=== PATIENT | male | born 1955 | race Caucasian/White ===

== ENCOUNTER 2018-11-17 18:14 | Inpatient (IN) | payer BC ==
--- NOTE | 2018-11-17 18:48 | ED ---
Lower Extremity - HPI Summary HPI Summary: This patient is a 62 year old male brought in by EMS presenting to [facility] with a chief complaint of gangrene in his bilateral toes. He had multiple dressings changed today. He reports pain in the toes and that he has been happening for a while. He reports cough. Pt denies any fever, chills, erythema of eyes, sore throat, CP, SOB, abdominal pain, N/V, dysuria, hematuria, myalgia, edema, rash, or dizziness. - History of Current Complaint Chief Complaint: EDExtremityLower Stated Complaint: PAIN IN BOTH FEET PER EMS Time Seen by Provider: 11/17/18 18:36 Hx Obtained From: Patient Severity Initially: Moderate Severity Currently: Moderate Pain Intensity: 6 Pain Scale Used: 0-10 Numeric - Allergies/Home Medications Allergies/Adverse Reactions: Allergies Allergy/AdvReac Type Severity Reaction Status Date / Time hydrochlorothiazide Allergy Unknown Verified 11/17/18 18:51 Reaction Details Latex, Natural Rubber Allergy Unknown Verified 11/17/18 18:51 Reaction Details shellfish derived Allergy Unknown Verified 11/17/18 18:51 Reaction Details zolpidem [From Ambien] Allergy Unknown Verified 11/17/18 18:51 Reaction Details Home Medications: Home Medications ALPRAZolam TAB* [Xanax TAB*] 0.25 mg PO BID PRN 11/17/18 [History Confirmed ] Acetaminophen [Acetaminophen Extra Strength] 1,000 mg PO TID PRN 11/17/18 [ History Confirmed 11/17/18] Aspirin EC TAB* [Ecotrin EC Low Dose 81 MG*] 81 mg PO DAILY 11/17/18 [History Confirmed 11/17/18] Atorvastatin* [Lipitor*] 80 mg PO DAILY 11/17/18 [History Confirmed 11/17/18] Cholecalciferol CAP/TAB(NF) [Vitamin D3 CAP/TAB (NF)] 50,000 unit PO WEEKLY [History Confirmed 11/17/18] Clopidogrel TAB* [Plavix TAB*] 75 mg PO DAILY 11/17/18 [History Confirmed ] Divalproex Sprinkle CAP* [Depakote Sprinkle CAP*] 125 mg PO BID 11/17/18 [ History Confirmed 11/17/18] Fluticasone NASAL SPRAY 50MCG* [Flonase NASAL SPRAY 50MCG*] 1 spray BOTH NARES DAILY 11/17/18 [History Confirmed 11/17/18] Folic Acid TAB* [Folvite TAB*] 1 mg PO DAILY 11/17/18 [History Confirmed ] Furosemide TAB* [Lasix TAB*] 20 mg PO DAILY 11/17/18 [History Confirmed 11/17/18 ] Glycerin ADULT SUPP* 1 supp CA DAILY PRN 11/17/18 [History Confirmed 11/17/18] Lidocaine PATCH 5%* [Lidoderm 5% Patch*] 2 patch TRANSDERM DAILY 11/17/18 [ History Confirmed 11/17/18] Magnesium Hydroxide LIQ* [Milk of Magnsami LIQ*] 30 ml PO DAILY PRN 11/17/18 [ History Confirmed 11/17/18] Melatonin 5 mg PO BEDTIME 11/17/18 [History Confirmed 11/17/18] Metoprolol Succinate XL TAB* [Toprol XL TAB*] 150 mg PO DAILY 11/17/18 [History Confirmed 11/17/18] Omeprazole CAP (NF) [Prilosec CAP* 20 MG] 40 mg PO DAILY 11/17/18 [History Confirmed 11/17/18] Potassium Chlor TAB* [Klor Con ER TAB*] 20 meq PO DAILY 11/17/18 [History Confirmed 11/17/18] Ranitidine HCl (Nf) [Zantac] 75 mg PO BID 11/17/18 [History Confirmed 11/17/18] Senna TAB 8.6 mg* [Senokot 8.6 mg TAB*] 1 tab PO QPM PRN 11/17/18 [History Confirmed 11/17/18] Sertraline* [Zoloft*] 25 mg PO BID 11/17/18 [History Confirmed 11/17/18] Tamsulosin CAP* [Flomax CAP*] 0.4 mg PO BEDTIME 11/17/18 [History Confirmed ] Thiamine TAB* [Vitamin B-1 TAB*] 100 mg PO DAILY 11/17/18 [History Confirmed ] amLODIPine TAB* [Norvasc 5 mg TAB*] 10 mg PO DAILY 11/17/18 [History Confirmed 11/17/18] traMADol TAB* [Ultram*] 50 mg PO Q6HR PRN 11/17/18 [History Confirmed 11/17/18] traZODone TAB* [Desyrel TAB*] 100 mg PO BEDTIME PRN 11/17/18 [History Confirmed 11/17/18] PMH/Surg Hx/FS Hx/Imm Hx Infectious Disease History: Unable to Obtain/Confirm Infectious Disease History: Denies: Traveled Outside the [place] in Last 30 Days Review of Systems Negative: Fever, Chills Negative: Erythema Negative: Sore Throat Negative: Chest Pain Positive: Cough. Negative: Shortness Of Breath Negative: Abdominal Pain, Vomiting, Nausea Negative: dysuria, hematuria Positive: Other - Toe pain, gangrene. Negative: Myalgia, Edema Negative: Rash Neurological: Other - neg: Dizziness All Other Systems Reviewed And Are Negative: No Physical Exam - Summary Physical Exam Summary: Constitutional: Well-developed, Well-nourished, Alert. (-) Distressed Skin: Warm, Dry. Tip of the left 4th toe down to the interphalangeal joint is necrotic. The nail beds of the third and 4th toe on the left foot are necrotic. Ulcerations at the base of the left 5th toe, base of the right 4th toe. HENT: Normocephalic; Atraumatic Eyes: Conjunctiva normal Neck: Musculoskeletal ROM normal neck. (-) JVD, (-) Stridor, (-) Tracheal deviation Cardio: Rhythm regular, rate normal, Heart sounds normal; Intact distal pulses; The pedal pulses are 2+ and symmetric. Radial pulses are 2+ and symmetric. (-) Murmur Pulmonary/Chest wall: Effort normal. (-) Respiratory distress, (-) Wheezes, (-) Rales Abd: Soft, (-) tenderness, (-) Distension, (-) Guarding, (-) Rebound Musculoskeletal: (-) Edema Lymph: (-) Cervical adenopathy Neuro: Alert, confused. Psych: Mood and affect Normal Triage Information Reviewed: Yes Vital Signs On Initial Exam: Initial Vitals Temp Pulse Resp BP Pulse Ox 99.6 F 88 18 126/75 95 11/17/18 18:33 11/17/18 18:33 11/17/18 18:33 11/17/18 18:33 11/17/18 18:33 Vital Signs Reviewed: Yes Diagnostics - Vital Signs Vital Signs Temp Pulse Resp BP Pulse Ox 11/17/18 18:33 99.6 F 88 18 126/75 95 - Laboratory Result Diagrams: 11/17/18 19:14 11/17/18 19:14 Lab Statement: Any lab studies that have been ordered have been reviewed, and results considered in the medical decision making process. - Radiology CXR Radiology Interpretation Completed By: ED Physician Summary of Radiographic Findings: No acute process. Pending offical radiologist report. Foot XR Radiology Interpretation Completed By: ED Physician Summary of Radiographic Findings: No fracture. Pending official radiologist report. Re-Evaluation - Re-Evaluation First Eval Re-Evaluation Time: 22:02 Comment: Spoke with hudson, states he does have altered mental status and that his toes do look worse than earlier today. [facility] wound clinic was considering sending him to the hospital. States he has follow up with vascular specialist. Lower Extremity Course/Dx - Course Course Of Treatment: This patient is a 62 year old male brought in by EMS presenting to [facility] with a chief complaint of gangrene in his bilateral toes. Physical exam reveals necrotic areas and ulcers in his toes and feet. Imaging was unremarkable. Patient has in tact dorsalis pedis pulses. No evidence of acute arterial occlusion. Dr. Redmond, Hospitalist, accepted the patient for admission. A plan for admission was discussed with the patient and he was agreeable with this plan. - Diagnoses Provider Diagnoses: Gangrene of foot, Osteomyelitis of toe, Delirium Discharge ED - Sign-Out/Discharge Documenting (check all that apply): Patient Departure - Admission Patient Received Moderate/Deep Sedation with Procedure: No - Discharge Plan Condition: Stable Disposition: ADMITTED TO [facility] - Attestation Statements Document Initiated by Scribe: Yes Documenting Scribe: Chai Blake Provider For Whom Scribe is Documenting (Include Credential): Andrew Catherine MD Scribe Attestation: IChai, scribed for Andrew Catherine MD on 11/17/18 at 2202. Status of Scribe Document: Ready
--- OUTSIDE RECORDS SUMMARY | 2018-11-17 18:54 | XMS REPORT | Continuity of Care Document ---
:1955 Author Organization [facility] Allergies and Intolerances No Allergy Data in the System Medications No Known Medications Problems No Data in the system Procedures No data in the system Results Laboratory Results Order: BASIC METABOLIC PANEL Specimen Source: Body Site: Legend: (G,H) = High, (GG,HH,CH,#H) = Above High Threshold, ( #,L) = Low, (##,CL,#L,LL) = Below Low Threshold, (C,CC,CA,#A,A) = Abnormal LOINC Test Result Flag Range Units Date 2951-2 1Sodium SerPl-sCnc 133 L 136-145 mmol/L 09/13/2018 08:35 2823-3 1Potassium SerPl-sCnc 4.2 3.5-5.2 mmol/L 09/13/2018 08:35 2075-0 1Chloride SerPl-sCnc 100 100-108 mmol/L 09/13/2018 08:35 2028-9 1CO2 SerPl-sCnc 23 21-32 mmol/L 09/13/2018 08:35 2345-7 1Glucose SerPl-mCnc 105 H 70-100 mg/dL 09/13/2018 08:35 3094-0 1BUN SerPl-mCnc 28 H 7-21 mg/dL 09/13/2018 08:35 2160-0 1Creat SerPl-mCnc 0.8 0.6-1.3 mg/dL 09/13/2018 08:35 Interpretive Hillary: 1Normal Kidney Function or Mild Disease - GFR >OR= 60 Chronic Kidney Disease - GFR 15-59 Renal Failure - GFR < 15 GFR not calculated on patients under 18 years of age. Calculated (estimated) GFR is based on the MDRD Study equation, which assumes a steady state for creatinine. Estimated GFR may not be appropriate for medication dosing. 22752-2 1Ca-I SerPl-mCnc 8.7 8.5-10.8 mg/dL 09/13/2018 08:35 27753-0 1GFR/BSA.pred SerPl-ArVRat >60 09/13/2018 08:35 Performing Lab Footnotes:[facility] - [id number] - [address] [place] [address] CHRISTINE SARAVIAOMD1 Order: CBC Specimen Source: Body Site: Legend: (G,H) = High, (GG,HH,CH, #H) = Above High Threshold, (#,L) = Low, (##,CL,#L,LL) = Below Low Threshold, (C ,CC,CA,#A,A) = Abnormal LOINC Test Result Flag Range Units Date 6690-2 1WBC # Bld Auto 6.4 4.8-10.8 K/uL 09/13/2018 08:35 25872-0 1RBC # Bld 2.79 L 4.60-6.20 M/uL 09/13/2018 08:35 718-7 1Hgb Bld-mCnc 9.1 L 13.5-18.0 gm/dL 09/13/2018 08:35 4544-3 1Hct VFr Bld Auto 28.0 L 41.0-53.0 % 09/13/2018 08:35 787-2 1MCV RBC Auto 100.0 80.0-100.0 fL 09/13/2018 08:35 51764-8 1MCHC RBC-mCnc 32.7 30.0-36.5 % 09/13/2018 08:35 09842-8 1MCH RBC Qn 32.8 27.0-34.0 pg 09/13/2018 08:35 20074-0 1RDW RBC 14.4 11.0-15.0 % 09/13/2018 08:35 777-3 1Platelet # Bld Auto 306 130-450 K/uL 09/13/2018 08:35 22455-0 1PMV Bld Auto 6.5 6.0-12.0 fL 09/13/2018 08:35 Performing Lab Footnotes:[facility] - [id number] - [address] [place] [address] CHRISTINE GONZALESCIOMD1 Social History Code Code System Social History Description Dates Observed Observation 958433622 SNOMED CT Current Smoking Unknown if ever Status smoked UNK AdministrativeGender Sex Assigned At Unknown Vital Signs No data in the system Goals Section No data in the system Health Concerns No data in the systemEncounter Diagnosis Date Code Code System Diagnosis Status I10 ICD10 ESSENTIAL PRIMARY HYPERTENSION Active Advance Directives No Data in the System Family History No data in the system Functional Status No data in the system Immunizations No data in the system Medical Equipment No data in the system Mental Status No data in the system Assessment and Plan Assessments No data in the systemPlan Of Treatment No data in the systemPending Tests No data in the system Hospital Discharge Instructions No data in the system Reason for Visit No data in the system
--- OUTSIDE RECORDS SUMMARY | 2018-11-17 18:54 | XMS REPORT | Continuity of Care Document ---
:1955 Author Organization [facility] Allergies and Intolerances No Allergy Data in [...] 2951-2 1Sodium SerPl-sCnc 133 L 136-145 mmol/L 09/20/2018 07:49 2823-3 1Potassium SerPl-sCnc 4.1 3.5-5.2 mmol/L 09/20/2018 07:49 2075-0 1Chloride SerPl-sCnc 100 100-108 mmol/L 09/20/2018 07:49 2028-9 1CO2 SerPl-sCnc 24 21-32 mmol/L 09/20/2018 07:49 2345-7 1Glucose SerPl-mCnc 80 70-100 mg/dL 09/20/2018 07:49 3094-0 1BUN SerPl-mCnc 20 7-21 mg/dL 09/20/2018 07:49 2160-0 1Creat SerPl-mCnc 0.7 0.6-1.3 mg/dL 09/20/2018 07:49 Interpretive Hillary: 1Normal Kidney Function or Mild Disease - GFR >OR= 60 Chronic Kidney Disease - GFR 15-59 Renal Failure - GFR < 15 GFR not calculated on patients under 18 years of age. Calculated (estimated) GFR is based on the MDRD Study equation, which assumes a steady state for creatinine. Estimated GFR may not be appropriate for medication dosing. 53226-2 1Ca-I SerPl-mCnc 8.6 8.5-10.8 mg/dL 09/20/2018 07:49 37286-6 1GFR/BSA.pred SerPl-ArVRat >60 09/20/2018 07:49 Performing Lab Footnotes:[facility] - [id number] - [address] [place] [address] CHRISTINE Alcaraz RICCIOMD1 Social History Code Code System Social History Description Dates Observed Observation [id number] SNOMED CT Current Smoking Unknown if ever [...]
--- OUTSIDE RECORDS SUMMARY | 2018-11-17 18:54 | XMS REPORT | Continuity of Care Document ---
:1955 Author Organization [facility] Allergies and Intolerances No Allergy Data in the System Medications No Known Medications Medications At Time Of Discharge No data in the system Problems No Data in the system Procedures No data in the system Results Laboratory Results Order: BASIC METABOLIC PANEL Specimen Source: Body Site: Legend: (G,H) = High, (GG,HH,CH,#H) = Above High Threshold, ( #,L) = Low, (##,CL,#L,LL) = Below Low Threshold, (C,CC,CA,#A,A) = Abnormal LOINC Test Result Flag Range Units Date 2952 1Sodium SerPl-sCnc 136 136-145 mmol/L 11/01/2018 08:25 2823-3 1Potassium SerPl-sCnc 4.1 3.5-5.2 mmol/L 11/01/2018 08:25 2075-0 1Chloride SerPl-sCnc 94 L 100-108 mmol/L 11/01/2018 08:25 2028-9 1CO2 SerPl-sCnc 30 21-32 mmol/L 11/01/2018 08:25 2345-7 1Glucose SerPl-mCnc 114 H 70-100 mg/dL 11/01/2018 08:25 3094-0 1BUN SerPl-mCnc 23 H 7-21 mg/dL 11/01/2018 08:25 2160-0 1Creat SerPl-mCnc 0.9 0.6-1.3 mg/dL 11/01/2018 08:25 Interpretive Hillary: 1Normal Kidney Function or Mild Disease - GFR >OR= 60 Chronic Kidney Disease - GFR 15-59 Renal Failure - GFR < 15 GFR not calculated on patients under 18 years of age. Calculated (estimated) GFR is based on the MDRD Study equation, which assumes a steady state for creatinine. Estimated GFR may not be appropriate for medication dosing. 84329-1 1Ca-I SerPl-mCnc 9.0 8.5-10.8 mg/dL 11/01/2018 08:25 76520-2 1GFR/BSA.pred SerPl-ArVRat >60 11/01/2018 08:25 Performing Lab Footnotes:[facility] - [id number] - [address] [place] [address] CHRISTINE Alcaraz RICCIOMD1 Social History Code Code System Social History Description Dates Observed Observation [id number] SNOMED CT Current Smoking Unknown if ever Status smoked UNK AdministrativeGender Sex Assigned At Unknown Vital Signs No data in the system Goals Section No data in the system Health Concerns No data in the systemEncounter Diagnosis Date Code Code System Diagnosis Status R60.9 ICD10 EDEMA UNSPECIFIED Active Advance Directives No Data in the System Encounters Encounter Diagnosis Location Date EDEMA UNSPECIFIED [facility] 11/01/2018 Family History Family history not obtained Functional Status No data in the system [...]
[2018-11-17 19:23] LABS: ABS Eosinophils 0.4 10^3/ul (0-0.6); ABS Lymphocytes 1.2 10^3/ul (1.0-4.8); ABS Monocytes 0.7 10^3/ul (0-0.8); ABS Neutrophils 7.4 10^3/ul (1.5-7.7); Eosinophil % 3.6 %; Hematocrit 26 % (42-52); Hemoglobin 8.6 g/dL (14.0-18.0); Lymphocyte % 12.8 %; Mean Corpuscular HGB Conc 33 g/dL (31-36); Mean Corpuscular Hemoglobin 31 pg (27-31); Mean Corpuscular Volume 93 fL (80-94); Mean Platelet Volume 6.6 fL (7.4-10.4); Platelet Count 283 10^3/uL (150-450); Red Blood Count 2.78 10^6 /uL (4.18-5.48); Red Cell Distribution Width 16 % (10-15); White Blood Count 9.7 10^3/uL (3.5-10.8)
[2018-11-17 19:40] LABS: ALT 38 U/L (7-52); AST 16 U/L (13-39); Alkaline Phosphatase 76 U/L (34-104); Anion Gap 7 mmol/L (2-11); BUN/Creatinine Ratio 21.3 (8-20); Blood Urea Nitrogen 20 mg/dL (6-24); CO2 Carbon Dioxide 25 mmol/L (22-32); Calcium 8.1 mg/dL (8.6-10.3); Chloride 102 mmol/L (101-111); EGFR African American 98.1 (>60); EGFR Non-African American 81.1 (>60); Globulin 2.9 g/dL (2-4); Glucose 105 mg/dL (70-100); Potassium 3.9 mmol/L (3.5-5.0); Sodium 134 mmol/L (135-145); Total Protein 5.9 g/dL (6.4-8.9)
[2018-11-17 19:42] LABS: Troponin I 0.01 ng/mL (<0.04)
[2018-11-17] MEDS ORDERED: Vancomycin(*) 1,000 MG in NS 0.9% 250 ML* 250 ML IVPB ONE (19:45)
[2018-11-17] MEDS ORDERED: HYDROcodone/ACETAMIN 5-325 MG* 1 TAB PO ONE (20:20)
[2018-11-17] MEDS ORDERED: Morphine 4 MG/ML VIAL (1 ml) 4 MG/ML VIAL IV ONE (21:10)
[2018-11-17 22:12] LABS: Alcohol < 10 mg/dL (<10)
[2018-11-17] MEDS ORDERED: NS 0.9% 1000 ML** 1,000 ML IV SCH (23:45)
[2018-11-18] MEDS: traMADol TAB* 50 MG PO PRN ×3 (01:23→17:55)
[2018-11-18] MEDS: Enoxaparin(*) 40 MG/0.4 ML SYR SUBCUT SCH ×2 (01:25→20:42)
[2018-11-18] MEDS: traZODone TAB* 100 MG PO PRN (01:25)
[2018-11-18] MEDS: ALPRAZolam TAB* 0.25 MG PO PRN ×2 (01:52→12:05)
--- NOTE | 2018-11-18 02:41 | HP ---
CC: Dr. Eve West ADMISSION HISTORY AND PHYSICAL: DATE OF ADMISSION: 11/17/18 CHIEF COMPLAINT: Worsening left fourth toe and fifth toe possible osteomyelitis and necrosis and lea grene. HISTORY OF PRESENT ILLNESS: This is a 62-year-old gentleman with past medical history of ASD, anxiet y, hypertension, hyperlipidemia, gastroesophageal reflux disease, unfortunately had a stroke in June 29 with right hemiplegia, [facility] since then, initially at [facility], but after havi ng multiple falls, the niece who is the healthcare proxy requested the patient to be [facility], so now he is resident at [facility], was recently admitted to [facility] where he has most of his care done for the last few months for altered mental status, but the re peat testing did not reveal any obvious source. The patient at baseline does converse, but is disori ented to time and place, was still saying that he is in [place], so the rest of the history was obta ined by the niece who was present at bedside. Per niece, the patient has been having lower extremity swelling since he was transferred to [facility] 2 months ago. The swelling a lso caused wounds and severe pain and he has been following [facility] at [facility] and had a [facility] appointment with them today, who suggested that he should probably be seen by surgical team f or debridement versus removal as his toes are looking more gangrenous. Niece did not suggest any fev er that the patient may have had. The patient also had some cough, but otherwise denied any pain suc h as chest pain, breathing difficulty, abdominal pain, nausea, vomiting, and diarrhea. PAST MEDICAL HISTORY: As mentioned, ASD, anxiety, hypertension, hyperlipidemia, gastroesophageal ref lux disease, stroke in June 2018 with the right-sided hemiplegia which caused weakness in both right u pper extremity and right lower extremity, but he regained some of his strength on his right lower ext remity and is able to ambulate with assistance. 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 He also has chroni c lower extremity edema for the last 2 months, unclear etiology and has been getting Lasix. He also has chronic lower extremity wounds that he is getting debrided. PAST SURGICAL HISTORY: There is some suggestion that the patient may have had a knee surgery, but I do not see a scar in either knee and we do not know the laterality for his knee surgery. HOME MEDICATIONS: The patient is currently on, 1. Vitamin D3 50,000 units p.o. weekly. 2. Trazodone 100 mg p.o. daily at bedtime. 3. Ultram 50 mg q.6 hours p.r.n. 4. Thiamine 100 mg p.o. daily. 5. Sertraline 25 mg p.o. b.i.d. 6. Senokot 1 tablet p.o. q.p.m. p.r.n. 7. Zantac 75 mg p.o. b.i.d. 8. Klor-Con 20 mEq oral daily. 9. Omeprazole 40 mg oral daily. 10. Milk of magnesia 30 mL p.r.n. 11. Metoprolol 150 mg oral daily. 12. Melatonin 5 mg daily at bedtime. 13. Lidocaine 2 patches transdermally daily. 14. Glycerin suppository daily p.r.n. constipation. 15. Lasix 20 mg oral daily. 16. Folic acid 1 mg p.o. daily. 17. Tamsulosin 0.4 mg p.o. at bedtime. 18. Flonase 1 spray both nares daily. 19. Depakote 225 mg p.o. b.i.d. 20. Plavix 75 mg oral daily. 21. Lipitor 80 mg oral daily. 22. Aspirin 81 mg oral daily. 23. Amlodipine 10 mg oral daily. 24. Xanax 0.25 mg p.o. b.i.d. p.r.n. 25. Extra Strength Tylenol t.i.d. p.r.n. ALLERGIES: The patient is allergic to fish and there is documentation of allergies. The patient is documented to have allergies to HYDROCHLOROTHIAZIDE, LATEX and AMBIEN, reaction is unknown. FAMILY HISTORY: The patient's mother had a history of stroke, but at old age according to the n iece, but otherwise no other family history was obtained. SOCIAL HISTORY: The patient did have a history of smoking per niece. No other alcohol or drug use. According to the niece, he is pretty estranged with the family, has been single all his life and the only close relative is his sister and his niece who was present at the bedside and then they are bot h the healthcare proxy and they have suggested that the patient is confused and they suspect that it would be best interest for him to be DNR/DNI and have filled up MOLST form accordingly indicating DNR /DNI and no feeding tube, but would like everything else short of that and are okay with antibiotics and any surgical debridement if necessary. REVIEW OF SYSTEMS: A 14-point review of systems did not reveal any information, although the patient is very unreliable with respect to review of systems and the niece did not see any other history oth er than what is stated in the HPI. PHYSICAL EXAMINATION GENERAL: The patient is awake and alert, seems to be answering questions, but not oriented to place or time, but oriented to person. VITAL SIGNS: In the ER, temperature was recorded at 99.6, BP was noted to be 116/61, heart rate 74, respiration rate was noted to be 18, saturating 99% on room air. HEAD AND NECK: Atraumatic, normocephalic. Bilateral pupils are reactive. Oral mucosa was dry. Nec k is supple. No jugular venous distention. LUNGS: Clear to auscultation bilaterally. No wheezing, rhonchi, or rales. HEART: S1, S2. Regular rate and rhythm. ABDOMEN: Obese, soft, nontender. EXTREMITIES: The patient did have multiple lower extremity wounds, had trace bipedal edema and there are changes on his left toes, which was suggestive of dry gangrene. No obvious cellulitic changes a round. DIAGNOSTIC STUDIES/LAB DATA: CBC shows normal white count, hemoglobin shows mild anemia with hemogl obin of 8.6, hematocrit of 26, platelet count was noted to be 283. Coagulation profile unremarkable. Comprehensive metabolic panel was unremarkable. Troponin was negative 2 sets. Serum alcohol level was less than 10. Urinalysis is still pending. IMPRESSION: This is a 62-year-old gentleman with stroke mostly right upper extremity weakness, hypert ension, dyslipidemia, gastroesophageal reflux disease, anxiety, ASD, here due to chronic lower extrem ity wounds with some changes of dry gangrene. ER physician already gave a dose of vancomycin, althou gh I do not see any signs of sepsis at this point such as fever, tachycardia, tachypnea, or leukocyto sis. For now, we will perform an MRI to rule out any osteomyelitis. 1. Lower extremity chronic wound with worsening changes especially on the left side. Followup MRI r esult. We will hold antibiotics for now and we will consider surgical consult based on the MRI read. 2. Anemia, likely anemia of chronic disease. We will perform anemia panel with iron, TIBC, ferritin , and B12 as well as folate and replace any as necessary. 3. History of hypertension. Restart home medications with the holding parameters. 4. History of dyslipidemia. Restart home medications. 5. History of gastroesophageal reflux disease. Restart home medications. 6. History of anxiety. Restart home medications. 7. History of stroke with right-sided hemiplegia. Continue to monitor and continue aspirin, Plavix, and statin. 8. History of chronic lower extremity wounds and swelling. We will obtain records from previous hos pitalization at the [facility] and [facility] to see if previous echocardiogram and veno us duplex were performed to evaluate the cause of the lower extremity edema. If they were not perfor med, we could consider testing those to rule out any etiology of the swelling. 9. DVT prophylaxis with Lovenox. 10. Code status: As mentioned, DNR/DNI and no feeding tube with the sister and the niece being the surrogate decision makers. [id number] #: [id number]
[2018-11-18 05:50] LABS: ABS Basophils 0.1 10^3/ul (0-0.2); ABS Eosinophils 0.4 10^3/ul (0-0.6); ABS Lymphocytes 1.9 10^3/ul (1.0-4.8); ABS Monocytes 0.9 10^3/ul (0-0.8); ABS Neutrophils 7.8 10^3/ul (1.5-7.7); Eosinophil % 3.7 %; Hematocrit 27 % (42-52); Hemoglobin 8.9 g/dL (14.0-18.0); Lymphocyte % 17.4 %; Mean Corpuscular HGB Conc 33 g/dL (31-36); Mean Corpuscular Hemoglobin 31 pg (27-31); Mean Corpuscular Volume 94 fL (80-94); Platelet Count 261 10^3/uL (150-450); Red Blood Count 2.89 10^6 /uL (4.18-5.48); Red Cell Distribution Width 16 % (10-15); White Blood Count 11.1 10^3/uL (3.5-10.8)
[2018-11-18 06:05] LABS: Anion Gap 4 mmol/L (2-11); BUN/Creatinine Ratio 22.6 (8-20); Blood Urea Nitrogen 19 mg/dL (6-24); CO2 Carbon Dioxide 26 mmol/L (22-32); Calcium 8.2 mg/dL (8.6-10.3); Chloride 103 mmol/L (101-111); EGFR African American 111.7 (>60); EGFR Non-African American 92.3 (>60); Glucose 73 mg/dL (70-100); Potassium 4.3 mmol/L (3.5-5.0); Sodium 133 mmol/L (135-145)
[2018-11-18 06:30] LABS: % Iron Saturation 15 % (15-55); Iron 39 ug/dL (50-212); Total Iron Binding Capacity 252 mcg/dL (250-450); Transferrin 180 mg/dL (203-362)
[2018-11-18 06:44] LABS: Ferritin 257.2 ng/mL (24-336)
[2018-11-18 06:47] LABS: Folate 19.14 ng/mL (>3.99)
[2018-11-18 09:35] LABS: Urine Appearance Clear; Urine Bilirubin Negative (Negative); Urine Blood Negative (Negative); Urine Color Straw; Urine Glucose Negative (Negative); Urine Ketones Negative (Negative); Urine Nitrite Negative (Negative); Urine Protein Negative (Negative); Urine Specific Gravity 1.009 (1.010-1.030); Urine Urobilinogen Negative (Negative)
[2018-11-18] MEDS: Atorvastatin* 80 MG TAB PO SCH (10:36)
[2018-11-18] MEDS: amLODIPine TAB* 5 MG PO SCH (10:36)
[2018-11-18] MEDS: Aspirin EC TAB* 81 MG TAB.EC PO SCH (10:36)
[2018-11-18] MEDS: Clopidogrel TAB* 75 MG PO SCH (10:36)
[2018-11-18] MEDS: Divalproex Sprinkle CAP* 125 MG PO SCH ×2 (10:36→20:41)
[2018-11-18] MEDS: Pantoprazole TAB * 40 MG TAB PO SCH (10:37)
[2018-11-18] MEDS: Metoprolol Succinate XL TAB* 100 MG PO SCH (10:37)
[2018-11-18] MEDS: Thiamine TAB* 100 MG TAB PO SCH (10:37)
[2018-11-18] MEDS: Potassium Chlor TAB* 20 MEQ TAB.ER PO SCH (10:37)
[2018-11-18] MEDS: Fluticasone NASAL SPRAY 50MCG* 16 gm SPRAY BTL BOTH NARES SCH (10:37)
[2018-11-18] MEDS: Sertraline* 25 MG TAB PO SCH ×2 (10:37→20:41)
[2018-11-18] MEDS: Famotidine TAB* 20 MG PO SCH (10:37)
[2018-11-18] MEDS: Furosemide TAB* 20 MG PO SCH (10:37)
[2018-11-18] MEDS: Lidocaine PATCH 5%* 1 PATCH TRANSDERM SCH (10:37)
[2018-11-18] MEDS: Folic Acid TAB* 1 MG PO SCH (10:37)
[2018-11-18] MEDS: Magnesium Hydroxide LIQ* 30 ML UDC PO PRN (12:04)
[2018-11-18] MEDS: Senna TAB 8.6 mg* TAB PO PRN (12:06)
[2018-11-18 14:49] LABS: Rapid Strep Molecular POSITIVE (Negative)
--- NOTE | 2018-11-18 16:46 | PN ---
Subjective Date of Service: 11/18/18 Interval History: Mr. Fuentes is feeling fine today. He will not offer any further information, but denies CP, SOB, N/V. He is eating on my exam. Niece at bedside feels he is much more comfortable than he has been recently. She thinks his LE edema has improved. Nursing reports recent Strep A outbreak at [facility]. Family History: Unchanged from Admission Social History: Unchanged from Admission Past Medical History: Unchanged from Admission Objective Active Medications: Alprazolam (Xanax Tab*) 0.25 mg PO BID PRN AGITATION/ANXIETY Amlodipine Besylate (Norvasc Tab*) 10 mg PO DAILY ROJAS Amoxicillin/Clavulanate Potassium (Augmentin Tab*) 500 mg PO BID ROAJS Aspirin (Aspirin Ec Tab*) 81 mg PO DAILY ROJAS Atorvastatin Calcium (Lipitor*) 80 mg PO DAILY ROJAS Cholecalciferol (Vitamin D3 Cap/Tab (Nf)) 1 cap PO WEEKLY ROJAS Clopidogrel Bisulfate (Plavix Tab*) 75 mg PO DAILY ROJAS Divalproex Sodium (Depakote Sprinkle Cap*) 125 mg PO BID ROJAS Enoxaparin Sodium (Lovenox(*)) 40 mg SUBCUT BEDTIME ROJAS Famotidine (Pepcid Tab*) 20 mg PO DAILY ROJAS Fluticasone Propionate (Flonase Nasal [place] 50mcg*) 1 spray BOTH NARES DAILY ROJAS Folic Acid (Folvite Tab*) 1 mg PO DAILY ROJAS Furosemide (Lasix Tab*) 20 mg PO DAILY ROJAS Glycerin (Glycerin Adult Supp*) 1 supp [place] DAILY PRN CONSTIPATION Sodium Chloride (Ns 0.9% 1000 Ml) 1,000 mls @ 75 mls/hr IV PER RATE ROJAS Lidocaine (Lidoderm 5% Patch*) 2 patch TRANSDERM DAILY ROJAS Magnesium Hydroxide (Milk Of Magnesia Liq*) 30 ml PO DAILY PRN CONSTIPATION Melatonin (Melatonin) 3 mg PO BEDTIME ROJAS Metoprolol Succinate (Toprol Xl Tab*) 150 mg PO DAILY ROJAS Pantoprazole Sodium (Protonix Tab*) 40 mg PO DAILY ROJAS Potassium Chloride (Klor Con Er Tab*) 20 meq PO DAILY ROJAS Senna (Senokot 8.6 Mg Tab*) 1 tab PO QPM PRN CONSTIPATION Sertraline HCl (Zoloft*) 25 mg PO BID ROJAS Tamsulosin HCl (Flomax Cap*) 0.4 mg PO BEDTIME ROJAS Thiamine HCl (Vitamin B-1 Tab*) 100 mg PO DAILY ROJAS Tramadol HCl (Ultram*) 50 mg PO Q6HR PRN PAIN - MODERATE Trazodone HCl (Desyrel Tab*) 100 mg PO BEDTIME PRN INSOMNIA Vital Signs - 8 hr 11/18/18 11/18/18 11/18/18 12:00 12:05 15:15 Temperature 97.4 F Pulse Rate 64 Respiratory 16 20 16 Rate Blood Pressure 117/60 (mmHg) O2 Sat by Pulse 98 Oximetry Oxygen Devices in Use Now: None Appearance: Elderly male sitting in bed in NAD Ears/Nose/Mouth/Throat: Mucous Membranes Moist Neck: NL Appearance and Movements; NL JVP, Trachea Midline Respiratory: Symmetrical Chest Expansion and Respiratory Effort, Clear to Auscultation Cardiovascular: NL Sounds; No Murmurs; No JVD, RRR Abdominal: NL Sounds; No Tenderness; No Distention Extremities: - - +1 pitting BLE Skin: - - Multiple ulcers BLE Neurological: - - Oriented to self Lines/Tubes/Other Access: Clean, Dry and Intact Peripheral IV Nutrition: Taking PO's Result Diagrams: 11/18/18 05:33 11/18/18 05:33 Assess/Plan/Problems-Billing Assessment: Mr. 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 - Patient Problems (1) Gangrene of left foot Code(s): I96 - GANGRENE, NOT ELSEWHERE CLASSIFIED Comment: - Left 4th toe - No evidence of active infection - MRI Tuesday to r/o osteomyelitis (2) Lower extremity edema Code(s): R60.0 - LOCALIZED EDEMA Comment: - With associated wounds, new in the last 2 months - Check US and echo as niece confirms these were not done during any recent hospitalizations - Continue furosemide (3) Strep pharyngitis Code(s): J02.0 - STREPTOCOCCAL PHARYNGITIS Comment: - Recent outbreak at [facility] - Asymptomatic, but will treat accordingly - Start amoxicillin (4) Anemia Code(s): D64.9 - ANEMIA, UNSPECIFIED Comment: - Stable - Suspect anemia of chronic disease (5) History of CVA with residual deficit Code(s): I69.30 - UNSPECIFIED SEQUELAE OF CEREBRAL INFARCTION Comment: - Baseline residual right sided hemiparesis - Reportedly with 100% bilat carotid stenosis - Continue aspirin, Plavix (6) Hypertension Code(s): I10 - ESSENTIAL (PRIMARY) HYPERTENSION Comment: - Normotensive - Continue metoprolol (7) Hyperlipidemia Code(s): E78.5 - HYPERLIPIDEMIA, UNSPECIFIED Comment: - Continue atorvastatin (8) GERD (gastroesophageal reflux disease) Code(s): K21.9 - GASTRO-ESOPHAGEAL REFLUX DISEASE WITHOUT ESOPHAGITIS Comment : - Continue pantoprazole (9) DVT prophylaxis Code(s): Z29.9 - ENCOUNTER FOR PROPHYLACTIC MEASURES, UNSPECIFIED Comment: - Lovenox (10) DNR (do not resuscitate) Comment: Status and Disposition: Inpatient, awaiting MRI. Anticipate d/c back to [facility] when medically stable. Attending: Korin Park
[2018-11-18] MEDS: Amoxicillin/Clavulanate TAB* 500 MG PO SCH ×2 (17:55→20:41)
[2018-11-18] MEDS: Melatonin 3 MG TAB PO SCH (20:41)
[2018-11-18] MEDS: Tamsulosin CAP* 0.4 MG PO SCH (20:42)
[2018-11-18] MEDS: Lidocaine Patch REMOVE* 1 NOTE MISC PATCH OFF SCH (21:03)
[2018-11-19] MEDS: traMADol TAB* 50 MG PO PRN ×3 (01:23→16:10)
[2018-11-19] MEDS: ALPRAZolam TAB* 0.25 MG PO PRN (01:23)
[2018-11-19] MEDS: traZODone TAB* 100 MG PO PRN ×2 (04:12→23:54)
[2018-11-19] MEDS ORDERED: Influenza VAC *QUAD* 2019-20* 0.5 ML SYRINGE IM ONE (09:00)
[2018-11-19] MEDS: Metoprolol Succinate XL TAB* 100 MG PO SCH (09:54)
[2018-11-19] MEDS: Aspirin EC TAB* 81 MG TAB.EC PO SCH (09:58)
[2018-11-19] MEDS: Atorvastatin* 80 MG TAB PO SCH (09:58)
[2018-11-19] MEDS: Clopidogrel TAB* 75 MG PO SCH (09:59)
[2018-11-19] MEDS: Thiamine TAB* 100 MG TAB PO SCH (09:59)
[2018-11-19] MEDS: Famotidine TAB* 20 MG PO SCH (09:59)
[2018-11-19] MEDS: Sertraline* 25 MG TAB PO SCH ×2 (09:59→22:35)
[2018-11-19] MEDS: Potassium Chlor TAB* 20 MEQ TAB.ER PO SCH (09:59)
[2018-11-19] MEDS: amLODIPine TAB* 5 MG PO SCH (09:59)
[2018-11-19] MEDS: Furosemide TAB* 20 MG PO SCH (09:59)
[2018-11-19] MEDS: Pantoprazole TAB * 40 MG TAB PO SCH (09:59)
[2018-11-19] MEDS: Folic Acid TAB* 1 MG PO SCH (10:00)
[2018-11-19] MEDS: Lidocaine PATCH 5%* 1 PATCH TRANSDERM SCH (10:00)
[2018-11-19] MEDS: Fluticasone NASAL SPRAY 50MCG* 16 gm SPRAY BTL BOTH NARES SCH (10:00)
[2018-11-19] MEDS: Divalproex Sprinkle CAP* 125 MG PO SCH ×2 (10:00→22:37)
[2018-11-19] MEDS: Amoxicillin/Clavulanate TAB* 500 MG PO SCH ×2 (10:00→22:36)
[2018-11-19] MEDS: Glycerin ADULT SUPP PR PRN (10:00)
[2018-11-19] MEDS: Magnesium Hydroxide LIQ* 30 ML UDC PO PRN (10:03)
[2018-11-19] MEDS ORDERED: Sodium Phosphate ADULT ENEMA* 118 ml bottle PR PRN (10:26)
[2018-11-19 11:15] LABS: ABS Basophils 0.1 10^3/ul (0-0.2); ABS Eosinophils 0.3 10^3/ul (0-0.6); ABS Lymphocytes 0.8 10^3/ul (1.0-4.8); ABS Monocytes 0.7 10^3/ul (0-0.8); ABS Neutrophils 5.6 10^3/ul (1.5-7.7); Eosinophil % 3.8 %; Hematocrit 29 % (42-52); Hemoglobin 9.7 g/dL (14.0-18.0); Mean Corpuscular HGB Conc 33 g/dL (31-36); Mean Corpuscular Hemoglobin 31 pg (27-31); Mean Corpuscular Volume 93 fL (80-94); Mean Platelet Volume 6.7 fL (7.4-10.4); Platelet Count 280 10^3/uL (150-450); Red Blood Count 3.12 10^6 /uL (4.18-5.48); Red Cell Distribution Width 16 % (10-15); White Blood Count 7.5 10^3/uL (3.5-10.8)
--- NOTE | 2018-11-19 14:22 | PN ---
Subjective Date of Service: 11/19/18 Interval History: Mr. Fuentes is not waking up to speak with me, but will nod when asked if he is feeling okay. He had been up most of the morning and did eat a full breakfast. Has been making some attempts to get OOB. No concerns from nursing. Family History: Unchanged from Admission Social History: Unchanged from Admission Past Medical History: Unchanged from Admission Objective Active Medications: Alprazolam (Xanax Tab*) 0.25 mg PO BID PRN AGITATION/ANXIETY Amlodipine Besylate (Norvasc Tab*) 10 mg PO DAILY ROJAS Amoxicillin/Clavulanate Potassium (Augmentin Tab*) 500 mg PO BID ROJAS Aspirin (Aspirin Ec Tab*) 81 mg PO DAILY ROJAS Atorvastatin Calcium (Lipitor*) 80 mg PO DAILY ROJAS Cholecalciferol (Vitamin D3 Cap/Tab (Nf)) 1 cap PO WEEKLY ROJAS Clopidogrel Bisulfate (Plavix Tab*) 75 mg PO DAILY ROJAS Divalproex Sodium (Depakote Sprinkle Cap*) 125 mg PO BID ROJAS Enoxaparin Sodium (Lovenox(*)) 40 mg SUBCUT BEDTIME ROJAS Famotidine (Pepcid Tab*) 20 mg PO DAILY ROJSA Fluticasone Propionate (Flonase Nasal [place] 50mcg*) 1 spray BOTH NARES DAILY ROJAS Folic Acid (Folvite Tab*) 1 mg PO DAILY ROJAS Furosemide (Lasix Tab*) 20 mg PO DAILY ROJAS Glycerin (Glycerin Adult Supp*) 1 supp [place] DAILY PRN CONSTIPATION Lidocaine (Lidoderm 5% Patch*) 2 patch TRANSDERM DAILY ROJAS Magnesium Hydroxide (Milk Of Magnesia Liq*) 30 ml PO DAILY PRN CONSTIPATION Melatonin (Melatonin) 3 mg PO BEDTIME ROJAS Metoprolol Succinate (Toprol Xl Tab*) 150 mg PO DAILY ROJAS Pantoprazole Sodium (Protonix Tab*) 40 mg PO DAILY ROJAS Potassium Chloride (Klor Con Er Tab*) 20 meq PO DAILY ROJAS Senna (Senokot 8.6 Mg Tab*) 1 tab PO QPM PRN CONSTIPATION Sertraline HCl (Zoloft*) 25 mg PO BID ROJAS Sodium Biphosphate/Sodium Phosphate (Fleet Enema*) 1 bottle [place] DAILY PRN CONSTIPATION Tamsulosin HCl (Flomax Cap*) 0.4 mg PO BEDTIME ROJAS Thiamine HCl (Vitamin B-1 Tab*) 100 mg PO DAILY ROJAS Tramadol HCl (Ultram*) 50 mg PO Q6HR PRN PAIN - MODERATE Trazodone HCl (Desyrel Tab*) 100 mg PO BEDTIME PRN INSOMNIA Vital Signs - 8 hr 11/19/18 11/19/18 11/19/18 08:00 09:57 11:52 Temperature 97.3 F 97.6 F Pulse Rate 63 75 Respiratory 15 15 18 Rate Blood Pressure 145/72 145/80 (mmHg) O2 Sat by Pulse 100 100 Oximetry Oxygen Devices in Use Now: None Appearance: Elderly male laying in bed in NAD Neck: NL Appearance and Movements; NL JVP, Trachea Midline Respiratory: Symmetrical Chest Expansion and Respiratory Effort, Clear to Auscultation Cardiovascular: NL Sounds; No Murmurs; No JVD, RRR Abdominal: NL Sounds; No Tenderness; No Distention Extremities: - - Mild nonpitting BLE Neurological: - - Wakes to voice Lines/Tubes/Other Access: Clean, Dry and Intact Peripheral IV Nutrition: Taking PO's Result Diagrams: 11/19/18 10:55 11/18/18 05:33 Assess/Plan/Problems-Billing Assessment: Mr. 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 - Patient Problems (1) Gangrene of left foot Code(s): I96 - GANGRENE, NOT ELSEWHERE CLASSIFIED Comment: - Left 4th toe - No evidence of cellulitis - MRI Tuesday to r/o osteomyelitis (2) Lower extremity edema Code(s): R60.0 - LOCALIZED EDEMA Comment: - With associated wounds, new in the last 2 months - Check US and echo as niece confirms these were not done during any recent hospitalizations - Continue furosemide (3) Strep pharyngitis Code(s): J02.0 - STREPTOCOCCAL PHARYNGITIS Comment: - Recent outbreak at [facility] with positive swab in hospital - Continue amoxicillin (4) Anemia Code(s): D64.9 - ANEMIA, UNSPECIFIED Comment: - Stable - Suspect anemia of chronic disease (5) History of CVA with residual deficit Code(s): I69.30 - UNSPECIFIED SEQUELAE OF CEREBRAL INFARCTION Comment: - Baseline residual right sided hemiparesis - Reportedly with 100% bilat carotid stenosis - Continue aspirin, Plavix (6) Hypertension Code(s): I10 - ESSENTIAL (PRIMARY) HYPERTENSION Comment: - Normotensive, SBP 140s - Continue metoprolol (7) Hyperlipidemia Code(s): E78.5 - HYPERLIPIDEMIA, UNSPECIFIED Comment: - Continue atorvastatin (8) GERD (gastroesophageal reflux disease) Code(s): K21.9 - GASTRO-ESOPHAGEAL REFLUX DISEASE WITHOUT ESOPHAGITIS Comment : - Continue pantoprazole (9) DVT prophylaxis Code(s): Z29.9 - ENCOUNTER FOR PROPHYLACTIC MEASURES, UNSPECIFIED Comment: - Lovenox (10) DNR (do not resuscitate) Comment: Status and Disposition: Inpatient, awaiting MRI. Anticipate d/c back to [facility] when medically stable. Attending: Shira Hammond
[2018-11-19] MEDS: Melatonin 3 MG TAB PO SCH (22:36)
[2018-11-19] MEDS: Enoxaparin(*) 40 MG/0.4 ML SYR SUBCUT SCH (22:37)
[2018-11-19] MEDS: Tamsulosin CAP* 0.4 MG PO SCH (22:45)
[2018-11-19] MEDS: Lidocaine Patch REMOVE* 1 NOTE MISC PATCH OFF SCH (22:50)
[2018-11-20] MEDS: Atorvastatin* 80 MG TAB PO SCH (10:49)
[2018-11-20] MEDS: Thiamine TAB* 100 MG TAB PO SCH (10:49)
[2018-11-20] MEDS: Divalproex Sprinkle CAP* 125 MG PO SCH ×2 (10:49→22:54)
[2018-11-20] MEDS: Famotidine TAB* 20 MG PO SCH (10:50)
[2018-11-20] MEDS: Amoxicillin/Clavulanate TAB* 500 MG PO SCH ×2 (10:50→22:54)
[2018-11-20] MEDS: amLODIPine TAB* 5 MG PO SCH (10:50)
[2018-11-20] MEDS: Furosemide TAB* 20 MG PO SCH (10:50)
[2018-11-20] MEDS: Aspirin EC TAB* 81 MG TAB.EC PO SCH (10:50)
[2018-11-20] MEDS: Pantoprazole TAB * 40 MG TAB PO SCH (10:51)
[2018-11-20] MEDS: Fluticasone NASAL SPRAY 50MCG* 16 gm SPRAY BTL BOTH NARES SCH (10:51)
[2018-11-20] MEDS: Potassium Chlor TAB* 20 MEQ TAB.ER PO SCH (10:51)
[2018-11-20] MEDS: Folic Acid TAB* 1 MG PO SCH (10:51)
[2018-11-20] MEDS: Clopidogrel TAB* 75 MG PO SCH (10:51)
[2018-11-20] MEDS: Sertraline* 25 MG TAB PO SCH ×2 (10:51→22:54)
[2018-11-20] MEDS: Metoprolol Succinate XL TAB* 100 MG PO SCH (10:51)
[2018-11-20] MEDS: Lidocaine PATCH 5%* 1 PATCH TRANSDERM SCH (10:52)
[2018-11-20] MEDS: ALPRAZolam TAB* 0.25 MG PO PRN ×2 (12:08→22:54)
[2018-11-20] MEDS ORDERED: HYDROcodone/ACETAMIN 5-325 MG* 1 TAB PO PRN (12:37)
[2018-11-20 13:53] LABS: BUN/Creatinine Ratio 23.3 (8-20); Calcium 8.9 mg/dL (8.6-10.3); EGFR African American 131.3 (>60); EGFR Non-African American 108.5 (>60); Potassium 4.6 mmol/L (3.5-5.0)
--- NOTE | 2018-11-20 13:54 | PN ---
Subjective Date of Service: 11/20/18 Interval History: Mr. Fuentes is not feeling well today. He is initially unable to provide any reasons why, but when asked about pain he does admit to being in pain and he is not able to get comfortable in bed. There is a staff member sitting in the room with him d/t restlessness. No further concerns from nursing. Family History: Unchanged from Admission Social History: Unchanged from Admission Past Medical History: Unchanged from Admission Objective Active Medications: Hydrocodone Bitart/Acetaminophen ([place] 5-325 Tab*) 1 tab PO Q4H PRN PAIN - SEVERE Alprazolam (Xanax Tab*) 0.25 mg PO BID PRN AGITATION/ANXIETY Amlodipine Besylate (Norvasc Tab*) 10 mg PO DAILY ROJAS Amoxicillin/Clavulanate Potassium (Augmentin Tab*) 500 mg PO BID ROJAS Aspirin (Aspirin Ec Tab*) 81 mg PO DAILY ROJAS Atorvastatin Calcium (Lipitor*) 80 mg PO DAILY ROJAS Cholecalciferol (Vitamin D3 Cap/Tab (Nf)) 1 cap PO WEEKLY ROJAS Clopidogrel Bisulfate (Plavix Tab*) 75 mg PO DAILY ROJAS Divalproex Sodium (Depakote Sprinkle Cap*) 125 mg PO BID ROJAS Enoxaparin Sodium (Lovenox(*)) 40 mg SUBCUT BEDTIME ROJAS Famotidine (Pepcid Tab*) 20 mg PO DAILY ROJAS Fluticasone Propionate (Flonase Nasal [place] 50mcg*) 1 spray BOTH NARES DAILY ROJAS Folic Acid (Folvite Tab*) 1 mg PO DAILY ROJAS Furosemide (Lasix Tab*) 20 mg PO DAILY ROJAS Glycerin (Glycerin Adult Supp*) 1 supp [place] DAILY PRN CONSTIPATION Lidocaine (Lidoderm 5% Patch*) 2 patch TRANSDERM DAILY ROJAS Magnesium Hydroxide (Milk Of Magnesia Liq*) 30 ml PO DAILY PRN CONSTIPATION Melatonin (Melatonin) 3 mg PO BEDTIME ROJAS Metoprolol Succinate (Toprol Xl Tab*) 150 mg PO DAILY ROJAS Pantoprazole Sodium (Protonix Tab*) 40 mg PO DAILY ROJAS Potassium Chloride (Klor Con Er Tab*) 20 meq PO DAILY ROJAS Senna (Senokot 8.6 Mg Tab*) 1 tab PO QPM PRN CONSTIPATION Sertraline HCl (Zoloft*) 25 mg PO BID ROJAS Sodium Biphosphate/Sodium Phosphate (Fleet Enema*) 1 bottle [place] DAILY PRN CONSTIPATION Tamsulosin HCl (Flomax Cap*) 0.4 mg PO BEDTIME ROJAS Thiamine HCl (Vitamin B-1 Tab*) 100 mg PO DAILY ROJAS Tramadol HCl (Ultram*) 50 mg PO Q6HR PRN PAIN - MODERATE Trazodone HCl (Desyrel Tab*) 100 mg PO BEDTIME PRN INSOMNIA Vital Signs - 8 hr 11/20/18 11/20/18 11/20/18 07:39 08:00 11:51 Temperature 97.7 F 98 F Pulse Rate 57 68 Respiratory 16 16 18 Rate Blood Pressure 131/77 137/72 (mmHg) O2 Sat by Pulse 100 98 Oximetry Oxygen Devices in Use Now: None Appearance: Elderly male laying in bed, restless and appears in pain, but in NAD Ears/Nose/Mouth/Throat: Mucous Membranes Moist Neck: NL Appearance and Movements; NL JVP, Trachea Midline Respiratory: Symmetrical Chest Expansion and Respiratory Effort, Clear to Auscultation Cardiovascular: NL Sounds; No Murmurs; No JVD, RRR Abdominal: NL Sounds; No Tenderness; No Distention Neurological: - - Oriented to self Lines/Tubes/Other Access: Clean, Dry and Intact Peripheral IV Result Diagrams: 11/19/18 10:55 11/18/18 05:33 Assess/Plan/Problems-Billing Assessment: Mr. 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 - Patient Problems (1) Gangrene of left foot Code(s): I96 - GANGRENE, NOT ELSEWHERE CLASSIFIED Comment: - Left 4th toe - No evidence of cellulitis - MRI today to r/o osteomyelitis (2) Lower extremity edema Code(s): R60.0 - LOCALIZED EDEMA Comment: - With associated wounds, new in the last 2 months - LE US unremarkable except for atherosclerosis - Echo pending - Continue furosemide (3) Strep pharyngitis Code(s): J02.0 - STREPTOCOCCAL PHARYNGITIS Comment: - Recent outbreak at [facility] with positive swab in hospital - Continue amoxicillin (4) Anemia Code(s): D64.9 - ANEMIA, UNSPECIFIED Comment: - Stable - Suspect anemia of chronic disease (5) History of CVA with residual deficit Code(s): I69.30 - UNSPECIFIED SEQUELAE OF CEREBRAL INFARCTION Comment: - Baseline residual right sided hemiparesis - Reportedly with 100% bilat carotid stenosis - Continue aspirin, Plavix (6) Hypertension Code(s): I10 - ESSENTIAL (PRIMARY) HYPERTENSION Comment: - Normotensive, SBP 110-130s - Continue metoprolol (7) Hyperlipidemia Code(s): E78.5 - HYPERLIPIDEMIA, UNSPECIFIED Comment: - Continue atorvastatin (8) GERD (gastroesophageal reflux disease) Code(s): K21.9 - GASTRO-ESOPHAGEAL REFLUX DISEASE WITHOUT ESOPHAGITIS Comment : - Continue pantoprazole (9) DVT prophylaxis Code(s): Z29.9 - ENCOUNTER FOR PROPHYLACTIC MEASURES, UNSPECIFIED Comment: - Lovenox (10) DNR (do not resuscitate) Comment: Status and Disposition: Inpatient, awaiting MRI. Anticipate d/c back to [facility] when medically stable. Attending: Franklin Noriega
[2018-11-20] MEDS: traMADol TAB* 50 MG PO PRN (15:07)
--- NOTE | 2018-11-20 15:13 | ECHO ---
*[facility]* [place] [address] Fax #: [phone] Transthoracic Echocardiogram Patient: Alex Fuentes : 1955 Study Date: 11/20/2018 Age: 62 Gender: M HR: 64 bpm Height: 68 in /172.7 cm BSA: 2.11 m^2 Weight: 215.6 lb /98 kg BMI: 32.8 kg/m^2 *Oven Laborer: * Diann Carlson [facility] *Referring Physician: * Jennifer Caraballo *Reading Physician: * Red Varma MD Indications: Edema. History: Prior cerebrovascular accident,former smoker. Risk factors: Hypertension. Dyslipidemia. Conclusions Summary: - Left ventricle: Systolic function is normal. The estimated ejection fraction is 55-60%. Wall motion is normal; there are no regional wall motion abnormalities. - Right ventricle: Systolic function is normal. - Mitral valve: There is mild regurgitation. - Tricuspid valve: There is no evidence of stenosis. There is trace to mild regurgitation. - Pericardium, extracardiac: There is no pericardial effusion. - Pulmonary arteries: Systolic pressure can not be accurately estimated. - Study data: No prior study is available for comparison. Study data: Transthoracic echocardiogram. Procedure: Transthoracic echocardiography was performed. Image quality was fair. The study was technically limited due to restricted patient mobility. Complete 2D, spectral Doppler, and color flow Doppler. Patient status: Inpatient. Patient room number: 405. No prior study is available for comparison. Rhythm: Normal sinus rhythm. Findings Left ventricle: The cavity size is normal. Wall thickness is normal. Systolic function is normal. The estimated ejection fraction is 55-60%. Wall motion is normal; there are no regional wall motion abnormalities. Doppler parameters are consistent with abnormal left ventricular relaxation (grade 1 diastolic dysfunction). Right ventricle: Well visualized. The cavity size is normal. Wall thickness is normal. Systolic function is normal. Ventricular septum: Well visualized. Left atrium: Well visualized. The atrium is normal in size. Right atrium: Well visualized. The atrium is normal in size. Atrial septum: Well visualized. Mitral valve: Well visualized. The leaflets are mildly thickened. No echocardiographic evidence for prolapse. There is no evidence of stenosis. There is mild regurgitation. Aortic valve: Well visualized. The valve is trileaflet. The leaflets are normal thickness. There is no evidence of stenosis. There is no significant regurgitation. Tricuspid valve: Well visualized. The leaflets are normal thickness. There is no evidence of stenosis. There is trace to mild regurgitation. Pulmonic valve: Not well visualized. Aorta: The aorta is well visualized and normal size. The aortic root appears normal. The aortic arch appears normal. Pericardium: There is no pericardial effusion. No evidence of pleural fluid accumulation. Pulmonary arteries: Not well visualized. Systolic pressure can not be accurately estimated. Systemic veins: Well visualized. Inferior vena cava: There is (>= 50%) respiratory change in the IVC dimension. Pulmonary veins: Visualization of the pulmonary venous anatomy is incomplete, but a significant abnormality is unlikely. Measurements Left ventricle Value Ref Right atrium Value Ref ELOISE, LAX (L) 3.7 cm 4.2 - SI dim, ES 5.2 cm 3.4 - 5.3 5.8 ML dim, ES, A4C (L) 2.1 cm 2.6 - 4.4 ESD, LAX 2.8 cm 2.5 - SI dim, ES, A4C 5.3 cm 3.4 - 5.3 4.0 SI dim/bsa, ES, A4C 2.5 cm/m^2 1.8 - 3.0 FS, LAX 25 % 25 - 43 Estimated RAP 3 mm Hg --------- PW, ED, LAX (H) 1.1 cm 0.6 - 1.0 Aortic valve Value Ref FS 25 % 25 - 43 Peak v, S 1.25 m/sec --------- Mid-wall FS 11 % -------- VTI, S 24.3 cm --------- PW, ED (H) 1.1 cm 0.6 - Mean grad, S 2.0 mm Hg --------- 1.0 Peak grad, S 6.0 mm Hg --------- PW/ID, ED 0.31 -------- LVOT/AV, VTI ratio 0.84 --------- E', lat chidi, TDI (L) 6.7 cm/sec >=10.0 ELIAS, VTI 3.19 cm^2 - -------- E/e', lat chidi, TDI 10 -------- ELIAS, Vmax 2.84 cm^2 ---- ----- E', med chdii, TDI (L) 5.5 cm/sec >=7.0 E/e', med chidi, TDI 12 -------- Mitral valve Value Ref E', avg, TDI 6.1 cm/sec -------- Peak E 0.66 m/sec ---- ----- E/e', avg, TDI 11 <=14 Peak A 0.81 m/sec - -------- Decel time 348 ms --------- LVOT Value Ref Peak E/A ratio 0.8 --------- Diam, S 2.20 cm -------- Area 3.8 cm^2 -------- Aortic root Value Ref Peak autumn, S 0.93 m/sec -------- Root diam 3.7 cm <4.2 VTI, S 20.4 cm -------- Mean grad, S 2 mm Hg -------- Aortic arch Value Ref SV 78 ml -------- Arch diam 2.7 cm --------- SV/bsa 37 ml/m^2 -------- Decending aorta Value Ref Ventricular septum Value Ref Theresa peak autumn 0.42 m/sec --------- IVS, ED 0.9 cm 0.6 - 1.0 Inferior vena cava Value Ref Diam 2.5 cm --------- Right ventricle Value Ref ELOISE, LAX 3.1 cm -------- ELOISE minor ax, A4C 3.0 cm 1.9 - mid 3.5 Left atrium Value Ref ML dim, A4C 4.4 cm -------- SI dim, A4C 5.5 cm -------- Vol/bsa, ES, 1-p 35 ml/m^2 12 - 37 A4C Vol/bsa, ES, A/L 33 ml/m^2 16 - 34 Legend: (L) and (H) shannan values outside specified reference range. Prepared and electronically signed by Red Varma MD 11/20/2018 13:47
[2018-11-20] MEDS ORDERED: LORazepam INJ* 2 MG/ML 1 ML VIAL IV PUSH ONE ×2 (16:09→20:05)
[2018-11-20] MEDS ORDERED: Lorazepam PYXIS KEY PRN ×2 (16:09→20:05)
[2018-11-20] MEDS: HYDROcodone/ACETAMIN 5-325 MG* 1 TAB PO PRN ×2 (16:36→22:55)
[2018-11-20] MEDS: Tamsulosin CAP* 0.4 MG PO SCH (22:54)
[2018-11-20] MEDS: Melatonin 3 MG TAB PO SCH (22:54)
[2018-11-20] MEDS: Lidocaine Patch REMOVE* 1 NOTE MISC PATCH OFF SCH (22:56)
[2018-11-20] MEDS: Enoxaparin(*) 40 MG/0.4 ML SYR SUBCUT SCH (22:57)
[2018-11-21] MEDS: HYDROcodone/ACETAMIN 5-325 MG* 1 TAB PO PRN ×3 (06:10→20:50)
[2018-11-21] MEDS ORDERED: LORazepam INJ* 2 MG/ML 1 ML VIAL IV PUSH ONE (07:01)
[2018-11-21] MEDS ORDERED: Lorazepam PYXIS KEY ONE (08:00)
[2018-11-21] MEDS: Lidocaine PATCH 5%* 1 PATCH TRANSDERM SCH (08:09)
[2018-11-21] MEDS: Fluticasone NASAL SPRAY 50MCG* 16 gm SPRAY BTL BOTH NARES SCH (09:24)
[2018-11-21] MEDS: Potassium Chlor TAB* 20 MEQ TAB.ER PO SCH (09:25)
[2018-11-21] MEDS: Atorvastatin* 80 MG TAB PO SCH (09:26)
[2018-11-21] MEDS: Amoxicillin/Clavulanate TAB* 500 MG PO SCH ×2 (09:26→20:52)
[2018-11-21] MEDS: Furosemide TAB* 20 MG PO SCH (09:27)
[2018-11-21] MEDS: Sertraline* 25 MG TAB PO SCH ×2 (09:27→20:51)
[2018-11-21] MEDS: Aspirin EC TAB* 81 MG TAB.EC PO SCH (09:30)
[2018-11-21] MEDS: Famotidine TAB* 20 MG PO SCH (09:31)
[2018-11-21] MEDS: Folic Acid TAB* 1 MG PO SCH (09:31)
[2018-11-21] MEDS: Pantoprazole TAB * 40 MG TAB PO SCH (09:32)
[2018-11-21] MEDS: Thiamine TAB* 100 MG TAB PO SCH (09:32)
[2018-11-21] MEDS: Clopidogrel TAB* 75 MG PO SCH (09:32)
[2018-11-21] MEDS: Divalproex Sprinkle CAP* 125 MG PO SCH ×2 (09:33→23:39)
[2018-11-21] MEDS ORDERED: Haloperidol INJ IV/IM* 5 MG/ML AMP IV SLOW PU ONE (10:42)
[2018-11-21 12:30] LABS: Calcium 8.5 mg/dL (8.6-10.3); Potassium 4.8 mmol/L (3.5-5.0)
[2018-11-21 12:36] LABS: EGFR African American 140.1 (>60); EGFR Non-African American 115.8 (>60)
[2018-11-21] MEDS: amLODIPine TAB* 5 MG PO SCH (12:56)
[2018-11-21] MEDS: Metoprolol Succinate XL TAB* 100 MG PO SCH (13:08)
[2018-11-21] MEDS: ALPRAZolam TAB* 0.25 MG PO PRN ×2 (13:08→20:50)
[2018-11-21] MEDS: LORazepam INJ* 2 MG/ML 1 ML VIAL IV PUSH PRN (14:58)
--- NOTE | 2018-11-21 15:44 | CONSULT ---
Subjective Date of Service: 11/21/18 Interval History: Mr. Fuentes is a 62 yo male with PMH significant for CAD, anxiety, HTN, HLD, GERD, and CVA; who presented to the hospital for worseing left foot wounds with necrosis and gangrene. Presented to the hospital with known wounds to the lower extremities. He has been followed by the wound clinic in [place] for the wounds, it was felt that he needed possible surgical debridement vs amputation and was sent to the hospital for further evaluation. Patient seen and examined at bedside. Family History: Unchanged from Admission Social History: Unchanged from Admission Past Medical History: Unchanged from Admission Review of Systems - Measurements Intake and Output: Intake and Output Last 24 Hours 11/19/18 11/20/18 11/21/18 11/22/18 06:59 06:59 06:59 06:59 Intake Total 2795 840 740 200 Output Total 500 700 Balance 2295 140 740 200 Weight 216 lb 9.6 oz Intake: IV Fluids 995 NS (0.9%) 995 Oral 1800 840 740 200 Output: Urine 500 700 Other: Estimated Void Large Large Large Medium # Bowel Movements 0 0 # Voids 1 4 1 4 - Review of Systems General Comments: Unable to perform ROS, Patient uncooperative. Objective Active Medications: Hydrocodone Bitart/Acetaminophen ([place] 5-325 Tab*) 1 tab PO Q4H PRN Reason: PAIN - SEVERE Alprazolam (Xanax Tab*) 0.25 mg PO BID PRN Reason: AGITATION/ANXIETY Amlodipine Besylate (Norvasc Tab*) 10 mg PO DAILY [facility] Amoxicillin/Clavulanate Potassium (Augmentin Tab*) 500 mg PO BID [facility] Stop: 11/28/18 15:59 Aspirin (Aspirin Ec Tab*) 81 mg PO DAILY [facility] Atorvastatin Calcium (Lipitor*) 80 mg PO DAILY [facility] Cholecalciferol (Vitamin D3 Cap/Tab (Nf)) 1 cap PO WEEKLY [facility] Clopidogrel Bisulfate (Plavix Tab*) 75 mg PO DAILY [facility] Divalproex Sodium (Depakote Sprinkle Cap*) 125 mg PO BID [facility] Enoxaparin Sodium (Lovenox(*)) 40 mg SUBCUT BEDTIME [facility] Famotidine (Pepcid Tab*) 20 mg PO DAILY [facility] Fluticasone Propionate (Flonase Nasal [place] 50mcg*) 1 spray BOTH NARES DAILY [facility] Folic Acid (Folvite Tab*) 1 mg PO DAILY [facility] Furosemide (Lasix Tab*) 20 mg PO DAILY [facility] Glycerin (Glycerin Adult Supp*) 1 supp UT DAILY PRN Reason: CONSTIPATION Lidocaine (Lidoderm 5% Patch*) 2 patch TRANSDERM DAILY [facility] Lorazepam (Ativan Inj*) 1 mg IV PUSH Q6H PRN Reason: ANXIETY Magnesium Hydroxide (Milk Of Magnesia Liq*) 30 ml PO DAILY PRN Reason: CONSTIPATION Melatonin (Melatonin) 3 mg PO BEDTIME [facility] Metoprolol Succinate (Toprol Xl Tab*) 150 mg PO DAILY [facility] Miscellaneous (Ativan Pyxis Tello) 1 ea N/A .ATIVAN IV TELLO PRN Pantoprazole Sodium (Protonix Tab*) 40 mg PO DAILY [facility] Pharmacy Profile Note (Lidocaine Patch Remove*) 2 note PATCH OFF BEDTIME [facility] Potassium Chloride (Klor Con Er Tab*) 20 meq PO DAILY [facility] Senna (Senokot 8.6 Mg Tab*) 1 tab PO QPM PRN Reason: CONSTIPATION Sertraline HCl (Zoloft*) 25 mg PO BID [facility] Sodium Biphosphate/Sodium Phosphate (Fleet Enema*) 1 bottle UT DAILY PRN Reason : CONSTIPATION Tamsulosin HCl (Flomax Cap*) 0.4 mg PO BEDTIME [facility] Thiamine HCl (Vitamin B-1 Tab*) 100 mg PO DAILY [facility] Tramadol HCl (Ultram*) 50 mg PO Q6HR PRN Reason: PAIN - MODERATE Trazodone HCl (Desyrel Tab*) 100 mg PO BEDTIME PRN Reason: INSOMNIA Vital Signs 11/21/18 11/21/18 11/21/18 12:37 12:56 13:08 Temperature 97.8 F Pulse Rate 77 Respiratory 15 15 16 Rate Blood Pressure 128/61 (mmHg) O2 Sat by Pulse 97 Oximetry Oxygen Devices in Use Now: None Appearance: NAD, laying in bed Ears/Nose/Mouth/Throat: Mucous Membranes Moist Respiratory: Symmetrical Chest Expansion and Respiratory Effort Extremities: - - Unable to palpate DP pulses Skin: - - See skin note below Neurological: - - Alert and unable to determine orientation Result Diagrams: 11/25/18 05:36 11/26/18 05:32 Additional Lab and Data: Above labs were pulled into the note when edited prior to signing, below are the labs from the day of consultation. Laboratory Tests 11/17/18 11/19/18 11/21/18 19:14 10:55 12:04 WBC 7.5 Hgb 9.7 L Hct 29 L Plt Count 280 Sodium 128 L Potassium 4.8 Chloride 99 L Carbon Dioxide 21 L BUN 20 Creatinine 0.69 Glucose 93 C-Reactive Protein 16.02 H Total Protein 5.9 L Albumin 3.0 L Microbiology and Other Data: Microbiology 11/17/18 19:49 Aerobic Blood Culture - Preliminary Blood Venous No Growth Day 2 Anaerobic Blood Culture - Preliminary No Growth Day 2 11/17/18 19:49 Aerobic Blood Culture - Preliminary Blood Venous No Growth Day 2 Anaerobic Blood Culture - Preliminary No Growth Day 2 11/18/18 00:00 Nasal Screen MRSA (PCR) - Final Nasal Mrsa Not Detected Diagnostic Imaging: Exam Date: 11/17/18 185 - FOOT LEFT 3+ VWS IMPRESSION: 1. Subcutaneous emphysema about the distal first phalanx with no clear osseous destruction. 2. No fracture. Exam Date: 11/20/18 0000 - VL LOWER EXT VEINS BILATERAL IMPRESSION: 1. NO RIGHT LOWER EXTREMITY DEEP VEIN THROMBOSIS. 2. NO LEFT LOWER EXTREMITY DEEP VEIN THROMBOSIS. 3. ATHEROSCLEROSIS Skin Deviation Note - Skin Deviation Findings Left foot - There is an ulcer to the forefoot at the base of the 5th toe, this measures 2.2 cm x 2.3 cm x 0.1 cm. The wound base is mostly red granulation tissue, with a small amount of eschar. The 5th toe nail is dark discolored. The 4th toe with an areas of dry black eschar, measures 3 cm x 2.5 cm. The 3rd toe with with an area dry black eschar to the dorsal and lateral aspect, measures 2.5 cm x 1.5 cm. The 2nd toe nail with dark discoloration at the base of the nail. The 1st toe appears to be missing the top layer of nail, purulent drainage was able to be expressed from this area. No other draiange. Surrounding skin is intact, but dry. Left heel - There is an area of dry dark eschar, measures 3 cm x 2.3 cm x 0.1 cm. The surrounding skin is intact, no drainage. Right heel - There is a small scabbed area, measures 0.4 cm c 0.4 cm. The surrounding skin is intact. There is no drainage. Right foot - Small scabbed area to the 1st toe, measures 2 cm x 1 cm x 0.1 cm. Scabbed area on the forefoot at the base of the 4th toe, measures 0.5 cm x 0.8 cm x 0.1 cm. The surrounding skin is intact. There is no drainage. Left leg - Scabbed area, measures 1.2 cm x 1 cm x 0.1 cm. The wound base is dark dry eschar. The surrounding skin is intact, and there is no drainage. Left buttock - There is a small open area, measures 0.9 cm x 1 cm x 0.1 cm. The wound base is pink granulation tissue, with a small amount of honey colored slough. There is no drainage. Wound Problem/Plan Assessment: Mr. Fuentes is a 62 yo male with PMH significant for CAD, anxiety, HTN, HLD, GERD, and CVA; who presented to the hospital for worsening left foot wounds with necrosis and gangrene. He is noted to have multiple wounds on bilateral LEs. 1. Chronic non pressure injury ulcers to the left foot and unstageable ulcer to the left heel, suspect secondary to pressure/unstageable. Dry gangrene to the left toes and heel. Recommend applying a dry dressing to protect the area. Keep heel elevated off the bed. Recommend MRI to eval for osteomyelitis. Recommend ABIs to eval circulation as there is no palpable DP. Based on these findings patient will likely need a referral to orthopedics and/or vascular. Purulent drainage was noted from the 1st toe, this was cultured today, no surrounding erythema. 2. Unstageable pressure injury, right heel. Keep the heel elevated off the bed. 3. Stage 2 pressure injury to the left buttocks. Use barrier cream to the buttocks. Frequent turning and repositioning. Consider checking a prealbumin to evaluate nutritional status. 4. Superficial wounds to the legs. Suspect these are secondary venous stasis. Apply lotion to the intact skin. Apply a small amount of ABX ointment to the area, and cover with dry gauze, followed by rolled gauze. 5. Diet. Heart Healthy diet. 6. Code Status. DNR. 7. Disposition. Inpatient, disposition per primary medicine team. Is Patient a Wound Clinic Patient: Yes - [facility] Current Treatment: 1. Buttocks - Barrier cream. 2. LE stasis ulcers - Silver alginate, rolled gauze, and MADHAVI wrap Counseling and/or Coordination of Care Minutes: 50 Points of Discussion: TIME SPENT: Time for this wound consultation was 45 minutes and 35 minutes was spent at bedside assessing, measuring, and photographing the wounds; obtaining a culture. Attending: Sofie Travis
--- NOTE | 2018-11-21 16:02 | PN ---
Subjective Date of Service: 11/21/18 Interval History: Mr. Fuentes is not able to wake up and speak with me today. He has been agitated on and off throughout the day. He has not been able to express any specific complaints, such as pain, that are causing his distress. No concerns from nursing. Family History: Unchanged from Admission Social History: Unchanged from Admission Past Medical History: Unchanged from Admission Objective Active Medications: Hydrocodone Bitart/Acetaminophen ([place] 5-325 Tab*) 1 tab PO Q4H PRN PAIN - SEVERE Alprazolam (Xanax Tab*) 0.25 mg PO BID PRN AGITATION/ANXIETY Amlodipine Besylate (Norvasc Tab*) 10 mg PO DAILY [facility] Amoxicillin/Clavulanate Potassium (Augmentin Tab*) 500 mg PO BID [facility] Aspirin (Aspirin Ec Tab*) 81 mg PO DAILY [facility] Atorvastatin Calcium (Lipitor*) 80 mg PO DAILY [facility] Cholecalciferol (Vitamin D3 Cap/Tab (Nf)) 1 cap PO WEEKLY [facility] Clopidogrel Bisulfate (Plavix Tab*) 75 mg PO DAILY [facility] Divalproex Sodium (Depakote Sprinkle Cap*) 125 mg PO BID [facility] Enoxaparin Sodium (Lovenox(*)) 40 mg SUBCUT BEDTIME [facility] Famotidine (Pepcid Tab*) 20 mg PO DAILY [facility] Fluticasone Propionate (Flonase Nasal [place] 50mcg*) 1 spray BOTH NARES DAILY [facility] Folic Acid (Folvite Tab*) 1 mg PO DAILY [facility] Furosemide (Lasix Tab*) 20 mg PO DAILY [facility] Glycerin (Glycerin Adult Supp*) 1 supp ND DAILY [facility]N CONSTIPATION Lidocaine (Lidoderm 5% Patch*) 2 patch TRANSDERM DAILY [facility] Lorazepam (Ativan Inj*) 1 mg IV PUSH Q6H PRN ANXIETY Magnesium Hydroxide (Milk Of Magnesia Liq*) 30 ml PO DAILY [facility] CONSTIPATION Melatonin (Melatonin) 3 mg PO BEDTIME [facility] Metoprolol Succinate (Toprol Xl Tab*) 150 mg PO DAILY [facility] Pantoprazole Sodium (Protonix Tab*) 40 mg PO DAILY [facility] Potassium Chloride (Klor Con Er Tab*) 20 meq PO DAILY [facility] Senna (Senokot 8.6 Mg Tab*) 1 tab PO QPM PRN CONSTIPATION Sertraline HCl (Zoloft*) 25 mg PO BID [facility] Sodium Biphosphate/Sodium Phosphate (Fleet Enema*) 1 bottle ND DAILY PRN CONSTIPATION Tamsulosin HCl (Flomax Cap*) 0.4 mg PO BEDTIME [facility] Thiamine HCl (Vitamin B-1 Tab*) 100 mg PO DAILY [facility] Tramadol HCl (Ultram*) 50 mg PO Q6HR PRN PAIN - MODERATE Trazodone HCl (Desyrel Tab*) 100 mg PO BEDTIME PRN INSOMNIA Vital Signs - 8 hr 11/21/18 11/21/18 11/21/18 08:00 08:55 09:45 Temperature Pulse Rate Respiratory 16 16 Rate Blood Pressure 105/58 (mmHg) O2 Sat by Pulse Oximetry 11/21/18 11/21/18 11/21/18 12:37 12:56 13:08 Temperature 97.8 F Pulse Rate 77 Respiratory 15 15 16 Rate Blood Pressure 128/61 (mmHg) O2 Sat by Pulse 97 Oximetry Oxygen Devices in Use Now: None Appearance: Elderly male laying in bed in NAD, but restless Neck: NL Appearance and Movements; NL JVP, Trachea Midline Respiratory: Symmetrical Chest Expansion and Respiratory Effort, Clear to Auscultation Cardiovascular: NL Sounds; No Murmurs; No JVD, RRR Abdominal: NL Sounds; No Tenderness; No Distention Extremities: No Edema Skin: - - Multiple wounds to BLE Neurological: - - Alert, restless Lines/Tubes/Other Access: Clean, Dry and Intact Peripheral IV Nutrition: Taking PO's Result Diagrams: 11/19/18 10:55 11/21/18 12:04 Assess/Plan/Problems-Billing Assessment: Mr. 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 - Patient Problems (1) Gangrene of left foot Code(s): I96 - GANGRENE, NOT ELSEWHERE CLASSIFIED Comment: - No evidence of cellulitis, but questionable purulent drainage on great toe - MRI to r/o osteomyelitis; there has been difficulty obtaining an MRI as the patient is not cooperative - Check ABIs - Appreciate Ortho consult - Continue Augmentin (2) Lower extremity edema Code(s): R60.0 - LOCALIZED EDEMA Comment: - With associated wounds, new in the last 2 months - LE US unremarkable except for atherosclerosis - Echo unremarkable - Continue furosemide (3) Strep pharyngitis Code(s): J02.0 - STREPTOCOCCAL PHARYNGITIS Comment: - Recent outbreak at [place] with positive swab in hospital - Continue Augmentin (4) Anemia Code(s): D64.9 - ANEMIA, UNSPECIFIED Comment: - Stable - Suspect anemia of chronic disease (5) History of CVA with residual deficit Code(s): I69.30 - UNSPECIFIED SEQUELAE OF CEREBRAL INFARCTION Comment: - Baseline residual right sided hemiparesis - Reportedly with 100% bilat carotid stenosis - Continue aspirin, Plavix (6) Hypertension Code(s): I10 - ESSENTIAL (PRIMARY) HYPERTENSION Comment: - Normotensive, SBP 90-120s - Continue metoprolol, amlodipine (7) Hyperlipidemia Code(s): E78.5 - HYPERLIPIDEMIA, UNSPECIFIED Comment: - Continue atorvastatin (8) GERD (gastroesophageal reflux disease) Code(s): K21.9 - GASTRO-ESOPHAGEAL REFLUX DISEASE WITHOUT ESOPHAGITIS Comment : - Continue pantoprazole (9) DVT prophylaxis Code(s): Z29.9 - ENCOUNTER FOR PROPHYLACTIC MEASURES, UNSPECIFIED Comment: - Lovenox (10) DNR (do not resuscitate) Comment: Status and Disposition: Inpatient, awaiting MRI and Ortho consult. Anticipate d/c back to [place] when medically stable. Attending: Nayla Geller
[2018-11-21] MEDS ORDERED: Ziprasidone IM INJ* 20 MG/ML VIAL IM ONE (16:22)
[2018-11-21 16:45] LABS: C Reactive Protein 16.02 mg/L (<8.01)
[2018-11-21] MEDS ORDERED: Vancomycin(*) 1,500 MG in NS 0.9% 250 ML* 250 ML IVPB ONE (18:00)
[2018-11-21] MEDS ORDERED: Vancomycin per Pharmacy* NOTE FOLLOW UP SCH (18:00)
[2018-11-21] MEDS ORDERED: NS 0.9% 250 ML* 250 ML ONE (20:24)
[2018-11-21] MEDS: Tamsulosin CAP* 0.4 MG PO SCH (20:51)
[2018-11-21] MEDS: traZODone TAB* 100 MG PO PRN (20:51)
[2018-11-21] MEDS: Melatonin 3 MG TAB PO SCH (20:51)
[2018-11-21] MEDS: Enoxaparin(*) 40 MG/0.4 ML SYR SUBCUT SCH (20:52)
[2018-11-21] MEDS: Lidocaine Patch REMOVE* 1 NOTE MISC PATCH OFF SCH (20:52)
--- NOTE | 2018-11-21 21:07 | CONS ---
CONSULTATION REPORT: DATE OF CONSULT: 11/17/18 ATTENDING ORTHOPEDIC PROVIDER: Dr. Jose Ceron. CHIEF COMPLAINT: Worsening left fourth and fifth toe gangrene. HISTORY OF PRESENT ILLNESS: This is a 62-year-old male who presented to [facility] on 11/17/18 with worsening necrosis of the left fourth and fifth toes with concern for osteomyelitis. He has a past medical history significant for stroke in June 2018 with right hemiplegia and has been living in jail since then, anxiety, hypertension, hyperlipidemia, gastroesophageal reflux disease, ASD. Over the past few months, he has had altered mental status without any obvious source. Per the patient's niece report to the medicine team , he has had swelling over the past 2 months in his lower extremities, which caused wounds and severe pain in his lower extremities, for which he has been following with the [facility]. The [facility] saw him on 11/17/18 and sent him to the emergency room due to concern for need for surgical intervention. Upon admission, the patient was not reported to have any fevers or systemic illness. Today, he is unable to converse with me and history is obtained from chart review. He is quite combative in bed. A hospital aide is at his bedside. PAST MEDICAL HISTORY: Lower extremity edema, chronic lower extremity wounds, right- sided hemiplegia, GERD, hyperlipidemia, hypertension, anxiety, ASD. PAST SURGICAL HISTORY: Unable to obtain. HOME MEDICATIONS: 1. Vitamin D3 50,000 units weekly. 2. Trazodone 100 mg p.o. daily. 3. Ultram 50 mg q.6 hours p.r.n. 4. Thiamine 100 mg p.o. daily. 5. Sertraline 25 mg p.o. b.i.d. 6. Senokot 1 tablet p.o. q.p.m. p.r.n. 7. Zantac 75 mg p.o. b.i.d. 8. Klor-Con 20 mEq oral daily. 9. Omeprazole 40 mg oral daily. 10. Milk of mag 30 mL p.r.n. 11. Metoprolol 150 mg oral daily. 12. Melatonin 5 mg daily at bedtime. 13. Lidocaine 2 patches transdermally daily. 14. Glycerin suppository daily p.r.n. constipation. 15. Lasix 20 mg oral daily. 16. Folic acid 1 mg p.o. daily. 17. Tamsulosin 0.4 mg p.o. at bedtime. 18. Flonase 1 spray both nares daily. 19. Depakote 225 mg p.o. b.i.d. 20. Plavix 75 mg oral daily. 21. Lipitor 80 mg oral daily. 22. Aspirin 81 mg oral daily. 23. Amlodipine 10 mg oral daily. 24. Xanax 0.25 mg p.o. b.i.d. p.r.n. 25. Extra Strength Tylenol t.i.d. p.r.n. ALLERGIES: The patient is allergic to FISH, HYDROCHLOROTHIAZIDE, LATEX, and AMBIEN. FAMILY HISTORY: Mother with history of stroke. SOCIAL HISTORY: Former history of smoking. Sister and niece are his healthcare proxies. Per hospitalists conversation with the patient and niece and sister agrees to antibiotics and any surgical debridement necessary. REVIEW OF SYSTEMS: Unable to obtain. PHYSICAL EXAMINATION: GENERAL: The patient is awake and alert, he does not answer any questions. He is combative. VITAL SIGNS: Temperature 98.4, pulse rate 92, respirations 18, oxygen saturating 95% on room air, blood pressure 137/77. HEENT: Normocephalic, atraumatic. LUNGS: Normal rate and effort of breathing. ABDOMEN: Nondistended. EXTREMITIES: LLE there is a quarter-sized superficial ulcer on the dorsum of the foot laterally, which is dry. He has dry gangrene distally on the fourth toe with dusky dark appearance distally on the second, third and fifth toes. From the base of the great toenail I am able to express purulence. This seems to be quite painful as the patient pulls away. There is no cellulitis. His heel on the left foot is dry and cracked with shallow ulceration. DP palpable. RLE: small dry wounds one on the medial side of his great toe and one dorsally over the head of the fourth metatarsal. ASSESSMENT: Dry gangrene of the toes on the left foot. Right great toe with purulent drainage from underneath the nail bed. PLAN: Recommend MRI and ABIs w toe pressures with vascular consult. Unfortunately MRI has been attempted, patient has been unable to tolerate this even with sedation. In light of this, I have ordered a bone scan. Hospitalist service has consult Dr Rodriguez and ordered ABIs. The patient will be sedated in order to have ABIs this evening and may need to be sedated as well for the bone scan. We will await results and follow the exam. He can be weightbearing as tolerated. Any open lesions should be covered. Anticipate he will require amputation, level of which to be determined by the above studies and clinical course. First and foremost if he has poor blood flow which is anticipated, then optimally vascular intervention will be done first as long as he is not systemically ill. Discussed this case with Dr. Azeem Hair, who agrees with this assessment and plan. SHAYNA AGUILAR [id number]/CPS #: [id number] MTDD
[2018-11-22] MEDS: Vancomycin(*) 1,250 MG in NS 0.9% 250 ML* 250 ML IVPB SCH ×3 (04:52→20:35)
--- NOTE | 2018-11-22 07:17 | PN ---
Progress Note - Progress Note Date of Service: 11/22/18 Note: Pt seen and examined. Aide at bedside. pt confused and rolling around in bed. Complains of no pain. Temp Pulse Resp BP Pulse Ox 97.2 F 63 18 120/70 95 11/22/18 04:00 11/22/18 04:00 11/22/18 04:00 11/22/18 04:00 11/22/18 04:00 NAD. not oriented. appears non toxic. not compliant with exam. foot examined and dressing in place. images reviewed. warm extremity. Laboratory Results - last 24 hr 11/21/18 12:04 Sodium 128 L Potassium 4.8 Chloride 99 L Carbon Dioxide 21 L Anion Gap 8 BUN 20 Creatinine 0.69 Est GFR ( Amer) 140.1 Est GFR (Non-Af Amer) 115.8 BUN/Creatinine Ratio 29.0 H Glucose 93 Calcium 8.5 L C-Reactive Protein 16.02 H A/P 62 yo M with history of stroke and gangrene on lesser toes with wound heel ulcer. NWB, PRAFO boots ABIs today Will likely need BKA as opposed to transmet amp. would recommend consult with Dr Rodriguez if/when ABIs abnormal discussed case with Dr Hair
[2018-11-22] MEDS: traMADol TAB* 50 MG PO PRN ×2 (09:41→20:00)
[2018-11-22] MEDS: Divalproex Sprinkle CAP* 125 MG PO SCH ×2 (09:41→21:52)
[2018-11-22] MEDS: Amoxicillin/Clavulanate TAB* 500 MG PO SCH ×2 (09:41→21:52)
[2018-11-22] MEDS: Metoprolol Succinate XL TAB* 100 MG PO SCH (09:42)
[2018-11-22] MEDS: amLODIPine TAB* 5 MG PO SCH (09:42)
[2018-11-22] MEDS: Sertraline* 25 MG TAB PO SCH ×2 (09:42→21:53)
[2018-11-22] MEDS: Clopidogrel TAB* 75 MG PO SCH (09:42)
[2018-11-22] MEDS: Furosemide TAB* 20 MG PO SCH (09:42)
[2018-11-22] MEDS: Famotidine TAB* 20 MG PO SCH (09:53)
[2018-11-22] MEDS: Aspirin EC TAB* 81 MG TAB.EC PO SCH (09:53)
[2018-11-22] MEDS: Atorvastatin* 80 MG TAB PO SCH (09:53)
[2018-11-22] MEDS: Fluticasone NASAL SPRAY 50MCG* 16 gm SPRAY BTL BOTH NARES SCH (09:53)
[2018-11-22] MEDS: Folic Acid TAB* 1 MG PO SCH (09:54)
[2018-11-22] MEDS: Lidocaine PATCH 5%* 1 PATCH TRANSDERM SCH (09:54)
[2018-11-22] MEDS: Pantoprazole TAB * 40 MG TAB PO SCH (09:54)
[2018-11-22] MEDS: Potassium Chlor TAB* 20 MEQ TAB.ER PO SCH (09:54)
[2018-11-22] MEDS: Thiamine TAB* 100 MG TAB PO SCH (09:54)
--- NOTE | 2018-11-22 13:33 | PN ---
Progress Note - Progress Note Date of Service: 11/22/18 Note: Pt unable to tolerate any testing thus will plan for MRI of foot and ankle under anesthesia. Notified medicine team. Discussed with Dr Hair who can see the patient tomorrow.
[2018-11-22] MEDS: HYDROcodone/ACETAMIN 5-325 MG* 1 TAB PO PRN ×3 (14:36→21:52)
--- NOTE | 2018-11-22 15:55 | PN ---
Subjective Date of Service: 11/22/18 Interval History: Patient seen and examined. Remains confused and unable to participate in ROS. Chart reviewed in detail. 1:[address] Family History: Unchanged from Admission Social History: Unchanged from Admission Past Medical History: Unchanged from Admission Objective Active Medications: Hydrocodone Bitart/Acetaminophen ([place] 5-325 Tab*) 1 tab PO Q4H PRN PRN Reason: PAIN - SEVERE Last Admin: 11/21/18 20:50 Dose: 1 tab Alprazolam (Xanax Tab*) 0.25 mg PO BID PRN PRN Reason: AGITATION/ANXIETY Last Admin: 11/21/18 20:50 Dose: 0.25 mg Amlodipine Besylate (Norvasc Tab*) 10 mg PO DAILY [facility] Last Admin: 11/22/18 09:42 Dose: 10 mg Amoxicillin/Clavulanate Potassium (Augmentin Tab*) 500 mg PO BID [facility] Stop: 11/28/18 15:59 Last Admin: 11/22/18 09:41 Dose: 500 mg Aspirin (Aspirin Ec Tab*) 81 mg PO DAILY [facility] Last Admin: 11/22/18 09:53 Dose: Not Given Atorvastatin Calcium (Lipitor*) 80 mg PO DAILY [facility] Last Admin: 11/22/18 09:53 Dose: Not Given Cholecalciferol (Vitamin D3 Cap/Tab (Nf)) 1 cap PO WEEKLY [facility] Clopidogrel Bisulfate (Plavix Tab*) 75 mg PO DAILY [facility] Last Admin: 11/22/18 09:42 Dose: 75 mg Divalproex Sodium (Depakote Sprinkle Cap*) 125 mg PO BID [facility] Last Admin: 11/22/18 09:41 Dose: 125 mg Enoxaparin Sodium (Lovenox(*)) 40 mg SUBCUT BEDTIME [facility] Last Admin: 11/21/18 20:52 Dose: 40 mg Famotidine (Pepcid Tab*) 20 mg PO DAILY [facility] Last Admin: 11/22/18 09:53 Dose: Not Given Fluticasone Propionate (Flonase Nasal [place] 50mcg*) 1 spray BOTH NARES DAILY [facility] Last Admin: 11/22/18 09:53 Dose: Not Given Folic Acid (Folvite Tab*) 1 mg PO DAILY [facility] Last Admin: 11/22/18 09:54 Dose: Not Given Furosemide (Lasix Tab*) 20 mg PO DAILY [facility] Last Admin: 11/22/18 09:42 Dose: 20 mg Glycerin (Glycerin Adult Supp*) 1 supp [place] DAILY PRN PRN Reason: CONSTIPATION Last Admin: 11/19/18 10:00 Dose: 1 supp Vancomycin HCl 1,250 mg/ (Sodium Chloride) 250 mls @ 166.667 mls/hr IVPB Q8H [facility] Last Admin: 11/22/18 12:57 Dose: 166.667 mls/hr Lidocaine (Lidoderm 5% Patch*) 2 patch TRANSDERM DAILY [facility] Last Admin: 11/22/18 09:54 Dose: Not Given Lorazepam (Ativan Inj*) 1 mg IV PUSH Q6H PRN PRN Reason: ANXIETY Last Admin: 11/21/18 14:58 Dose: 1 mg Magnesium Hydroxide (Milk Of Magnesia Liq*) 30 ml PO DAILY PRN PRN Reason: CONSTIPATION Last Admin: 11/19/18 10:03 Dose: 30 ml Melatonin (Melatonin) 3 mg PO BEDTIME [facility] Last Admin: 11/21/18 20:51 Dose: 3 mg Metoprolol Succinate (Toprol Xl Tab*) 150 mg PO DAILY [facility] Last Admin: 11/22/18 09:42 Dose: 150 mg Miscellaneous (Ativan Pyxis [place]) 1 ea N/A .ATIVAN IV ROBLES PRN PRN Reason: PYXIS ROBLES Pantoprazole Sodium (Protonix Tab*) 40 mg PO DAILY [facility] Last Admin: 11/22/18 09:54 Dose: Not Given Pharmacy Consult (Vancomycin Per Pharmacy*) 1 note FOLLOW UP .VANC PER PHARMACY [facility]; Protocol Pharmacy Profile Note (Lidocaine Patch Remove*) 2 note PATCH OFF BEDTIME [facility] Last Admin: 11/21/18 20:52 Dose: Not Given Pharmacy Profile Note (Vancomycin Trough Check) 1 note FOLLOW UP 1130 ONE Stop: 11/23/18 11:31 Potassium Chloride (Klor Con Er Tab*) 20 meq PO DAILY [facility] Last Admin: 11/22/18 09:54 Dose: Not Given Senna (Senokot 8.6 Mg Tab*) 1 tab PO QPM PRN PRN Reason: CONSTIPATION Last Admin: 11/18/18 12:06 Dose: 1 tab Sertraline HCl (Zoloft*) 25 mg PO BID [facility] Last Admin: 11/22/18 09:42 Dose: 25 mg Sodium Biphosphate/Sodium Phosphate (Fleet Enema*) 1 bottle [place] DAILY PRN PRN Reason: CONSTIPATION Tamsulosin HCl (Flomax Cap*) 0.4 mg PO BEDTIME [facility] Last Admin: 11/21/18 20:51 Dose: 0.4 mg Thiamine HCl (Vitamin B-1 Tab*) 100 mg PO DAILY [facility] Last Admin: 11/22/18 09:54 Dose: Not Given Tramadol HCl (Ultram*) 50 mg PO Q6HR PRN PRN Reason: PAIN - MODERATE Last Admin: 11/22/18 09:41 Dose: 50 mg Trazodone HCl (Desyrel Tab*) 100 mg PO BEDTIME PRN PRN Reason: INSOMNIA Last Admin: 11/21/18 20:51 Dose: 100 mg Vital Signs - 8 hr 11/22/18 11/22/18 11/22/18 08:09 09:41 10:00 Temperature 97.1 F Pulse Rate 65 Respiratory 18 16 16 Rate Blood Pressure 139/73 (mmHg) O2 Sat by Pulse 100 Oximetry 11/22/18 11/22/18 11:25 11:55 Temperature 97.9 F Pulse Rate 60 Respiratory 14 16 Rate Blood Pressure 118/77 (mmHg) O2 Sat by Pulse 96 Oximetry Oxygen Devices in Use Now: None Appearance: alert, restless Ears/Nose/Mouth/Throat: NL Teeth, Lips, Gums Neck: NL Appearance and Movements; NL JVP, Trachea Midline Respiratory: Symmetrical Chest Expansion and Respiratory Effort, Clear to Auscultation Cardiovascular: NL Sounds; No Murmurs; No JVD, RRR Abdominal: NL Sounds; No Tenderness; No Distention Skin: - - left foot/toes wounds dressed with heel cushions in place Neurological: - - profoundly confused Result Diagrams: 11/19/18 10:55 11/21/18 12:04 Microbiology and Other Data: Microbiology 11/17/18 19:49 Aerobic Blood Culture - Preliminary Blood Venous No Growth Day 2 Anaerobic Blood Culture - Preliminary No Growth Day 2 11/17/18 19:49 Aerobic Blood Culture - Preliminary Blood Venous No Growth Day 2 Anaerobic Blood Culture - Preliminary No Growth Day 2 11/18/18 00:00 Nasal Screen MRSA (PCR) - Final Nasal Mrsa Not Detected Diagnostic Imaging: Patient Name: MILADYS MARKHAM Medical Record#: [id number] Ordering Physician: Andrew Catherine MD Acct.#: [id number] : 1955 Age: 62 Sex: M Location: [address] [place] [address] - MEDICAL Exam Date: 11/17/181858 ADM Status: ADM IN Order Information: FOOT LEFT 3+ VWS Accession Number: [id number] CPT: 56507 INDICATION: Left foot injury. TECHNIQUE: 3 views of the left foot were obtained. FINDINGS: 1 of the views is motion degraded. Subcutaneous emphysema is seen about the distal first phalanx. No clear periosteal reaction or erosive osseous changes are seen. The bones are mildly osteopenic. No fracture is identified. A plantar calcaneal enthesophyte is present. There is pes planus morphology of the foot. The joint spaces are grossly maintained. IMPRESSION: 1. Subcutaneous emphysema about the distal first phalanx with no clear osseous destruction. 2. No fracture. R2 Preliminary Imaging Read R2 Assess/Plan/Problems-Billing Assessment: Mr. 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 - Patient Problems (1) Gangrene of left foot Code(s): I96 - GANGRENE, NOT ELSEWHERE CLASSIFIED SNOMED Code(s): 02725479150622919 Comment: - MRSA positive drainage from left great toe - Unable to get nuclear scan or GALE's 2/2 confusion, ortho requesting MRI with anesthesia/sedation to determine extent of amputation that will be required ( transmetatarsal vs BKA) - Continue vancomycin with goal troughs 15-20 (2) History of CVA with residual deficit Code(s): I69.30 - UNSPECIFIED SEQUELAE OF CEREBRAL INFARCTION SNOMED Code(s): 390548192 Comment: - Baseline residual right sided hemiparesis and chronic encephalopathic changes /dementia - Reportedly with 100% bilat carotid stenosis - Continue aspirin, Plavix - Continue depakote sprinkles, xanax, SSRI and ativan PRN - Paradoxical reaction to haldol, do not recommend continuing - Pending records from [place] (3) Hyperlipidemia Code(s): E78.5 - HYPERLIPIDEMIA, UNSPECIFIED SNOMED Code(s): 75153745 Comment: - Continue atorvastatin (4) Hypertension Code(s): I10 - ESSENTIAL (PRIMARY) HYPERTENSION SNOMED Code(s): 56741177 Comment: - Normotensive, SBP 90-120s - Continue metoprolol, amlodipine (5) DVT prophylaxis Code(s): Z29.9 - ENCOUNTER FOR PROPHYLACTIC MEASURES, UNSPECIFIED SNOMED Code( s): 937759114 Comment: - Lovenox (6) DNR (do not resuscitate) Comment: Status and Disposition: Inpatient, awaiting MRI and [facility]. Anticipate d/c back to [facility] when medically stable.
[2018-11-22] MEDS: LORazepam INJ* 2 MG/ML 1 ML VIAL IV PUSH PRN ×2 (15:58→21:45)
[2018-11-22] MEDS: ALPRAZolam TAB* 0.25 MG PO PRN (17:35)
[2018-11-22] MEDS: Enoxaparin(*) 40 MG/0.4 ML SYR SUBCUT SCH (21:53)
[2018-11-22] MEDS: Melatonin 3 MG TAB PO SCH (21:53)
[2018-11-22] MEDS: Lidocaine Patch REMOVE* 1 NOTE MISC PATCH OFF SCH (21:53)
[2018-11-22] MEDS: Tamsulosin CAP* 0.4 MG PO SCH (21:53)
[2018-11-22] MEDS: traZODone TAB* 100 MG PO PRN (21:53)
[2018-11-23] MEDS: Vancomycin(*) 1,250 MG in NS 0.9% 250 ML* 250 ML IVPB SCH ×2 (03:53→12:40)
[2018-11-23] MEDS: LORazepam INJ* 2 MG/ML 1 ML VIAL IV PUSH PRN ×3 (05:28→22:09)
[2018-11-23 06:29] LABS: INR 1.06 (0.82-1.09)
[2018-11-23 07:01] LABS: Anion Gap 9 mmol/L (2-11); BUN/Creatinine Ratio 29.6 (8-20); Blood Urea Nitrogen 21 mg/dL (6-24); CO2 Carbon Dioxide 20 mmol/L (22-32); Calcium 8.7 mg/dL (8.6-10.3); Chloride 100 mmol/L (101-111); EGFR African American 135.6 (>60); EGFR Non-African American 112.1 (>60); Glucose 79 mg/dL (70-100); Sodium 129 mmol/L (135-145)
--- NOTE | 2018-11-23 07:39 | CONSULT ---
Consult Consult: Date of service: 11/23/2018 Reason for consultation: Multifocal lower extremity wounds in a vasculopath. Requesting service: Hospitalist service (Focused) HPI: Mr. Fuentes is a 62-year-old man admitted to the hospital 11/17/2018 for worsening multifocal lower extremity wounds. Acquiring a clinical history from the patient is difficult as he is somewhat nonverbal and inconsistent in his responses to questions. The patient states he does not normally have leg pain. He is unclear as to whether he walks either independently or with assistance. He is unsure how long he has had the leg wounds. PMH: Anemia CVA Hypertension Hyperlipidemia GERD DVT ROS: Negative: Fever, Chills Negative: Erythema Negative: Sore Throat Negative: Chest Pain Positive: Cough. Negative: Shortness Of Breath Negative: Abdominal Pain, Vomiting, Nausea Negative: dysuria, hematuria Positive: Other - Toe pain, gangrene. Negative: Myalgia, Edema Negative: Rash Neurological: Dizziness Physical examination: Selected Entries 11/23/18 03:00 Temperature 97.2 F Temperature Oral Source Pulse Rate 57 Respiratory 18 Rate Blood Pressure 115/68 (mmHg) Blood Pressure 83 Mean O2 Sat by Pulse 98 Oximetry Patient on Room Yes Air The patient is somewhat nonverbal but does occasionally respond to direct questions. The patient is oriented to place only, correctly responding that he is "in the hospital" The lower extremity wounds are dressed with sterile gauze. Heart rate is regular. S1/S2. Lungs are clear to auscultation bilaterally. 2+ pulses are palpated the bilateral radial arteries and brachial arteries. 1+ pulses are palpated at the bilateral common femoral arteries. There is some difficulty extending the hip which limits palpation. Neither the popliteal or pedal pulses can be palpated. Relevant Labs: Laboratory Tests 11/17/18 11/17/18 11/18/18 19:14 19:14 05:33 WBC 9.7 11.1 H RBC Hgb Hct INR (Anticoag Therapy) APTT 38.0 BUN Creatinine Est GFR ( Amer) Est GFR (Non-Af Amer) 11/19/18 11/23/18 11/23/18 10:55 05:58 05:59 WBC 7.5 RBC 3.12 L Hgb 9.7 L Hct 29 L INR (Anticoag Therapy) 1.06 APTT BUN 21 Creatinine 0.71 Est GFR ( Amer) 135.6 Est GFR (Non-Af Amer) 112.1 Relevant imaging: Patient Name: MILADYS FUENTES Medical Record#: [id number] Ordering Physician: Jennifer Caraballo NP Acct.#: [id number] : 1955 Age: 62 Sex: M Location: [address] [place] [address] Exam Date: 11/20/18 0000 ADM Status: ADM IN Order Information: VL LOWER EXT VEINS BILATERAL Accession Number: [id number] CPT: 41376 HISTORY: LE edema COMPARISONS: None relevant TECHNIQUE: Multiple transverse and longitudinal ultrasound images were obtained of the bilateral lower extremities from the level of the common femoral vein inferiorly through to the infrapopliteal veins using grayscale, color Doppler, and spectral Doppler imaging with and without compression and with augmentation. FINDINGS: VEINS: The venous system of the bilateral lower extremities is compressible throughout its course, with normal flow on color Doppler imaging and normal response to augmentation on spectral Doppler imaging. SOFT TISSUES: Unremarkable. OTHER FINDINGS: Calcified atheromatous plaque is noted within the arterial system IMPRESSION: 1. NO RIGHT LOWER EXTREMITY DEEP VEIN THROMBOSIS. 2. NO LEFT LOWER EXTREMITY DEEP VEIN THROMBOSIS. 3. ATHEROSCLEROSIS <Electronically signed by Jeferson Francois MD in [facility]> 11/20/18 111 Dictated By: Jeferson Francois MD Dictated Date/Time: 11/20/181115 Transcribed Date/Time: 11/20/181115 Summary: 62-year-old man with chronic lower extremity wounds that appears to have diminished flow in the bilateral common femoral arteries and nonpalpable arterial pulses in the legs. Plan/recommendations: 1. CT angiography of the aorta with runoff. This may require sedation. I specifically asked the patient if he felt he could lay still for "a couple of minutes" for the duration of image acquisition and the patient agreed he would be able to. 2. Following review of CTA with runoff, I will determine the need and feasibility of endovascular revascularization to support lower extremity wound healing.
[2018-11-23 08:44] LABS: ABS Eosinophils 0.3 10^3/ul (0-0.6); ABS Monocytes 0.4 10^3/ul (0-0.8); ABS Neutrophils 2.7 10^3/ul (1.5-7.7); Eosinophil % 6.5 %; Hematocrit 32 % (42-52); Hemoglobin 10.2 g/dL (14.0-18.0); Mean Corpuscular HGB Conc 32 g/dL (31-36); Mean Corpuscular Hemoglobin 30 pg (27-31); Mean Corpuscular Volume 95 fL (80-94); Mean Platelet Volume 6.4 fL (7.4-10.4); Nucleated Red Blood Cells % 0.2; Platelet Count 257 10^3/uL (150-450); Red Cell Distribution Width 17 % (10-15); White Blood Count 4.4 10^3/uL (3.5-10.8)
[2018-11-23] MEDS ORDERED: Vancomycin Trough Check NOTE FOLLOW UP ONE (11:30)
[2018-11-23] MEDS ORDERED: Iohexol 350* (CONTRAST) 500 ML MDV IV ONE (11:35)
[2018-11-23] MEDS: ALPRAZolam TAB* 0.25 MG PO PRN (12:37)
[2018-11-23] MEDS: HYDROcodone/ACETAMIN 5-325 MG* 1 TAB PO PRN ×2 (12:38→17:11)
[2018-11-23] MEDS: Metoprolol Succinate XL TAB* 100 MG PO SCH ×2 (12:40→19:40)
[2018-11-23] MEDS: Sertraline* 25 MG TAB PO SCH ×3 (12:41→19:46)
[2018-11-23] MEDS: Clopidogrel TAB* 75 MG PO SCH ×2 (12:41→19:41)
[2018-11-23] MEDS: Amoxicillin/Clavulanate TAB* 500 MG PO SCH ×3 (12:41→19:49)
[2018-11-23] MEDS: Atorvastatin* 80 MG TAB PO SCH (12:41)
[2018-11-23] MEDS: Furosemide TAB* 20 MG PO SCH ×2 (12:42→19:41)
[2018-11-23] MEDS: amLODIPine TAB* 5 MG PO SCH (13:31)
[2018-11-23] MEDS: Fluticasone NASAL SPRAY 50MCG* 16 gm SPRAY BTL BOTH NARES SCH (13:31)
[2018-11-23] MEDS: Divalproex Sprinkle CAP* 125 MG PO SCH ×2 (13:31→19:47)
[2018-11-23] MEDS: Aspirin EC TAB* 81 MG TAB.EC PO SCH (13:31)
[2018-11-23] MEDS: Famotidine TAB* 20 MG PO SCH (13:31)
[2018-11-23] MEDS: Folic Acid TAB* 1 MG PO SCH (13:31)
[2018-11-23] MEDS: Pantoprazole TAB * 40 MG TAB PO SCH (13:32)
[2018-11-23] MEDS: Lidocaine PATCH 5%* 1 PATCH TRANSDERM SCH (13:32)
[2018-11-23] MEDS: Potassium Chlor TAB* 20 MEQ TAB.ER PO SCH (13:32)
[2018-11-23] MEDS: Thiamine TAB* 100 MG TAB PO SCH (13:32)
--- NOTE | 2018-11-23 16:30 | PN ---
Progress Note - Progress Note Date of Service: 11/23/18 Note: I saw Alex. He does not partake in the examination. I do not feel any pulses in his left foot. His fourth toe . He has dry gangrene. The other toes are dusky. There is mild purulence expressed from the great toe. He does also have a posterior heel ulcer, which appears superficial. No surrounding erythema. No drainage. Given his mental status, he has not been able to get imaging of the foot. It is unclear the extent of the infection. I do think his main problem is vascular. He is set to have a CTA tomorrow, and then hopefully we can have a better idea of what is needed from a vascular standpoint. Ortho will continue to follow along. Azeem Hair MD
--- NOTE | 2018-11-23 17:19 | PN ---
Subjective Date of Service: 11/23/18 Interval History: Patient asleep, had periods of agitation and restless behavior earlier this AM, now appears comfortable. Arousable, will not participate in exam. Family History: Unchanged from Admission Social History: Unchanged from Admission Past Medical History: Unchanged from Admission Objective Active Medications: Hydrocodone Bitart/Acetaminophen ([place] 5-325 Tab*) 1 tab PO Q4H PRN PRN Reason: PAIN - SEVERE Last Admin: 11/23/18 17:11 Dose: 1 tab Alprazolam (Xanax Tab*) 0.25 mg PO BID PRN PRN Reason: AGITATION/ANXIETY Last Admin: 11/23/18 12:37 Dose: 0.25 mg Amlodipine Besylate (Norvasc Tab*) 10 mg PO DAILY [facility] Last Admin: 11/23/18 13:31 Dose: Not Given Amoxicillin/Clavulanate Potassium (Augmentin Tab*) 500 mg PO BID [facility] Stop: 11/28/18 15:59 Last Admin: 11/23/18 12:41 Dose: 500 mg Aspirin (Aspirin Ec Tab*) 81 mg PO DAILY [facility] Last Admin: 11/23/18 13:31 Dose: Not Given Atorvastatin Calcium (Lipitor*) 80 mg PO DAILY [facility] Last Admin: 11/23/18 12:41 Dose: Not Given Cholecalciferol (Vitamin D3 Cap/Tab (Nf)) 1 cap PO WEEKLY [facility] Clopidogrel Bisulfate (Plavix Tab*) 75 mg PO DAILY [facility] Last Admin: 11/23/18 12:41 Dose: 75 mg Divalproex Sodium (Depakote Sprinkle Cap*) 125 mg PO BID [facility] Last Admin: 11/23/18 13:31 Dose: Not Given Enoxaparin Sodium (Lovenox(*)) 40 mg SUBCUT BEDTIME [facility] Last Admin: 11/22/18 21:53 Dose: 40 mg Famotidine (Pepcid Tab*) 20 mg PO DAILY [facility] Last Admin: 11/23/18 13:31 Dose: Not Given Fluticasone Propionate (Flonase Nasal [place] 50mcg*) 1 spray BOTH NARES DAILY [facility] Last Admin: 11/23/18 13:31 Dose: Not Given Folic Acid (Folvite Tab*) 1 mg PO DAILY [facility] Last Admin: 11/23/18 13:31 Dose: Not Given Furosemide (Lasix Tab*) 20 mg PO DAILY [facility] Last Admin: 11/23/18 12:42 Dose: 20 mg Glycerin (Glycerin Adult Supp*) 1 supp [place] DAILY PRN PRN Reason: CONSTIPATION Last Admin: 11/19/18 10:00 Dose: 1 supp Vancomycin HCl 1,000 mg/ (Sodium Chloride) 250 mls @ 166.667 mls/hr IVPB Q8H [facility] Lidocaine (Lidoderm 5% Patch*) 2 patch TRANSDERM DAILY [facility] Last Admin: 11/23/18 13:32 Dose: Not Given Lorazepam (Ativan Inj*) 1 mg IV PUSH Q6H PRN PRN Reason: ANXIETY Last Admin: 11/23/18 14:48 Dose: 1 mg Magnesium Hydroxide (Milk Of Magnesia Liq*) 30 ml PO DAILY PRN PRN Reason: CONSTIPATION Last Admin: 11/19/18 10:03 Dose: 30 ml Melatonin (Melatonin) 3 mg PO BEDTIME [facility] Last Admin: 11/22/18 21:53 Dose: 3 mg Metoprolol Succinate (Toprol Xl Tab*) 150 mg PO DAILY [facility] Last Admin: 11/23/18 12:40 Dose: 150 mg Miscellaneous (Ativan Pyxis [place]) 1 ea N/A .ATIVAN IV ROBLES PRN PRN Reason: PYXIS ROBLES Pantoprazole Sodium (Protonix Tab*) 40 mg PO DAILY [facility] Last Admin: 11/23/18 13:32 Dose: Not Given Pharmacy Consult (Vancomycin Per Pharmacy*) 1 note FOLLOW UP .VANC PER PHARMACY [facility]; Protocol Pharmacy Profile Note (Lidocaine Patch Remove*) 2 note PATCH OFF BEDTIME [facility] Last Admin: 11/22/18 21:53 Dose: Not Given Pharmacy Profile Note (Vancomycin Trough Check) 1 note FOLLOW UP ONCE ONE Stop: 11/25/18 08:31 Potassium Chloride (Klor Con Er Tab*) 20 meq PO DAILY [facility] Last Admin: 11/23/18 13:32 Dose: Not Given Senna (Senokot 8.6 Mg Tab*) 1 tab PO QPM PRN PRN Reason: CONSTIPATION Last Admin: 11/18/18 12:06 Dose: 1 tab Sertraline HCl (Zoloft*) 25 mg PO BID [facility] Last Admin: 11/23/18 12:41 Dose: 25 mg Sodium Biphosphate/Sodium Phosphate (Fleet Enema*) 1 bottle [place] DAILY PRN PRN Reason: CONSTIPATION Tamsulosin HCl (Flomax Cap*) 0.4 mg PO BEDTIME [facility] Last Admin: 11/22/18 21:53 Dose: 0.4 mg Thiamine HCl (Vitamin B-1 Tab*) 100 mg PO DAILY [facility] Last Admin: 11/23/18 13:32 Dose: Not Given Tramadol HCl (Ultram*) 50 mg PO Q6HR PRN PRN Reason: PAIN - MODERATE Last Admin: 11/22/18 20:00 Dose: 50 mg Trazodone HCl (Desyrel Tab*) 100 mg PO BEDTIME PRN PRN Reason: INSOMNIA Last Admin: 11/22/18 21:53 Dose: 100 mg Vital Signs - 8 hr 11/23/18 11/23/18 11/23/18 11:00 11:05 12:37 Temperature 97.5 F Pulse Rate 67 Respiratory 18 16 22 Rate Blood Pressure 123/60 (mmHg) O2 Sat by Pulse Oximetry 11/23/18 11/23/18 11/23/18 12:38 14:48 15:42 Temperature 97.4 F Pulse Rate 61 Respiratory 22 19 14 Rate Blood Pressure 138/77 (mmHg) O2 Sat by Pulse 99 Oximetry 11/23/18 11/23/18 15:49 17:11 Temperature Pulse Rate Respiratory 16 19 Rate Blood Pressure (mmHg) O2 Sat by Pulse Oximetry Oxygen Devices in Use Now: None Appearance: alert, confused Eyes: PERRLA Ears/Nose/Mouth/Throat: Mucous Membranes Moist Neck: NL Appearance and Movements; NL JVP Respiratory: Symmetrical Chest Expansion and Respiratory Effort, Clear to Auscultation Cardiovascular: NL Sounds; No Murmurs; No JVD, RRR Extremities: No Edema Skin: - - left toes dressed, cool left foot/extremity Neurological: - - confused with periods of agitation Nutrition: Taking PO's Result Diagrams: 11/23/18 08:09 11/23/18 08:09 Microbiology and Other Data: Microbiology 11/17/18 19:49 Aerobic Blood Culture - Preliminary Blood Venous No Growth Day 2 Anaerobic Blood Culture - Preliminary No Growth Day 2 11/17/18 19:49 Aerobic Blood Culture - Preliminary Blood Venous No Growth Day 2 Anaerobic Blood Culture - Preliminary No Growth Day 2 11/18/18 00:00 Nasal Screen MRSA (PCR) - Final Nasal Mrsa Not Detected Diagnostic Imaging: Patient Name: MILADYS MARKHAM Medical Record#: [id number] Ordering Physician: Andrew Catherine MD Acct.#: [id number] : 1955 Age: 62 Sex: M Location: [address] [place] [address] - MEDICAL Exam Date: 11/17/181858 ADM Status: ADM IN Order Information: FOOT LEFT 3+ VWS Accession Number: [id number] CPT: 08933 INDICATION: Left foot injury. TECHNIQUE: 3 views of the left foot were obtained. FINDINGS: 1 of the views is motion degraded. Subcutaneous emphysema is seen about the distal first phalanx. No clear periosteal reaction or erosive osseous changes are seen. The bones are mildly osteopenic. No fracture is identified. A plantar calcaneal enthesophyte is present. There is pes planus morphology of the foot. The joint spaces are grossly maintained. IMPRESSION: 1. Subcutaneous emphysema about the distal first phalanx with no clear osseous destruction. 2. No fracture. R2 Preliminary Imaging Read R2 Assess/Plan/Problems-Billing Assessment: Mr. 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 - Patient Problems (1) Gangrene of left foot Code(s): I96 - GANGRENE, NOT ELSEWHERE CLASSIFIED SNOMED Code(s): 81150742878583886 Comment: - MRSA positive drainage from left great toe - Continue vancomycin with goal troughs 15-20 - Drs. Rodriguez and Laxmi consulting - Plan for CTA to eval vasculature and MRI to eval infection to determine surgical course. Will need anesthesia for diagnostics which has been arranged for 0845 tomorrow morning - Lengthy discussion with patient's neice/POA about issues. She will provide consents as needed (2) Acute delirium Code(s): R41.0 - DISORIENTATION, UNSPECIFIED SNOMED Code(s): 6416124 Comment: - Multifactorial, likely combination of CVA with residual deficits, hospitalization and infection - Per niece, patient has had periods of delerium since his stroke in June, but this is the worst she's seen. Discussed possibility of new stroke, given carotid occlusions, however, patient cannot tolerate sitting for long periods and cannot follow commands for MRI, and patient is already on DAPT and statin and optimized medically - Urgent need would be to continue to treat infection, prevent bacteremia/ sepsis and to identify surgical plan while continuing symptom management (3) History of CVA with residual deficit Code(s): I69.30 - UNSPECIFIED SEQUELAE OF CEREBRAL INFARCTION SNOMED Code(s): 110511785 Comment: - Baseline residual right sided hemiparesis and chronic encephalopathic changes /dementia - Reportedly with 100% bilat carotid stenosis - Continue aspirin, Plavix - Continue depakote sprinkles, xanax, SSRI and ativan PRN - Paradoxical reaction to haldol, do not recommend continuing - Pending records from [place] (4) Hyperlipidemia Code(s): E78.5 - HYPERLIPIDEMIA, UNSPECIFIED SNOMED Code(s): 39995978 Comment: - Continue atorvastatin (5) Hypertension Code(s): I10 - ESSENTIAL (PRIMARY) HYPERTENSION SNOMED Code(s): 02233154 Comment: - Normotensive, SBP 90-120s - Continue metoprolol, amlodipine (6) DVT prophylaxis Code(s): Z29.9 - ENCOUNTER FOR PROPHYLACTIC MEASURES, UNSPECIFIED SNOMED Code( s): 533232490 Comment: - Lovenox (7) DNR (do not resuscitate) Comment: Status and Disposition: Inpatient, awaiting CTA and MRI under sedation. Dispo TBD.
[2018-11-23] MEDS: Lidocaine Patch REMOVE* 1 NOTE MISC PATCH OFF SCH (19:33)
[2018-11-23] MEDS: traMADol TAB* 50 MG PO PRN (19:46)
[2018-11-23] MEDS: Melatonin 3 MG TAB PO SCH (19:48)
[2018-11-23] MEDS: traZODone TAB* 100 MG PO PRN (19:48)
[2018-11-23] MEDS: Tamsulosin CAP* 0.4 MG PO SCH (19:48)
[2018-11-23] MEDS: Enoxaparin(*) 40 MG/0.4 ML SYR SUBCUT SCH (19:49)
[2018-11-24] MEDS: Vancomycin(*) 1,000 MG in NS 0.9% 250 ML* 250 ML IVPB SCH ×3 (00:42→17:23)
[2018-11-24] MEDS: HYDROcodone/ACETAMIN 5-325 MG* 1 TAB PO PRN (04:43)
[2018-11-24] MEDS: LORazepam INJ* 2 MG/ML 1 ML VIAL IV PUSH PRN (04:43)
[2018-11-24] MEDS ORDERED: CHOLECALCIFEROL 50000 UNIT PO SCH (09:00)
[2018-11-24] MEDS ORDERED: Naloxone* 0.4 MG/ML 1 ML VIAL IV PRN (09:22)
[2018-11-24] MEDS ORDERED: Ondansetron INJ* 2 MG/ML VIAL IV PRN (09:22)
[2018-11-24] MEDS ORDERED: Acetaminophen TAB* 325 MG PO PRN (09:22)
[2018-11-24] MEDS ORDERED: Iodixanol* (CONTRAST) 320 MG/ML 100 ML SDV IV ONE (10:08)
[2018-11-24] MEDS ORDERED: Lidocaine 2% PF * 5 ML VIAL ONE (10:15)
[2018-11-24] MEDS ORDERED: Propofol* 10 MG/ML 20 ML BTL ONE (10:15)
[2018-11-24] MEDS ORDERED: Atorvastatin* 80 MG TAB PO SCH (14:30)
[2018-11-24] MEDS ORDERED: Pantoprazole TAB * 40 MG TAB PO SCH (14:30)
[2018-11-24] MEDS ORDERED: Aspirin EC TAB* 81 MG TAB.EC PO SCH (14:30)
[2018-11-24] MEDS ORDERED: amLODIPine TAB* 5 MG PO SCH (14:30)
[2018-11-24] MEDS ORDERED: Clopidogrel TAB* 75 MG PO SCH (14:30)
[2018-11-24] MEDS ORDERED: Famotidine TAB* 20 MG PO SCH (14:30)
[2018-11-24] MEDS ORDERED: Thiamine TAB* 100 MG TAB PO SCH (14:30)
[2018-11-24] MEDS ORDERED: Folic Acid TAB* 1 MG PO SCH (14:30)
[2018-11-24] MEDS ORDERED: Metoprolol Succinate XL TAB* 50 MG PO SCH (14:30)
[2018-11-24] MEDS ORDERED: Divalproex Sprinkle CAP* 125 MG PO SCH (14:30)
[2018-11-24] MEDS: Divalproex Sprinkle CAP* 125 MG PO SCH ×2 (14:42→22:41)
[2018-11-24] MEDS: Aspirin EC TAB* 81 MG TAB.EC PO SCH (14:42)
[2018-11-24] MEDS: Clopidogrel TAB* 75 MG PO SCH (14:42)
[2018-11-24] MEDS: amLODIPine TAB* 5 MG PO SCH (14:43)
[2018-11-24] MEDS: Metoprolol Succinate XL TAB* 100 MG PO SCH (14:44)
[2018-11-24] MEDS: Famotidine TAB* 20 MG PO SCH (14:45)
[2018-11-24] MEDS: Furosemide TAB* 20 MG PO SCH ×2 (14:45→15:40)
[2018-11-24] MEDS: Pantoprazole TAB * 40 MG TAB PO SCH (14:45)
[2018-11-24] MEDS: Atorvastatin* 80 MG TAB PO SCH (14:45)
[2018-11-24] MEDS: Potassium Chlor TAB* 20 MEQ TAB.ER PO SCH ×2 (14:45→15:42)
[2018-11-24] MEDS: Sertraline* 25 MG TAB PO SCH ×3 (14:46→22:42)
[2018-11-24] MEDS: Folic Acid TAB* 1 MG PO SCH (14:46)
[2018-11-24] MEDS: Thiamine TAB* 100 MG TAB PO SCH (14:46)
[2018-11-24] MEDS: Amoxicillin/Clavulanate TAB* 500 MG PO SCH ×2 (14:53→22:41)
[2018-11-24] MEDS: Lidocaine PATCH 5%* 1 PATCH TRANSDERM SCH (14:57)
[2018-11-24] MEDS: Fluticasone NASAL SPRAY 50MCG* 16 gm SPRAY BTL BOTH NARES SCH (14:57)
--- NOTE | 2018-11-24 17:17 | PN ---
Subjective Date of Service: 11/24/18 Interval History: Patient returned from MRI and CTA, post-anesthesia state and remains drowsy, non -participatory but no distress. Niece at bedside. POC discussed. Family History: Unchanged from Admission Social History: Unchanged from Admission Past Medical History: Unchanged from Admission Objective Active Medications: Hydrocodone Bitart/Acetaminophen ([place] 5-325 Tab*) 1 tab PO Q4H PRN PRN Reason: PAIN - SEVERE Last Admin: 11/24/18 04:43 Dose: 1 tab Alprazolam (Xanax Tab*) 0.25 mg PO BID PRN PRN Reason: AGITATION/ANXIETY Last Admin: 11/23/18 12:37 Dose: 0.25 mg Amlodipine Besylate (Norvasc Tab*) 10 mg PO DAILY [facility] Amoxicillin/Clavulanate Potassium (Augmentin Tab*) 500 mg PO BID [facility] Stop: 11/28/18 15:59 Last Admin: 11/24/18 14:53 Dose: 500 mg Aspirin (Aspirin Ec Tab*) 81 mg PO DAILY [facility] Atorvastatin Calcium (Lipitor*) 80 mg PO DAILY [facility] Clopidogrel Bisulfate (Plavix Tab*) 75 mg PO DAILY [facility] Divalproex Sodium (Depakote Sprinkle Cap*) 125 mg PO BID [facility] Enoxaparin Sodium (Lovenox(*)) 40 mg SUBCUT BEDTIME [facility] Last Admin: 11/23/18 19:49 Dose: 40 mg Famotidine (Pepcid Tab*) 20 mg PO DAILY [facility] Fluticasone Propionate (Flonase Nasal [place] 50mcg*) 1 spray BOTH NARES DAILY [facility] Last Admin: 11/24/18 14:57 Dose: 1 spray Folic Acid (Folvite Tab*) 1 mg PO DAILY [facility] Furosemide (Lasix Tab*) 20 mg PO DAILY@0900 [facility] Last Admin: 11/24/18 15:40 Dose: Not Given Glycerin (Glycerin Adult Supp*) 1 supp [place] DAILY PRN PRN Reason: CONSTIPATION Last Admin: 11/19/18 10:00 Dose: 1 supp Vancomycin HCl 1,000 mg/ (Sodium Chloride) 250 mls @ 166.667 mls/hr IVPB Q8H [facility] Last Admin: 11/24/18 10:57 Dose: 166.667 mls/hr Lidocaine (Lidoderm 5% Patch*) 2 patch TRANSDERM DAILY [facility] Last Admin: 11/24/18 14:57 Dose: 2 patch Lorazepam (Ativan Inj*) 1 mg IV PUSH Q6H PRN PRN Reason: ANXIETY Last Admin: 11/24/18 04:43 Dose: 1 mg Magnesium Hydroxide (Milk Of Magnesia Liq*) 30 ml PO DAILY PRN PRN Reason: CONSTIPATION Last Admin: 11/19/18 10:03 Dose: 30 ml Melatonin (Melatonin) 3 mg PO BEDTIME [facility] Last Admin: 11/23/18 19:48 Dose: 3 mg Metoprolol Succinate (Toprol Xl Tab*) 150 mg PO DAILY [facility] Miscellaneous (Ativan Pyxis [place]) 1 ea N/A .ATIVAN IV ROBLES PRN PRN Reason: PYXIS ROBLES Pantoprazole Sodium (Protonix Tab*) 40 mg PO DAILY [facility] Pharmacy Consult (Vancomycin Per Pharmacy*) 1 note FOLLOW UP .VANC PER PHARMACY [facility]; Protocol Pharmacy Profile Note (Lidocaine Patch Remove*) 2 note PATCH OFF BEDTIME [facility] Last Admin: 11/23/18 19:33 Dose: Not Given Pharmacy Profile Note (Vancomycin Trough Check) 1 note FOLLOW UP ONCE ONE Stop: 11/25/18 08:31 Potassium Chloride (Klor Con Er Tab*) 20 meq PO DAILY@0900 [facility] Last Admin: 11/24/18 15:42 Dose: Not Given Senna (Senokot 8.6 Mg Tab*) 1 tab PO QPM PRN PRN Reason: CONSTIPATION Last Admin: 11/18/18 12:06 Dose: 1 tab Sertraline HCl (Zoloft*) 25 mg PO BID@0900,2100 [facility] Last Admin: 11/24/18 15:42 Dose: Not Given Sodium Biphosphate/Sodium Phosphate (Fleet Enema*) 1 bottle [place] DAILY PRN PRN Reason: CONSTIPATION Tamsulosin HCl (Flomax Cap*) 0.4 mg PO BEDTIME [facility] Last Admin: 11/23/18 19:48 Dose: 0.4 mg Thiamine HCl (Vitamin B-1 Tab*) 100 mg PO DAILY [facility] Tramadol HCl (Ultram*) 50 mg PO Q6HR PRN PRN Reason: PAIN - MODERATE Last Admin: 11/23/18 19:46 Dose: 50 mg Trazodone HCl (Desyrel Tab*) 100 mg PO BEDTIME PRN PRN Reason: INSOMNIA Last Admin: 11/23/18 19:48 Dose: 100 mg Vital Signs - 8 hr 11/24/18 11/24/18 11/24/18 10:05 10:07 10:10 Temperature 97.5 F Pulse Rate 71 68 73 Respiratory 10 Rate Blood Pressure 176/107 160/91 168/97 (mmHg) O2 Sat by Pulse 100 99 99 Oximetry 11/24/18 11/24/18 11/24/18 10:15 10:20 11:16 Temperature 96.6 F Pulse Rate 84 60 59 Respiratory 13 7 12 Rate Blood Pressure 168/101 142/70 132/63 (mmHg) O2 Sat by Pulse 100 100 100 Oximetry 11/24/18 11/24/18 12:00 16:00 Temperature 97.5 F 97.2 F Pulse Rate 66 76 Respiratory 20 18 Rate Blood Pressure 136/63 136/80 (mmHg) O2 Sat by Pulse 100 100 Oximetry Oxygen Devices in Use Now: Nasal Cannula Appearance: sleepy, post-anesthesia Eyes: PERRLA Ears/Nose/Mouth/Throat: Mucous Membranes Moist Respiratory: Symmetrical Chest Expansion and Respiratory Effort, Clear to Auscultation Cardiovascular: NL Sounds; No Murmurs; No JVD, RRR Abdominal: NL Sounds; No Tenderness; No Distention Extremities: No Clubbing, Cyanosis Skin: - - left toes dressed, CDI Neurological: - - lethargic Result Diagrams: 11/23/18 08:09 11/23/18 08:09 Microbiology and Other Data: Microbiology 11/17/18 19:49 Aerobic Blood Culture - Preliminary Blood Venous No Growth Day 2 Anaerobic Blood Culture - Preliminary No Growth Day 2 11/17/18 19:49 Aerobic Blood Culture - Preliminary Blood Venous No Growth Day 2 Anaerobic Blood Culture - Preliminary No Growth Day 2 11/18/18 00:00 Nasal Screen MRSA (PCR) - Final Nasal Mrsa Not Detected Diagnostic Imaging: Patient Name: MILADYS MARKHAM Medical Record#: [id number] Ordering Physician: Andrew Catherine MD Acct.#: [id number] : 1955 Age: 62 Sex: M Location: [address] [place] [address] - MEDICAL Exam Date: 11/17/181858 ADM Status: ADM IN Order Information: FOOT LEFT 3+ VWS Accession Number: [id number] CPT: 00465 INDICATION: Left foot injury. TECHNIQUE: 3 views of the left foot were obtained. FINDINGS: 1 of the views is motion degraded. Subcutaneous emphysema is seen about the distal first phalanx. No clear periosteal reaction or erosive osseous changes are seen. The bones are mildly osteopenic. No fracture is identified. A plantar calcaneal enthesophyte is present. There is pes planus morphology of the foot. The joint spaces are grossly maintained. IMPRESSION: 1. Subcutaneous emphysema about the distal first phalanx with no clear osseous destruction. 2. No fracture. R2 Preliminary Imaging Read R2 Assess/Plan/Problems-Billing Assessment: Mr. 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 - Patient Problems (1) Gangrene of left foot Code(s): I96 - GANGRENE, NOT ELSEWHERE CLASSIFIED SNOMED Code(s): 55569910622108871 Comment: - MRSA positive drainage from left great toe - Continue vancomycin with goal troughs 15-20 - Drs. Rodriguez and Laxmi consulting - MRI without osteo, per Dr. Rodriguez, CTA shows occlusions to bilateral SFA's that should be treatable. Will plan for attempt at revascularization early next week. Will defer to Dr. Hair for surgical intervention thereafter. (2) Acute delirium Code(s): R41.0 - DISORIENTATION, UNSPECIFIED SNOMED Code(s): 8957887 Comment: - Multifactorial, likely combination of CVA with residual deficits, hospitalization and infection - Per niece, patient has had periods of delerium since his stroke in June, but this is the worst she's seen. Discussed possibility of new stroke, given carotid occlusions, however, patient cannot tolerate sitting for long periods and cannot follow commands for MRI, and patient is already on DAPT and statin and optimized medically - Urgent need would be to continue to treat infection, prevent bacteremia/ sepsis and to identify surgical plan while continuing symptom management (3) History of CVA with residual deficit Code(s): I69.30 - UNSPECIFIED SEQUELAE OF CEREBRAL INFARCTION SNOMED Code(s): 752683360 Comment: - Baseline residual right sided hemiparesis and chronic encephalopathic changes /dementia - Reportedly with 100% bilat carotid stenosis - Continue aspirin, Plavix - Continue depakote sprinkles, xanax, SSRI and ativan PRN - Paradoxical reaction to haldol, do not recommend continuing - Pending records from [facility] (4) Hyperlipidemia Code(s): E78.5 - HYPERLIPIDEMIA, UNSPECIFIED SNOMED Code(s): 08648145 Comment: - Continue atorvastatin (5) Hypertension Code(s): I10 - ESSENTIAL (PRIMARY) HYPERTENSION SNOMED Code(s): 33866902 Comment: - Normotensive, SBP 90-120s - Continue metoprolol, amlodipine (6) DVT prophylaxis Code(s): Z29.9 - ENCOUNTER FOR PROPHYLACTIC MEASURES, UNSPECIFIED SNOMED Code( s): 131276557 Comment: - Lovenox (7) DNR (do not resuscitate) Comment: Status and Disposition: Inpatient for IV vanco/MRSA treatment with intent for surgical intervention next week.
[2018-11-24] MEDS: ALPRAZolam TAB* 0.25 MG PO PRN (17:23)
[2018-11-24] MEDS: Melatonin 3 MG TAB PO SCH (22:42)
[2018-11-24] MEDS: Enoxaparin(*) 40 MG/0.4 ML SYR SUBCUT SCH (22:42)
[2018-11-24] MEDS: Tamsulosin CAP* 0.4 MG PO SCH (22:43)
[2018-11-24] MEDS: Lidocaine Patch REMOVE* 1 NOTE MISC PATCH OFF SCH (22:49)
[2018-11-25] MEDS: Vancomycin(*) 1,000 MG in NS 0.9% 250 ML* 250 ML IVPB SCH ×2 (01:46→10:15)
[2018-11-25] MEDS: LORazepam INJ* 2 MG/ML 1 ML VIAL IV PUSH PRN ×2 (04:10→12:21)
[2018-11-25 06:16] LABS: ABS Eosinophils 0.3 10^3/ul (0-0.6); ABS Lymphocytes 1.2 10^3/ul (1.0-4.8); ABS Monocytes 0.7 10^3/ul (0-0.8); ABS Neutrophils 4.4 10^3/ul (1.5-7.7); Eosinophil % 4.5 %; Hematocrit 28 % (42-52); Hemoglobin 9.4 g/dL (14.0-18.0); Lymphocyte % 18.7 %; Mean Corpuscular HGB Conc 33 g/dL (31-36); Mean Corpuscular Hemoglobin 31 pg (27-31); Mean Corpuscular Volume 92 fL (80-94); Mean Platelet Volume 6.7 fL (7.4-10.4); Platelet Count 265 10^3/uL (150-450); Red Blood Count 3.09 10^6 /uL (4.18-5.48); Red Cell Distribution Width 16 % (10-15); White Blood Count 6.6 10^3/uL (3.5-10.8)
[2018-11-25 06:32] LABS: Albumin 3.3 g/dL (3.2-5.2); Albumin/Globulin Ratio 1.1 (1-3); BUN/Creatinine Ratio 28.2 (8-20); C Reactive Protein 14.13 mg/L (<8.01); Calcium 8.3 mg/dL (8.6-10.3); EGFR African American 121.6 (>60); EGFR Non-African American 100.5 (>60); Globulin 3.1 g/dL (2-4); Total Bilirubin 0.2 mg/dL (0.2-1.0); Total Protein 6.4 g/dL (6.4-8.9)
[2018-11-25] MEDS ORDERED: Vancomycin Trough Check NOTE FOLLOW UP ONE (08:30)
[2018-11-25] MEDS: Metoprolol Succinate XL TAB* 50 MG PO SCH (10:02)
[2018-11-25] MEDS: Fluticasone NASAL SPRAY 50MCG* 16 gm SPRAY BTL BOTH NARES SCH (10:03)
[2018-11-25] MEDS: Clopidogrel TAB* 75 MG PO SCH (10:03)
[2018-11-25] MEDS: amLODIPine TAB* 5 MG PO SCH (10:04)
[2018-11-25] MEDS: Amoxicillin/Clavulanate TAB* 500 MG PO SCH ×2 (10:05→20:09)
[2018-11-25] MEDS: Folic Acid TAB* 1 MG PO SCH (10:05)
[2018-11-25] MEDS: Atorvastatin* 80 MG TAB PO SCH (10:05)
[2018-11-25] MEDS: Famotidine TAB* 20 MG PO SCH (10:05)
[2018-11-25] MEDS: Furosemide TAB* 20 MG PO SCH (10:06)
[2018-11-25] MEDS: Pantoprazole TAB * 40 MG TAB PO SCH (10:06)
[2018-11-25] MEDS: Potassium Chlor TAB* 20 MEQ TAB.ER PO SCH (10:06)
[2018-11-25] MEDS: Aspirin EC TAB* 81 MG TAB.EC PO SCH (10:06)
[2018-11-25] MEDS: ALPRAZolam TAB* 0.25 MG PO PRN ×2 (10:07→21:23)
[2018-11-25] MEDS: Thiamine TAB* 100 MG TAB PO SCH (10:08)
[2018-11-25] MEDS: Sertraline* 25 MG TAB PO SCH ×2 (10:08→20:10)
[2018-11-25] MEDS: Divalproex Sprinkle CAP* 125 MG PO SCH ×2 (10:08→20:10)
[2018-11-25] MEDS: Lidocaine PATCH 5%* 1 PATCH TRANSDERM SCH (10:15)
[2018-11-25] MEDS: HYDROcodone/ACETAMIN 5-325 MG* 1 TAB PO PRN ×2 (12:20→20:09)
--- NOTE | 2018-11-25 13:05 | PN ---
Subjective Date of Service: 11/25/18 Interval History: Non-participatory in history overall today. Initially when asked how he was felling responded, "terrific," but with no follow up from him. Report from 1:1 aide tells me he was agitated between 9am-11am and was later given ativan. My evaluation was shortly after this medication administration. Family History: Unchanged from Admission Social History: Unchanged from Admission Past Medical History: Unchanged from Admission Objective Active Medications: Hydrocodone Bitart/Acetaminophen ([place] 5-325 Tab*) 1 tab PO Q4H PRN PRN Reason: PAIN - SEVERE Last Admin: 11/25/18 12:20 Dose: 1 tab Alprazolam (Xanax Tab*) 0.25 mg PO BID PRN PRN Reason: AGITATION/ANXIETY Last Admin: 11/25/18 10:07 Dose: 0.25 mg Amlodipine Besylate (Norvasc Tab*) 10 mg PO DAILY [facility] Last Admin: 11/25/18 10:04 Dose: 10 mg Amoxicillin/Clavulanate Potassium (Augmentin Tab*) 500 mg PO BID [facility] Stop: 11/28/18 15:59 Last Admin: 11/25/18 10:05 Dose: 500 mg Aspirin (Aspirin Ec Tab*) 81 mg PO DAILY [facility] Last Admin: 11/25/18 10:06 Dose: 81 mg Atorvastatin Calcium (Lipitor*) 80 mg PO DAILY [facility] Last Admin: 11/25/18 10:05 Dose: 80 mg Clopidogrel Bisulfate (Plavix Tab*) 75 mg PO DAILY [facility] Last Admin: 11/25/18 10:03 Dose: 75 mg Divalproex Sodium (Depakote Sprinkle Cap*) 125 mg PO BID [facility] Last Admin: 11/25/18 10:08 Dose: 125 mg Enoxaparin Sodium (Lovenox(*)) 40 mg SUBCUT BEDTIME [facility] Last Admin: 11/24/18 22:42 Dose: 40 mg Famotidine (Pepcid Tab*) 20 mg PO DAILY [facility] Last Admin: 11/25/18 10:05 Dose: 20 mg Fluticasone Propionate (Flonase Nasal [place] 50mcg*) 1 spray BOTH NARES DAILY [facility] Last Admin: 11/25/18 10:03 Dose: 1 spray Folic Acid (Folvite Tab*) 1 mg PO DAILY [facility] Last Admin: 11/25/18 10:05 Dose: 1 mg Furosemide (Lasix Tab*) 20 mg PO DAILY@0900 [facility] Last Admin: 11/25/18 10:06 Dose: 20 mg Glycerin (Glycerin Adult Supp*) 1 supp [place] DAILY PRN PRN Reason: CONSTIPATION Last Admin: 11/19/18 10:00 Dose: 1 supp Vancomycin HCl 1,000 mg/ (Sodium Chloride) 250 mls @ 166.667 mls/hr IVPB Q8H [facility] Stop: 11/25/18 13:00 Last Admin: 11/25/18 10:15 Dose: 166.667 mls/hr Vancomycin HCl 1,250 mg/ (Sodium Chloride) 250 mls @ 166.667 mls/hr IVPB Q12H [facility] Lidocaine (Lidoderm 5% Patch*) 2 patch TRANSDERM DAILY [facility] Last Admin: 11/25/18 10:15 Dose: 2 patch Lorazepam (Ativan Inj*) 1 mg IV PUSH Q6H PRN PRN Reason: ANXIETY Last Admin: 11/25/18 12:21 Dose: 1 mg Magnesium Hydroxide (Milk Of Magnesia Liq*) 30 ml PO DAILY PRN PRN Reason: CONSTIPATION Last Admin: 11/19/18 10:03 Dose: 30 ml Melatonin (Melatonin) 3 mg PO BEDTIME [facility] Last Admin: 11/24/18 22:42 Dose: 3 mg Metoprolol Succinate (Toprol Xl Tab*) 150 mg PO DAILY [facility] Last Admin: 11/25/18 10:02 Dose: 150 mg Miscellaneous (Ativan Pyxis [place]) 1 ea N/A .ATIVAN IV ROBLES PRN PRN Reason: PYXIS ROBLES Pantoprazole Sodium (Protonix Tab*) 40 mg PO DAILY [facility] Last Admin: 11/25/18 10:06 Dose: 40 mg Pharmacy Consult (Vancomycin Per Pharmacy*) 1 note FOLLOW UP .VANC PER PHARMACY [facility]; Protocol Pharmacy Profile Note (Lidocaine Patch Remove*) 2 note PATCH OFF BEDTIME [facility] Last Admin: 11/24/18 22:49 Dose: Not Given Pharmacy Profile Note (Vancomycin Trough Check) 1 note FOLLOW UP ONCE ONE Stop: 11/27/18 08:31 Potassium Chloride (Klor Con Er Tab*) 20 meq PO DAILY@0900 [facility] Last Admin: 11/25/18 10:06 Dose: 20 meq Senna (Senokot 8.6 Mg Tab*) 1 tab PO QPM PRN PRN Reason: CONSTIPATION Last Admin: 11/18/18 12:06 Dose: 1 tab Sertraline HCl (Zoloft*) 25 mg PO BID@0900,2100 [facility] Last Admin: 11/25/18 10:08 Dose: 25 mg Sodium Biphosphate/Sodium Phosphate (Fleet Enema*) 1 bottle [place] DAILY PRN PRN Reason: CONSTIPATION Tamsulosin HCl (Flomax Cap*) 0.4 mg PO BEDTIME [facility] Last Admin: 11/24/18 22:43 Dose: 0.4 mg Thiamine HCl (Vitamin B-1 Tab*) 100 mg PO DAILY [facility] Last Admin: 11/25/18 10:08 Dose: 100 mg Tramadol HCl (Ultram*) 50 mg PO Q6HR PRN PRN Reason: PAIN - MODERATE Last Admin: 11/23/18 19:46 Dose: 50 mg Trazodone HCl (Desyrel Tab*) 100 mg PO BEDTIME PRN PRN Reason: INSOMNIA Last Admin: 11/23/18 19:48 Dose: 100 mg Vital Signs - 8 hr 11/25/18 11/25/18 11/25/18 05:10 08:00 10:07 Temperature 97.8 F Pulse Rate 65 Respiratory 18 18 18 Rate Blood Pressure 127/66 (mmHg) O2 Sat by Pulse 98 Oximetry 11/25/18 11/25/18 11/25/18 11:12 12:20 12:21 Temperature 97.8 F Pulse Rate 65 Respiratory 18 18 18 Rate Blood Pressure 127/66 (mmHg) O2 Sat by Pulse 99 Oximetry 11/25/18 12:26 Temperature Pulse Rate Respiratory 18 Rate Blood Pressure (mmHg) O2 Sat by Pulse Oximetry Oxygen Devices in Use Now: None Appearance: Elderly, white male, laying in bed, appearing in NAD Eyes: No Scleral Icterus, PERRLA Ears/Nose/Mouth/Throat: Mucous Membranes Moist Neck: NL Appearance and Movements; NL JVP Respiratory: Symmetrical Chest Expansion and Respiratory Effort, Clear to Auscultation Cardiovascular: NL Sounds; No Murmurs; No JVD, RRR Abdominal: - - abd soft, nontender, nondistended Extremities: No Edema, No Clubbing, Cyanosis, - - L forefoot in gauze wraps Skin: No Rash or Ulcers Neurological: NL Muscle Strength and Tone, - - initially alerts to voice, then does not interact verbally for most of exam, follows verbal commands Result Diagrams: 11/25/18 05:36 11/25/18 05:26 Microbiology and Other Data: Microbiology 11/17/18 19:49 Aerobic Blood Culture - Preliminary Blood Venous No Growth Day 2 Anaerobic Blood Culture - Preliminary No Growth Day 2 11/17/18 19:49 Aerobic Blood Culture - Preliminary Blood Venous No Growth Day 2 Anaerobic Blood Culture - Preliminary No Growth Day 2 11/18/18 00:00 Nasal Screen MRSA (PCR) - Final Nasal Mrsa Not Detected Diagnostic Imaging: Patient Name: MILADYS MARKHAM Medical Record#: [id number] Ordering Physician: Andrew Catherine MD Acct.#: [id number] : 1955 Age: 62 Sex: M Location: [address] [place] [address] - MEDICAL Exam Date: 11/17/181858 ADM Status: ADM IN Order Information: FOOT LEFT 3+ VWS Accession Number: [id number] CPT: 29832 INDICATION: Left foot injury. TECHNIQUE: 3 views of the left foot were obtained. FINDINGS: 1 of the views is motion degraded. Subcutaneous emphysema is seen about the distal first phalanx. No clear periosteal reaction or erosive osseous changes are seen. The bones are mildly osteopenic. No fracture is identified. A plantar calcaneal enthesophyte is present. There is pes planus morphology of the foot. The joint spaces are grossly maintained. IMPRESSION: 1. Subcutaneous emphysema about the distal first phalanx with no clear osseous destruction. 2. No fracture. R2 Preliminary Imaging Read R2 Assess/Plan/Problems-Billing Assessment: Mr. 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 - Patient Problems (1) Gangrene of left foot Current Visit: Yes Status: Acute Code(s): I96 - GANGRENE, NOT ELSEWHERE CLASSIFIED SNOMED Code(s): 06989971281662280 Comment: - Left great toe drainage culture with MRSA and proteus - Continue vancomycin with goal troughs 15-20, plus augmentin to cover proteus - Drs. Rodriguez and Laxmi consulting - MRI without osteo, per Dr. Rodriguez, CTA shows occlusions to bilateral SFA's that should be treatable. Will plan for attempt at revascularization early next week. Will defer to Dr. Hair for surgical intervention thereafter - Afebrile, no leukocytosis (2) Acute delirium Current Visit: Yes Status: Acute Code(s): R41.0 - DISORIENTATION, UNSPECIFIED SNOMED Code(s): 3297640 Comment: - Multifactorial, likely combination of CVA with residual deficits, hospitalization and infection - Per niece, patient has had periods of delerium since his stroke in June, but this is the worst she's seen. Discussed possibility of new stroke, given carotid occlusions, however, patient cannot tolerate sitting for long periods and cannot follow commands for MRI, and patient is already on DAPT and statin and optimized medically - Urgent need would be to continue to treat infection, prevent bacteremia/ sepsis and to identify surgical plan while continuing symptom management - Continue prn ativan for agitation (3) Hypertension Current Visit: Yes Status: Acute Code(s): I10 - ESSENTIAL (PRIMARY) HYPERTENSION SNOMED Code(s): 16195512 Comment: - Normotensive, SBP 100s-120s - Continue metoprolol, amlodipine (4) History of CVA with residual deficit Current Visit: Yes Status: Acute Code(s): I69.30 - UNSPECIFIED SEQUELAE OF CEREBRAL INFARCTION SNOMED Code(s): 681508408 Comment: - Baseline residual right sided hemiparesis and chronic encephalopathic changes /dementia - Reportedly with 100% bilat carotid stenosis - Continue aspirin, Plavix - Continue depakote sprinkles, xanax, SSRI and ativan PRN - Paradoxical reaction to haldol, do not recommend continuing - Pending records from [facility] (5) Hyperlipidemia Current Visit: Yes Status: Acute Code(s): E78.5 - HYPERLIPIDEMIA, UNSPECIFIED SNOMED Code(s): 88148143 Comment: - Continue atorvastatin (6) Anxiety Current Visit: Yes Status: Acute Code(s): F41.9 - ANXIETY DISORDER, UNSPECIFIED SNOMED Code(s): 35472791 Comment: -continue zoloft and prn xanax (7) DNR (do not resuscitate) Current Visit: Yes Status: Acute Comment: (8) DVT prophylaxis Current Visit: Yes Status: Acute Code(s): Z29.9 - ENCOUNTER FOR PROPHYLACTIC MEASURES, UNSPECIFIED SNOMED Code(s): 260730153 Comment: - Lovenox Status and Disposition: Inpatient for IV vanco/MRSA treatment with intent for surgical intervention next week.
[2018-11-25] MEDS: Magnesium Hydroxide LIQ* 30 ML UDC PO PRN (13:49)
[2018-11-25] MEDS: traMADol TAB* 50 MG PO PRN (16:28)
[2018-11-25] MEDS: Senna TAB 8.6 mg* TAB PO PRN (16:29)
[2018-11-25] MEDS: Enoxaparin(*) 40 MG/0.4 ML SYR SUBCUT SCH (20:10)
[2018-11-25] MEDS: traZODone TAB* 100 MG PO PRN (20:10)
[2018-11-25] MEDS: Vancomycin(*) 1,250 MG in NS 0.9% 250 ML* 250 ML IVPB SCH (20:10)
[2018-11-25] MEDS: Tamsulosin CAP* 0.4 MG PO SCH (20:10)
[2018-11-25] MEDS: Melatonin 3 MG TAB PO SCH (20:10)
[2018-11-26] MEDS: Lidocaine Patch REMOVE* 1 NOTE MISC PATCH OFF SCH ×2 (00:44→20:12)
[2018-11-26] MEDS: traMADol TAB* 50 MG PO PRN (02:58)
[2018-11-26] MEDS: LORazepam INJ* 2 MG/ML 1 ML VIAL IV PUSH PRN ×2 (02:59→17:35)
[2018-11-26 06:12] LABS: BUN/Creatinine Ratio 23.1 (8-20); Calcium 8.8 mg/dL (8.6-10.3); EGFR African American 150.1 (>60); EGFR Non-African American 124.1 (>60); Potassium 3.9 mmol/L (3.5-5.0)
[2018-11-26] MEDS: Vancomycin(*) 1,250 MG in NS 0.9% 250 ML* 250 ML IVPB SCH ×2 (10:06→20:11)
[2018-11-26] MEDS: Lidocaine PATCH 5%* 1 PATCH TRANSDERM SCH (10:13)
[2018-11-26] MEDS: Glycerin ADULT SUPP PR PRN (10:15)
[2018-11-26] MEDS: amLODIPine TAB* 5 MG PO SCH (10:17)
[2018-11-26] MEDS: Clopidogrel TAB* 75 MG PO SCH (10:17)
[2018-11-26] MEDS: Metoprolol Succinate XL TAB* 50 MG PO SCH (10:18)
[2018-11-26] MEDS: Potassium Chlor TAB* 20 MEQ TAB.ER PO SCH (10:18)
[2018-11-26] MEDS: Atorvastatin* 80 MG TAB PO SCH (10:18)
[2018-11-26] MEDS: Amoxicillin/Clavulanate TAB* 500 MG PO SCH ×2 (10:19→20:10)
[2018-11-26] MEDS: Folic Acid TAB* 1 MG PO SCH (10:19)
[2018-11-26] MEDS: Pantoprazole TAB * 40 MG TAB PO SCH (10:19)
[2018-11-26] MEDS: Famotidine TAB* 20 MG PO SCH (10:20)
[2018-11-26] MEDS: Sertraline* 25 MG TAB PO SCH ×2 (10:20→20:10)
[2018-11-26] MEDS: Aspirin EC TAB* 81 MG TAB.EC PO SCH (10:21)
[2018-11-26] MEDS: Divalproex Sprinkle CAP* 125 MG PO SCH ×2 (10:21→20:11)
[2018-11-26] MEDS: Thiamine TAB* 100 MG TAB PO SCH (10:21)
[2018-11-26] MEDS: Fluticasone NASAL SPRAY 50MCG* 16 gm SPRAY BTL BOTH NARES SCH (10:22)
[2018-11-26] MEDS: Furosemide TAB* 20 MG PO SCH (10:26)
--- NOTE | 2018-11-26 11:35 | PN ---
Subjective Date of Service: 11/26/18 Interval History: Patient denies any complaints today. Patient has no insight into why he is here. Patient thinks it is August 2012 and he is at [facility]. Family History: Unchanged from Admission Social History: Unchanged from Admission Past Medical History: Unchanged from Admission Objective Active Medications: Hydrocodone Bitart/Acetaminophen ([place] 5-325 Tab*) 1 tab PO Q4H PRN PRN Reason: PAIN - SEVERE Last Admin: 11/25/18 20:09 Dose: 1 tab Alprazolam (Xanax Tab*) 0.25 mg PO BID PRN PRN Reason: AGITATION/ANXIETY Last Admin: 11/25/18 21:23 Dose: 0.25 mg Amlodipine Besylate (Norvasc Tab*) 10 mg PO DAILY [facility] Last Admin: 11/26/18 10:17 Dose: 10 mg Amoxicillin/Clavulanate Potassium (Augmentin Tab*) 500 mg PO BID [facility] Stop: 11/28/18 15:59 Last Admin: 11/26/18 10:19 Dose: 500 mg Aspirin (Aspirin Ec Tab*) 81 mg PO DAILY [facility] Last Admin: 11/26/18 10:21 Dose: 81 mg Atorvastatin Calcium (Lipitor*) 80 mg PO DAILY [facility] Last Admin: 11/26/18 10:18 Dose: 80 mg Clopidogrel Bisulfate (Plavix Tab*) 75 mg PO DAILY [facility] Last Admin: 11/26/18 10:17 Dose: 75 mg Divalproex Sodium (Depakote Sprinkle Cap*) 125 mg PO BID [facility] Last Admin: 11/26/18 10:21 Dose: 125 mg Enoxaparin Sodium (Lovenox(*)) 40 mg SUBCUT BEDTIME [facility] Last Admin: 11/25/18 20:10 Dose: 40 mg Famotidine (Pepcid Tab*) 20 mg PO DAILY [facility] Last Admin: 11/26/18 10:20 Dose: 20 mg Fluticasone Propionate (Flonase Nasal [place] 50mcg*) 1 spray BOTH NARES DAILY [facility] Last Admin: 11/26/18 10:22 Dose: 1 spray Folic Acid (Folvite Tab*) 1 mg PO DAILY [facility] Last Admin: 11/26/18 10:19 Dose: 1 mg Furosemide (Lasix Tab*) 20 mg PO DAILY@0900 [facility] Last Admin: 11/26/18 10:26 Dose: 20 mg Glycerin (Glycerin Adult Supp*) 1 supp ID DAILY PRN PRN Reason: CONSTIPATION Last Admin: 11/26/18 10:15 Dose: 1 supp Vancomycin HCl 1,250 mg/ (Sodium Chloride) 250 mls @ 166.667 mls/hr IVPB Q12H [facility] Last Admin: 11/26/18 10:06 Dose: 166.667 mls/hr Lidocaine (Lidoderm 5% Patch*) 2 patch TRANSDERM DAILY [facility] Last Admin: 11/26/18 10:13 Dose: 2 patch Lorazepam (Ativan Inj*) 1 mg IV PUSH Q6H PRN PRN Reason: ANXIETY Last Admin: 11/26/18 02:59 Dose: 1 mg Magnesium Hydroxide (Milk Of Magnesia Liq*) 30 ml PO DAILY PRN PRN Reason: CONSTIPATION Last Admin: 11/19/18 10:03 Dose: 30 ml Melatonin (Melatonin) 3 mg PO BEDTIME [facility] Last Admin: 11/25/18 20:10 Dose: 3 mg Metoprolol Succinate (Toprol Xl Tab*) 150 mg PO DAILY [facility] Last Admin: 11/26/18 10:18 Dose: 150 mg Miscellaneous (Ativan Pyxis Rob[place]) 1 ea N/A .ATIVAN IV ROBLES PRN PRN Reason: PYXIS ROBLES Pantoprazole Sodium (Protonix Tab*) 40 mg PO DAILY [facility] Last Admin: 11/26/18 10:19 Dose: 40 mg Pharmacy Consult (Vancomycin Per Pharmacy*) 1 note FOLLOW UP .VANC PER PHARMACY [facility]; Protocol Pharmacy Profile Note (Lidocaine Patch Remove*) 2 note PATCH OFF BEDTIME [facility] Last Admin: 11/26/18 00:44 Dose: Not Given Pharmacy Profile Note (Vancomycin Trough Check) 1 note FOLLOW UP ONCE ONE Stop: 11/27/18 08:31 Potassium Chloride (Klor Con Er Tab*) 20 meq PO DAILY@0900 [facility] Last Admin: 11/26/18 10:18 Dose: 20 meq Senna (Senokot 8.6 Mg Tab*) 1 tab PO QPM PRN PRN Reason: CONSTIPATION Last Admin: 11/25/18 16:29 Dose: 1 tab Sertraline HCl (Zoloft*) 25 mg PO BID@0900,2100 [facility] Last Admin: 11/26/18 10:20 Dose: 25 mg Sodium Biphosphate/Sodium Phosphate (Fleet Enema*) 1 bottle ID DAILY PRN PRN Reason: CONSTIPATION Tamsulosin HCl (Flomax Cap*) 0.4 mg PO BEDTIME [facility] Last Admin: 11/25/18 20:10 Dose: 0.4 mg Thiamine HCl (Vitamin B-1 Tab*) 100 mg PO DAILY [facility] Last Admin: 11/26/18 10:21 Dose: 100 mg Tramadol HCl (Ultram*) 50 mg PO Q6HR PRN PRN Reason: PAIN - MODERATE Last Admin: 11/26/18 02:58 Dose: 50 mg Trazodone HCl (Desyrel Tab*) 100 mg PO BEDTIME PRN PRN Reason: INSOMNIA Last Admin: 11/25/18 20:10 Dose: 100 mg Vital Signs - 8 hr 11/26/18 11/26/18 04:04 06:18 Temperature 97.5 F Pulse Rate 67 Respiratory 16 18 Rate Blood Pressure 139/80 (mmHg) O2 Sat by Pulse 99 Oximetry Oxygen Devices in Use Now: None Appearance: Patient is a 62yo male who appears stated age and is sitting in the bed in [facility]. Eyes: No Scleral Icterus, PERRLA Ears/Nose/Mouth/Throat: NL Teeth, Lips, Gums, Clear Oropharnyx, Mucous Membranes Moist Neck: NL Appearance and Movements; NL JVP, Trachea Midline Respiratory: Symmetrical Chest Expansion and Respiratory Effort, Clear to Auscultation Cardiovascular: NL Sounds; No Murmurs; No JVD, RRR, No Edema Abdominal: NL Sounds; No Tenderness; No Distention, No Hepatosplenomegaly Lymphatic: No Cervical Adenopathy Extremities: No Edema, No Clubbing, Cyanosis Skin: No Nodules or Sclerosis, - - Foot covered in Bulky dressing and not visualized. Pulses trace in DP and PT areas B/L. Neurological: - - No focal Deficits, Alert, oriented only to self. Result Diagrams: 11/25/18 05:36 11/26/18 05:32 Additional Lab and Data: Above labs were pulled into the note when edited prior to signing, below are the labs from the day of consultation. Laboratory Tests Microbiology and Other Data: Microbiology Diagnostic Imaging: Patient Name: MILADYS MARKHAM Medical Record#: [id number] Ordering Physician: Andrew Catherine MD Acct.#: [id number] : 1955 Age: 62 Sex: M Location: [address] [place] [address] - MEDICAL Exam Date: 11/17/18 185 ADM Status: ADM IN Order Information: FOOT LEFT 3+ VWS Accession Number: [id number] CPT: 58775 INDICATION: Left foot injury. TECHNIQUE: 3 views of the left foot were obtained. FINDINGS: 1 of the views is motion degraded. Subcutaneous emphysema is seen about the distal first phalanx. No clear periosteal reaction or erosive osseous changes are seen. The bones are mildly osteopenic. No fracture is identified. A plantar calcaneal enthesophyte is present. There is pes planus morphology of the foot. The joint spaces are grossly maintained. IMPRESSION: 1. Subcutaneous emphysema about the distal first phalanx with no clear osseous destruction. 2. No fracture. R2 Preliminary Imaging Read R2 Assess/Plan/Problems-Billing Assessment: Mr. 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 - Patient Problems (1) Gangrene of left foot Current Visit: Yes Status: Acute Code(s): I96 - GANGRENE, NOT ELSEWHERE CLASSIFIED SNOMED Code(s): 20353332839296657 Comment: - Left great toe drainage culture with MRSA and proteus - Continue vancomycin with goal troughs 15-20, plus augmentin to cover proteus - Drs. Rodriguez and Laxmi consulting - MRI without osteo, per Dr. Rodriguez, CTA shows occlusions to bilateral SFA's that should be treatable. Will plan for attempt at revascularization early next week. Will defer to Dr. Hair for surgical intervention thereafter - Afebrile, no leukocytosis (2) Acute delirium Current Visit: Yes Status: Acute Code(s): R41.0 - DISORIENTATION, UNSPECIFIED SNOMED Code(s): 7910593 Comment: - Multifactorial, likely combination of CVA with residual deficits, hospitalization and infection - Per niece, patient has had periods of delerium since his stroke in June, but this is the worst she's seen. Discussed possibility of new stroke, given carotid occlusions, however, patient cannot tolerate sitting for long periods and cannot follow commands for MRI, and patient is already on DAPT and statin and optimized medically - Urgent need would be to continue to treat infection, prevent bacteremia/ sepsis and to identify surgical plan while continuing symptom management - Continue prn ativan for agitation - Should improve after hospitalization and infection improved. (3) Anemia Current Visit: Yes Status: Acute Code(s): D64.9 - ANEMIA, UNSPECIFIED SNOMED Code(s): 747174967 Comment: - Stable - Suspect anemia of chronic disease due to foot infection (4) Anxiety Current Visit: Yes Status: Acute Code(s): F41.9 - ANXIETY DISORDER, UNSPECIFIED SNOMED Code(s): 56663792 Comment: - Continue zoloft and prn xanax (5) GERD (gastroesophageal reflux disease) Current Visit: Yes Status: Acute Code(s): K21.9 - GASTRO-ESOPHAGEAL REFLUX DISEASE WITHOUT ESOPHAGITIS SNOMED Code(s): 597655941 Comment: - Continue pantoprazole (6) History of CVA with residual deficit Current Visit: Yes Status: Acute Code(s): I69.30 - UNSPECIFIED SEQUELAE OF CEREBRAL INFARCTION SNOMED Code(s): 382145766 Comment: - Baseline residual right sided hemiparesis and chronic encephalopathic changes /dementia - Reportedly with 100% bilat carotid stenosis, will check this in records - Continue aspirin, Plavix - Continue depakote sprinkles, xanax, SSRI and ativan PRN - Paradoxical reaction to haldol, do not recommend continuing - Pending records from [place] (7) Hyperlipidemia Current Visit: Yes Status: Acute Code(s): E78.5 - HYPERLIPIDEMIA, UNSPECIFIED SNOMED Code(s): 49639688 Comment: - Continue atorvastatin (8) Hypertension Current Visit: Yes Status: Acute Code(s): I10 - ESSENTIAL (PRIMARY) HYPERTENSION SNOMED Code(s): 53530104 Comment: - Normotensive, SBP 100s-120s - Continue metoprolol, amlodipine (9) Lower extremity edema Current Visit: Yes Status: Acute Code(s): R60.0 - LOCALIZED EDEMA SNOMED Code(s): 035851597 Comment: - With associated wounds, new in the last 2 months - ? Related to venous stasis - LE US unremarkable except for atherosclerosis - Echo unremarkable - Continue furosemide (10) DNR (do not resuscitate) Current Visit: Yes Status: Acute Comment: (11) DVT prophylaxis Current Visit: Yes Status: Acute Code(s): Z29.9 - ENCOUNTER FOR PROPHYLACTIC MEASURES, UNSPECIFIED SNOMED Code(s): 520210453 Comment: - Lovenox Status and Disposition: Inpatient, awaiting MRI. Anticipate d/c back to [place] when medically stable.
[2018-11-26] MEDS: ALPRAZolam TAB* 0.25 MG PO PRN ×2 (14:14→20:09)
[2018-11-26] MEDS: HYDROcodone/ACETAMIN 5-325 MG* 1 TAB PO PRN ×2 (14:18→20:10)
[2018-11-26] MEDS ORDERED: NS 0.9% 250 ML* 250 ML ONE (20:02)
[2018-11-26] MEDS: Tamsulosin CAP* 0.4 MG PO SCH (20:10)
[2018-11-26] MEDS: Melatonin 3 MG TAB PO SCH (20:10)
[2018-11-26] MEDS: traZODone TAB* 100 MG PO PRN (20:11)
[2018-11-26] MEDS: Enoxaparin(*) 40 MG/0.4 ML SYR SUBCUT SCH (20:11)
[2018-11-27] MEDS: LORazepam INJ* 2 MG/ML 1 ML VIAL IV PUSH PRN ×3 (03:38→19:32)
[2018-11-27] MEDS: HYDROcodone/ACETAMIN 5-325 MG* 1 TAB PO PRN ×3 (05:25→16:25)
[2018-11-27] MEDS ORDERED: Vancomycin Trough Check NOTE FOLLOW UP ONE (08:30)
[2018-11-27] MEDS: Furosemide TAB* 20 MG PO SCH (08:51)
[2018-11-27] MEDS: Metoprolol Succinate XL TAB* 50 MG PO SCH (08:51)
[2018-11-27] MEDS: Clopidogrel TAB* 75 MG PO SCH (08:52)
[2018-11-27] MEDS: Amoxicillin/Clavulanate TAB* 500 MG PO SCH ×2 (08:52→22:20)
[2018-11-27] MEDS: Atorvastatin* 80 MG TAB PO SCH (08:52)
[2018-11-27] MEDS: Folic Acid TAB* 1 MG PO SCH (08:52)
[2018-11-27] MEDS: Pantoprazole TAB * 40 MG TAB PO SCH (08:52)
[2018-11-27] MEDS: ALPRAZolam TAB* 0.25 MG PO PRN (08:53)
[2018-11-27] MEDS: Aspirin EC TAB* 81 MG TAB.EC PO SCH (08:53)
[2018-11-27] MEDS: Divalproex Sprinkle CAP* 125 MG PO SCH ×2 (08:53→22:20)
[2018-11-27] MEDS: Potassium Chlor TAB* 20 MEQ TAB.ER PO SCH (08:54)
[2018-11-27] MEDS: Thiamine TAB* 100 MG TAB PO SCH (08:54)
[2018-11-27] MEDS: amLODIPine TAB* 5 MG PO SCH (08:54)
[2018-11-27] MEDS: Sertraline* 25 MG TAB PO SCH ×2 (08:54→22:21)
[2018-11-27] MEDS: Magnesium Hydroxide LIQ* 30 ML UDC PO PRN (08:55)
[2018-11-27] MEDS: Lidocaine PATCH 5%* 1 PATCH TRANSDERM SCH (08:55)
[2018-11-27] MEDS: Fluticasone NASAL SPRAY 50MCG* 16 gm SPRAY BTL BOTH NARES SCH (08:55)
[2018-11-27] MEDS: Famotidine TAB* 20 MG PO SCH (08:55)
[2018-11-27 13:22] LABS: ABS Eosinophils 0.3 10^3/ul (0-0.6); ABS Lymphocytes 0.7 10^3/ul (1.0-4.8); ABS Monocytes 0.4 10^3/ul (0-0.8); ABS Neutrophils 3.7 10^3/ul (1.5-7.7); Eosinophil % 6.2 %; Hematocrit 31 % (42-52); Hemoglobin 10.3 g/dL (14.0-18.0); Lymphocyte % 13.7 %; Mean Corpuscular HGB Conc 33 g/dL (31-36); Mean Corpuscular Hemoglobin 30 pg (27-31); Mean Corpuscular Volume 91 fL (80-94); Mean Platelet Volume 6.5 fL (7.4-10.4); Nucleated Red Blood Cells % 0.2; Platelet Count 259 10^3/uL (150-450); Red Blood Count 3.41 10^6 /uL (4.18-5.48); Red Cell Distribution Width 16 % (10-15); White Blood Count 5.1 10^3/uL (3.5-10.8)
[2018-11-27 13:47] LABS: BUN/Creatinine Ratio 21.7 (8-20); Calcium 8.5 mg/dL (8.6-10.3); EGFR African American 140.1 (>60); EGFR Non-African American 115.8 (>60); Magnesium 1.9 mg/dL (1.9-2.7); Potassium 4.2 mmol/L (3.5-5.0)
[2018-11-27] MEDS: Vancomycin(*) 1,250 MG in NS 0.9% 250 ML* 250 ML IVPB SCH ×2 (14:36→15:12)
--- NOTE | 2018-11-27 16:53 | PN ---
Subjective Date of Service: 11/27/18 Interval History: Patient denies any complaints today. Patient denies F/C, CP, SOB, Dizziness, N/V , abdominal pain, diarrhea, dysuria, or other pain. Family History: Unchanged from Admission Social History: Unchanged from Admission Past Medical History: Unchanged from Admission Objective Active Medications: Hydrocodone Bitart/Acetaminophen ([place] 5-325 Tab*) 1 tab PO Q4H PRN PRN Reason: PAIN - SEVERE Last Admin: 11/27/18 16:25 Dose: 1 tab Alprazolam (Xanax Tab*) 0.25 mg PO BID PRN PRN Reason: AGITATION/ANXIETY Last Admin: 11/27/18 08:53 Dose: 0.25 mg Amlodipine Besylate (Norvasc Tab*) 10 mg PO DAILY [facility] Last Admin: 11/27/18 08:54 Dose: 10 mg Amoxicillin/Clavulanate Potassium (Augmentin Tab*) 500 mg PO BID [facility] Stop: 11/28/18 15:59 Last Admin: 11/27/18 08:52 Dose: 500 mg Aspirin (Aspirin Ec Tab*) 81 mg PO DAILY [facility] Last Admin: 11/27/18 08:53 Dose: 81 mg Atorvastatin Calcium (Lipitor*) 80 mg PO DAILY [facility] Last Admin: 11/27/18 08:52 Dose: 80 mg Clopidogrel Bisulfate (Plavix Tab*) 75 mg PO DAILY [facility] Last Admin: 11/27/18 08:52 Dose: 75 mg Divalproex Sodium (Depakote Sprinkle Cap*) 125 mg PO BID [facility] Last Admin: 11/27/18 08:53 Dose: 125 mg Enoxaparin Sodium (Lovenox(*)) 40 mg SUBCUT BEDTIME [facility] Last Admin: 11/26/18 20:11 Dose: 40 mg Famotidine (Pepcid Tab*) 20 mg PO DAILY [facility] Last Admin: 11/27/18 08:55 Dose: 20 mg Fluticasone Propionate (Flonase Nasal [place] 50mcg*) 1 spray BOTH NARES DAILY [facility] Last Admin: 11/27/18 08:55 Dose: 1 spray Folic Acid (Folvite Tab*) 1 mg PO DAILY [facility] Last Admin: 11/27/18 08:52 Dose: 1 mg Furosemide (Lasix Tab*) 20 mg PO DAILY@0900 [facility] Last Admin: 11/27/18 08:51 Dose: 20 mg Glycerin (Glycerin Adult Supp*) 1 supp AL DAILY PRN PRN Reason: CONSTIPATION Last Admin: 11/26/18 10:15 Dose: 1 supp Vancomycin HCl 1,250 mg/ (Sodium Chloride) 250 mls @ 166.667 mls/hr IVPB 0200, 1400 [facility] Last Admin: 11/27/18 15:12 Dose: 166.667 mls/hr Lidocaine (Lidoderm 5% Patch*) 2 patch TRANSDERM DAILY [facility] Last Admin: 11/27/18 08:55 Dose: 2 patch Lorazepam (Ativan Inj*) 1 mg IV PUSH Q6H PRN PRN Reason: ANXIETY Last Admin: 11/27/18 11:43 Dose: 1 mg Magnesium Hydroxide (Milk Of Magnesia Liq*) 30 ml PO DAILY PRN PRN Reason: CONSTIPATION Last Admin: 11/27/18 08:55 Dose: 30 ml Melatonin (Melatonin) 3 mg PO BEDTIME [facility] Last Admin: 11/26/18 20:10 Dose: 3 mg Metoprolol Succinate (Toprol Xl Tab*) 150 mg PO DAILY [facility] Last Admin: 11/27/18 08:51 Dose: 150 mg Miscellaneous (Ativan Pyxis Robles) 1 ea N/A .ATIVAN IV ROBLES PRN PRN Reason: PYXIS ROBLES Pantoprazole Sodium (Protonix Tab*) 40 mg PO DAILY [facility] Last Admin: 11/27/18 08:52 Dose: 40 mg Pharmacy Consult (Vancomycin Per Pharmacy*) 1 note FOLLOW UP .VANC PER PHARMACY [facility]; Protocol Pharmacy Profile Note (Lidocaine Patch Remove*) 2 note PATCH OFF BEDTIME [facility] Last Admin: 11/26/18 20:12 Dose: 2 note Pharmacy Profile Note (Vancomycin Trough Check) 1 note FOLLOW UP 1330 ONE Stop: 11/29/18 13:31 Potassium Chloride (Klor Con Er Tab*) 20 meq PO DAILY@0900 [facility] Last Admin: 11/27/18 08:54 Dose: 20 meq Senna (Senokot 8.6 Mg Tab*) 1 tab PO QPM PRN PRN Reason: CONSTIPATION Last Admin: 11/25/18 16:29 Dose: 1 tab Sertraline HCl (Zoloft*) 25 mg PO BID@0900,2100 [facility] Last Admin: 11/27/18 08:54 Dose: 25 mg Sodium Biphosphate/Sodium Phosphate (Fleet Enema*) 1 bottle AL DAILY PRN PRN Reason: CONSTIPATION Tamsulosin HCl (Flomax Cap*) 0.4 mg PO BEDTIME [facility] Last Admin: 11/26/18 20:10 Dose: 0.4 mg Thiamine HCl (Vitamin B-1 Tab*) 100 mg PO DAILY [facility] Last Admin: 11/27/18 08:54 Dose: 100 mg Tramadol HCl (Ultram*) 50 mg PO Q6HR PRN PRN Reason: PAIN - MODERATE Last Admin: 11/26/18 02:58 Dose: 50 mg Trazodone HCl (Desyrel Tab*) 100 mg PO BEDTIME PRN PRN Reason: INSOMNIA Last Admin: 11/26/18 20:11 Dose: 100 mg Vital Signs - 8 hr 11/27/18 11/27/18 11/27/18 08:53 10:34 11:42 Respiratory 16 18 22 Rate 11/27/18 11/27/18 11:43 16:25 Respiratory 22 18 Rate Oxygen Devices in Use Now: None Appearance: Patient is a 62yo male who appears stated age and is sitting in the bed in [facility]. Eyes: No Scleral Icterus, PERRLA Ears/Nose/Mouth/Throat: NL Teeth, Lips, Gums, Clear Oropharnyx, Mucous Membranes Moist Neck: NL Appearance and Movements; NL JVP, Trachea Midline Respiratory: Symmetrical Chest Expansion and Respiratory Effort, Clear to Auscultation Cardiovascular: NL Sounds; No Murmurs; No JVD, RRR, No Edema Abdominal: NL Sounds; No Tenderness; No Distention, No Hepatosplenomegaly Lymphatic: No Cervical Adenopathy Extremities: No Edema, No Clubbing, Cyanosis Skin: No Rash or Ulcers, No Nodules or Sclerosis Neurological: - - Alert and oriented only to self. Result Diagrams: 11/27/18 13:10 11/27/18 13:10 Additional Lab and Data: Above labs were pulled into the note when edited prior to signing, below are the labs from the day of consultation. Laboratory Tests 11/17/18 11/19/18 11/21/18 19:14 10:55 12:04 WBC 7.5 Hgb 9.7 L Hct 29 L Plt Count 280 Sodium 128 L Potassium 4.8 Chloride 99 L Carbon Dioxide 21 L BUN 20 Creatinine 0.69 Glucose 93 C-Reactive Protein 16.02 H Total Protein 5.9 L Albumin 3.0 L Microbiology and Other Data: Microbiology 11/17/18 19:49 Aerobic Blood Culture - Preliminary Blood Venous No Growth Day 2 Anaerobic Blood Culture - Preliminary No Growth Day 2 11/17/18 19:49 Aerobic Blood Culture - Preliminary Blood Venous No Growth Day 2 Anaerobic Blood Culture - Preliminary No Growth Day 2 11/18/18 00:00 Nasal Screen MRSA (PCR) - Final Nasal Mrsa Not Detected Diagnostic Imaging: Exam Date: 11/17/18 1859 - FOOT LEFT 3+ VWS IMPRESSION: 1. Subcutaneous emphysema about the distal first phalanx with no clear osseous destruction. 2. No fracture. Exam Date: 11/20/18 0000 - VL LOWER EXT VEINS BILATERAL IMPRESSION: 1. NO RIGHT LOWER EXTREMITY DEEP VEIN THROMBOSIS. 2. NO LEFT LOWER EXTREMITY DEEP VEIN THROMBOSIS. 3. ATHEROSCLEROSIS Assess/Plan/Problems-Billing Assessment: Mr. 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 - Patient Problems (1) Gangrene of left foot Current Visit: Yes Status: Acute Code(s): I96 - GANGRENE, NOT ELSEWHERE CLASSIFIED SNOMED Code(s): 95680646594240916 Comment: - Left great toe drainage culture with MRSA and proteus - Continue vancomycin with goal troughs 15-20, plus augmentin to cover proteus - Drs. Rodriguez and Laxmi consulting - MRI without osteo, per Dr. Rodriguez, CTA shows occlusions to bilateral SFA's that should be treatable. Will plan for attempt at revascularization early next week. Will defer to Dr. Hair for surgical intervention thereafter - Revascularization per Dr. Rodriguez's schedule. - Afebrile, no leukocytosis (2) Acute delirium Current Visit: Yes Status: Acute Code(s): R41.0 - DISORIENTATION, UNSPECIFIED SNOMED Code(s): 9038111 Comment: - Multifactorial, likely combination of CVA with residual deficits, hospitalization and infection - Per niece, patient has had periods of delerium since his stroke in June, but this is the worst she's seen. Discussed possibility of new stroke, given carotid occlusions, however, patient cannot tolerate sitting for long periods and cannot follow commands for MRI, and patient is already on DAPT and statin and optimized medically - Urgent need would be to continue to treat infection, prevent bacteremia/ sepsis and to identify surgical plan while continuing symptom management - Continue prn ativan for agitation - Should improve after hospitalization and infection improved. (3) Anemia Current Visit: Yes Status: Acute Code(s): D64.9 - ANEMIA, UNSPECIFIED SNOMED Code(s): 176853002 Comment: - Stable - Suspect anemia of chronic disease due to foot infection (4) Anxiety Current Visit: Yes Status: Acute Code(s): F41.9 - ANXIETY DISORDER, UNSPECIFIED SNOMED Code(s): 72580664 Comment: - Continue zoloft and prn xanax (5) GERD (gastroesophageal reflux disease) Current Visit: Yes Status: Acute Code(s): K21.9 - GASTRO-ESOPHAGEAL REFLUX DISEASE WITHOUT ESOPHAGITIS SNOMED Code(s): 734574075 Comment: - Continue pantoprazole (6) History of CVA with residual deficit Current Visit: Yes Status: Acute Code(s): I69.30 - UNSPECIFIED SEQUELAE OF CEREBRAL INFARCTION SNOMED Code(s): 039079927 Comment: - Baseline residual right sided hemiparesis and chronic encephalopathic changes /dementia - Reportedly with 100% bilat carotid stenosis, will check this in records - Continue aspirin, Plavix - Continue depakote sprinkles, xanax, SSRI and ativan PRN - Paradoxical reaction to haldol, do not recommend continuing - Pending records from [place] (7) Hyperlipidemia Current Visit: Yes Status: Acute Code(s): E78.5 - HYPERLIPIDEMIA, UNSPECIFIED SNOMED Code(s): 78001381 Comment: - Continue atorvastatin (8) Hypertension Current Visit: Yes Status: Acute Code(s): I10 - ESSENTIAL (PRIMARY) HYPERTENSION SNOMED Code(s): 79805715 Comment: - Normotensive, SBP 100s-120s - Continue metoprolol, amlodipine (9) Lower extremity edema Current Visit: Yes Status: Acute Code(s): R60.0 - LOCALIZED EDEMA SNOMED Code(s): 679968047 Comment: - With associated wounds, new in the last 2 months - ? Related to venous stasis - LE US unremarkable except for atherosclerosis - Echo unremarkable - Continue furosemide (10) DNR (do not resuscitate) Current Visit: Yes Status: Acute Comment: (11) DVT prophylaxis Current Visit: Yes Status: Acute Code(s): Z29.9 - ENCOUNTER FOR PROPHYLACTIC MEASURES, UNSPECIFIED SNOMED Code(s): 672854943 Comment: - Lovenox Status and Disposition: Inpatient, awaiting MRI. Anticipate d/c back to [place] when medically stable after multiple procedures.
[2018-11-27] MEDS: Enoxaparin(*) 40 MG/0.4 ML SYR SUBCUT SCH (22:19)
[2018-11-27] MEDS: Melatonin 3 MG TAB PO SCH (22:20)
[2018-11-27] MEDS: Tamsulosin CAP* 0.4 MG PO SCH (22:21)
[2018-11-27] MEDS: Senna TAB 8.6 mg* TAB PO PRN (22:34)
[2018-11-27] MEDS: traZODone TAB* 100 MG PO PRN (22:34)
[2018-11-27] MEDS: Lidocaine Patch REMOVE* 1 NOTE MISC PATCH OFF SCH (22:45)
[2018-11-28] MEDS: Vancomycin(*) 1,250 MG in NS 0.9% 250 ML* 250 ML IVPB SCH ×2 (02:00→14:27)
[2018-11-28] MEDS: LORazepam INJ* 2 MG/ML 1 ML VIAL IV PUSH PRN ×2 (02:17→15:54)
[2018-11-28] MEDS: HYDROcodone/ACETAMIN 5-325 MG* 1 TAB PO PRN ×3 (05:04→15:00)
[2018-11-28] MEDS: Lidocaine PATCH 5%* 1 PATCH TRANSDERM SCH (08:16)
[2018-11-28] MEDS: Magnesium Hydroxide LIQ* 30 ML UDC PO PRN (08:16)
[2018-11-28] MEDS: Metoprolol Succinate XL TAB* 50 MG PO SCH (08:17)
[2018-11-28] MEDS: Famotidine TAB* 20 MG PO SCH (08:17)
[2018-11-28] MEDS: Senna TAB 8.6 mg* TAB PO PRN (08:17)
[2018-11-28] MEDS: Amoxicillin/Clavulanate TAB* 500 MG PO SCH (08:17)
[2018-11-28] MEDS: Divalproex Sprinkle CAP* 125 MG PO SCH ×2 (08:17→20:55)
[2018-11-28] MEDS: Pantoprazole TAB * 40 MG TAB PO SCH (08:18)
[2018-11-28] MEDS: Folic Acid TAB* 1 MG PO SCH (08:18)
[2018-11-28] MEDS: Aspirin EC TAB* 81 MG TAB.EC PO SCH (08:18)
[2018-11-28] MEDS: Clopidogrel TAB* 75 MG PO SCH (08:18)
[2018-11-28] MEDS: Atorvastatin* 80 MG TAB PO SCH (08:18)
[2018-11-28] MEDS: Potassium Chlor TAB* 20 MEQ TAB.ER PO SCH (08:18)
[2018-11-28] MEDS: amLODIPine TAB* 5 MG PO SCH (08:18)
[2018-11-28] MEDS: Thiamine TAB* 100 MG TAB PO SCH (08:18)
[2018-11-28] MEDS: Sertraline* 25 MG TAB PO SCH ×2 (08:18→20:54)
[2018-11-28] MEDS: Furosemide TAB* 20 MG PO SCH (08:19)
[2018-11-28] MEDS ORDERED: traZODone TAB* 100 MG PO PRN (08:44)
[2018-11-28] MEDS: ALPRAZolam TAB* 0.25 MG PO PRN (10:59)
--- NOTE | 2018-11-28 13:40 | PN ---
Progress Note - Progress Note Date of Service: 11/28/18 SOAP: Subjective: []I saw Alex today, he does not communicate with me or participate in exam. He has been afebrile and WBC WNL Objective: []Gen: NAD, sedated though kicks when his left foot is examined Left foot: No erythema or edema. Dry grangrene of 4th toe. Toes 2-5 dusky distally. Great toe without any active purulence. Dorsal lateral foot with dry superficial ulcer. Heel ulcer dry and appears superficial. DP pulse not palpable. Assessment: [] Left foot dry gangrene Plan: []Cont IV abx per medicine Await vas intervention at which time ortho intervention can be considered. He does not have systemic illness to warrant urgent amputation. Vital Signs Temp 97.2 F 11/28/18 12:00 Pulse 64 11/28/18 12:00 Resp 16 11/28/18 12:00 BP 124/67 11/28/18 12:00 Pulse Ox 98 11/28/18 12:00 Intake & Output 11/27/18 11/28/18 11/28/18 18:59 06:59 18:59 Intake Total 360 312 120 Balance 360 312 120 Intake: IVPB 312 ABX - VANCOMYCIN 312 Oral 360 0 120 Other: Estimated Void Large # Bowel Movements 0 # Voids 1 Laboratory Last Values WBC 5.1 10^3/uL (3.5-10.8) 11/27/18 13:10 RBC 3.41 10^6 /uL (4.18-5.48) L 11/27/18 13:10 Hgb 10.3 g/dL (14.0-18.0) L 11/27/18 13:10 Hct 31 % (42-52) L 11/27/18 13:10 MCV 91 fL (80-94) 11/27/18 13:10 MCH 30 pg (27-31) 11/27/18 13:10 MCHC 33 g/dL (31-36) 11/27/18 13:10 RDW 16 % (10-15) H 11/27/18 13:10 Plt Count 259 10^3/uL (150-450) 11/27/18 13:10 MPV 6.5 fL (7.4-10.4) L 11/27/18 13:10 Neut % (Auto) 71.9 % 11/27/18 13:10 Lymph % (Auto) 13.7 % 11/27/18 13:10 [place] % (Auto) 7.7 % 11/27/18 13:10 Eos % (Auto) 6.2 % 11/27/18 13:10 Baso % (Auto) 0.5 % 11/27/18 13:10 Absolute Neuts (auto) 3.7 10^3/ul (1.5-7.7) 11/27/18 13:10 Absolute Lymphs (auto) 0.7 10^3/ul (1.0-4.8) L 11/27/18 13:10 Absolute Monos (auto) 0.4 10^3/ul (0-0.8) 11/27/18 13:10 Absolute Eos (auto) 0.3 10^3/ul (0-0.6) 11/27/18 13:10 Absolute Basos (auto) 0.0 10^3/ul (0-0.2) 11/27/18 13:10 Absolute Nucleated RBC 0.0 10^3/ul 11/27/18 13:10 Nucleated RBC % 0.2 11/27/18 13:10 INR (Anticoag Therapy) 1.06 (0.82-1.09) 11/23/18 05:58 APTT 38.0 seconds (26.0-38.0) 11/17/18 19:14 Sodium 133 mmol/L (135-145) L 11/27/18 13:10 Potassium 4.2 mmol/L (3.5-5.0) 11/27/18 13:10 Chloride 99 mmol/L (101-111) L 11/27/18 13:10 Carbon Dioxide 28 mmol/L (22-32) 11/27/18 13:10 Anion Gap 6 mmol/L (2-11) 11/27/18 13:10 BUN 15 mg/dL (6-24) 11/27/18 13:10 Creatinine 0.69 mg/dL (0.67-1.17) 11/27/18 13:10 Est GFR ( Amer) 140.1 (>60) 11/27/18 13:10 Est GFR (Non-Af Amer) 115.8 (>60) 11/27/18 13:10 BUN/Creatinine Ratio 21.7 (8-20) H 11/27/18 13:10 Glucose 102 mg/dL (70-100) H 11/27/18 13:10 Lactic Acid 2.0 mmol/L (0.5-2.0) 11/17/18 22:39 Calcium 8.5 mg/dL (8.6-10.3) L 11/27/18 13:10 Magnesium 1.9 mg/dL (1.9-2.7) 11/27/18 13:10 Iron 39 ug/dL (50-212) L 11/18/18 05:33 TIBC 252 mcg/dL (250-450) 11/18/18 05:33 % Saturation 15 % (15-55) 11/18/18 05:33 Unsat Iron Binding < 237 ug/dL 11/18/18 05:33 Transferrin 180 mg/dL (203-362) L 11/18/18 05:33 Ferritin 257.2 ng/mL (24-336) 11/18/18 05:33 Total Bilirubin 0.20 mg/dL (0.2-1.0) 11/25/18 05:26 AST 14 U/L (13-39) 11/25/18 05:26 ALT 30 U/L (7-52) 11/25/18 05:26 Alkaline Phosphatase 69 U/L (34-104) 11/25/18 05:26 Ammonia 46 mcmol/L (16-53) 11/17/18 22:39 Troponin I 0.00 ng/mL (<0.04) 11/17/18 22:41 C-Reactive Protein 14.13 mg/L (<8.01) H 11/25/18 05:26 Total Protein 6.4 g/dL (6.4-8.9) 11/25/18 05:26 Albumin 3.3 g/dL (3.2-5.2) 11/25/18 05:26 Globulin 3.1 g/dL (2-4) 11/25/18 05:26 Albumin/Globulin Ratio 1.1 (1-3) 11/25/18 05:26 Vitamin B12 247 pg/mL (180-914) 11/18/18 05:33 Folate 19.14 ng/mL (>3.99) 11/18/18 05:33 Urine Color Straw 11/18/18 09:15 Urine Appearance Clear 11/18/18 09:15 Urine pH 7.0 (5-9) 11/18/18 09:15 Ur Specific [place] 1.009 (1.010-1.030) L 11/18/18 09:15 Urine Protein Negative (Negative) 11/18/18 09:15 Urine Ketones Negative (Negative) 11/18/18 09:15 Urine Blood Negative (Negative) 11/18/18 09:15 Urine Nitrate Negative (Negative) 11/18/18 09:15 Urine Bilirubin Negative (Negative) 11/18/18 09:15 Urine Urobilinogen Negative (Negative) 11/18/18 09:15 Ur Leukocyte Esterase Negative (Negative) 11/18/18 09:15 Urine Glucose Negative (Negative) 11/18/18 09:15 Vancomycin Trough 12.0 mcg/mL 11/27/18 13:10 Serum Alcohol < 10 mg/dL (<10) 11/17/18 19:14 Group A Strep Rapid Positive (Negative) A 11/18/18 14:20
[2018-11-28] MEDS ORDERED: Lorazepam PYXIS KEY PRN (15:13)
--- NOTE | 2018-11-28 18:54 | PN ---
Subjective Date of Service: 11/28/18 Interval History: Occasional agitation and delirium, at baseline. Noted to be on 2 benzos - will DC one and monitor mental status. Also will start quetiapine tonight. Pt not participating in interview today. Pending plan from IR. Objective Active Medications: Hydrocodone Bitart/Acetaminophen ([place] 5-325 Tab*) 1 tab PO Q4H PRN PRN Reason: PAIN - SEVERE Last Admin: 11/28/18 15:00 Dose: 1 tab Amlodipine Besylate (Norvasc Tab*) 10 mg PO DAILY [facility] Last Admin: 11/28/18 08:18 Dose: 10 mg Aspirin (Aspirin Ec Tab*) 81 mg PO DAILY [facility] Last Admin: 11/28/18 08:18 Dose: 81 mg Atorvastatin Calcium (Lipitor*) 80 mg PO DAILY [facility] Last Admin: 11/28/18 08:18 Dose: 80 mg Clopidogrel Bisulfate (Plavix Tab*) 75 mg PO DAILY [facility] Last Admin: 11/28/18 08:18 Dose: 75 mg Divalproex Sodium (Depakote Sprinkle Cap*) 125 mg PO BID [facility] Last Admin: 11/28/18 08:17 Dose: 125 mg Enoxaparin Sodium (Lovenox(*)) 40 mg SUBCUT BEDTIME [facility] Last Admin: 11/27/18 22:19 Dose: 40 mg Famotidine (Pepcid Tab*) 20 mg PO DAILY PRN PRN Reason: HEARTBURN Fluticasone Propionate (Flonase Nasal [place] 50mcg*) 1 spray BOTH NARES DAILY [facility] Last Admin: 11/27/18 08:55 Dose: 1 spray Folic Acid (Folvite Tab*) 1 mg PO DAILY [facility] Last Admin: 11/28/18 08:18 Dose: 1 mg Furosemide (Lasix Tab*) 20 mg PO DAILY@0900 [facility] Last Admin: 11/28/18 08:19 Dose: 20 mg Glycerin (Glycerin Adult Supp*) 1 supp NE DAILY PRN PRN Reason: CONSTIPATION Last Admin: 11/26/18 10:15 Dose: 1 supp Vancomycin HCl 1,250 mg/ (Sodium Chloride) 250 mls @ 166.667 mls/hr IVPB 0200, 1400 [facility] Last Admin: 11/28/18 14:27 Dose: 166.667 mls/hr Lidocaine (Lidoderm 5% Patch*) 2 patch TRANSDERM DAILY [facility] Last Admin: 11/28/18 08:16 Dose: 2 patch Lorazepam (Ativan Inj*) 1 mg IV PUSH Q6H PRN PRN Reason: Anxiety or Agitation Last Admin: 11/28/18 15:54 Dose: 1 mg Magnesium Hydroxide (Milk Of Magnesia Liq*) 30 ml PO DAILY PRN PRN Reason: CONSTIPATION Last Admin: 11/28/18 08:16 Dose: 30 ml Melatonin (Melatonin) 3 mg PO BEDTIME [facility] Last Admin: 11/27/18 22:20 Dose: 3 mg Metoprolol Succinate (Toprol Xl Tab*) 150 mg PO DAILY [facility] Last Admin: 11/28/18 08:17 Dose: 150 mg Miscellaneous (Ativan Pyxis Tello) 1 ea N/A .ATIVAN IV TELLO PRN PRN Reason: PYXIS TELLO Pharmacy Consult (Vancomycin Per Pharmacy*) 1 note FOLLOW UP .VANC PER PHARMACY [facility]; Protocol Pharmacy Profile Note (Lidocaine Patch Remove*) 2 note PATCH OFF BEDTIME [facility] Last Admin: 11/27/18 22:45 Dose: 2 note Pharmacy Profile Note (Vancomycin Trough Check) 1 note FOLLOW UP 1330 ONE Stop: 11/29/18 13:31 Potassium Chloride (Klor Con Er Tab*) 20 meq PO DAILY@0900 [facility] Last Admin: 11/28/18 08:18 Dose: 20 meq Quetiapine Fumarate (Seroquel Tab*) 25 mg PO BEDTIME [facility] Senna (Senokot 8.6 Mg Tab*) 1 tab PO QPM PRN PRN Reason: CONSTIPATION Last Admin: 11/28/18 08:17 Dose: 1 tab Sertraline HCl (Zoloft*) 25 mg PO BID@0900,2100 [facility] Last Admin: 11/28/18 08:18 Dose: 25 mg Sodium Biphosphate/Sodium Phosphate (Fleet Enema*) 1 bottle NE DAILY PRN PRN Reason: CONSTIPATION Tamsulosin HCl (Flomax Cap*) 0.4 mg PO BEDTIME [facility] Last Admin: 11/27/18 22:21 Dose: 0.4 mg Thiamine HCl (Vitamin B-1 Tab*) 100 mg PO DAILY [facility] Last Admin: 11/28/18 08:18 Dose: 100 mg Tramadol HCl (Ultram*) 50 mg PO Q6HR PRN PRN Reason: PAIN - MODERATE Last Admin: 11/26/18 02:58 Dose: 50 mg Trazodone HCl (Desyrel Tab*) 100 mg PO BEDTIME PRN PRN Reason: INSOMNIA Vital Signs - 8 hr 11/28/18 11/28/18 11/28/18 10:59 11:05 12:00 Temperature 97.2 F Pulse Rate 64 Respiratory 16 16 16 Rate Blood Pressure 124/67 (mmHg) O2 Sat by Pulse 98 Oximetry 11/28/18 11/28/18 11/28/18 13:45 15:00 15:54 Temperature Pulse Rate Respiratory 16 18 18 Rate Blood Pressure (mmHg) O2 Sat by Pulse Oximetry 11/28/18 11/28/18 11/28/18 16:00 17:00 17:41 Temperature 97.8 F Pulse Rate 65 Respiratory 18 18 18 Rate Blood Pressure 146/76 (mmHg) O2 Sat by Pulse 100 Oximetry Oxygen Devices in Use Now: None Appearance: anxious appearing but otherwise NAD Eyes: No Scleral Icterus Ears/Nose/Mouth/Throat: Clear Oropharnyx, Mucous Membranes Moist Neck: NL Appearance and Movements; NL JVP, Trachea Midline Respiratory: Symmetrical Chest Expansion and Respiratory Effort, Clear to Auscultation Cardiovascular: NL Sounds; No Murmurs; No JVD, RRR Abdominal: - - no grimace to palpation Extremities: No Edema Neurological: - - can say name, no other responses to questions Result Diagrams: 11/27/18 13:10 11/27/18 13:10 Additional Lab and Data: Above labs were pulled into the note when edited prior to signing, below are the labs from the day of consultation. Laboratory Tests 11/17/18 11/19/18 11/21/18 19:14 10:55 12:04 WBC 7.5 Hgb 9.7 L Hct 29 L Plt Count 280 Sodium 128 L Potassium 4.8 Chloride 99 L Carbon Dioxide 21 L BUN 20 Creatinine 0.69 Glucose 93 C-Reactive Protein 16.02 H Total Protein 5.9 L Albumin 3.0 L Microbiology and Other Data: Microbiology 11/17/18 19:49 Aerobic Blood Culture - Preliminary Blood Venous No Growth Day 2 Anaerobic Blood Culture - Preliminary No Growth Day 2 11/17/18 19:49 Aerobic Blood Culture - Preliminary Blood Venous No Growth Day 2 Anaerobic Blood Culture - Preliminary No Growth Day 2 11/18/18 00:00 Nasal Screen MRSA (PCR) - Final Nasal Mrsa Not Detected Diagnostic Imaging: Exam Date: 11/17/18 1859 - FOOT LEFT 3+ VWS IMPRESSION: 1. Subcutaneous emphysema about the distal first phalanx with no clear osseous destruction. 2. No fracture. Exam Date: 11/20/18 0000 - VL LOWER EXT VEINS BILATERAL IMPRESSION: 1. NO RIGHT LOWER EXTREMITY DEEP VEIN THROMBOSIS. 2. NO LEFT LOWER EXTREMITY DEEP VEIN THROMBOSIS. 3. 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 - Patient Problems (1) Gangrene of left foot Comment: Left great toe drainage culture with MRSA and proteus - Continue vancomycin with goal troughs 15-20, plus augmentin to cover proteus - Drs. Rodriguez and Laxmi consulting - MRI without osteo, per Dr. Rodriguez, CTA shows occlusions to bilateral SFA's that should be treatable. Will plan for attempt at revascularization early next week. Will defer to Dr. Hair for surgical intervention thereafter - Revascularization per Dr. Rodriguez's schedule (2) Acute delirium Comment: Multifactorial, likely combination of CVA with residual deficits, hospitalization and infection. Per niece, patient has had periods of delerium since his stroke in June, but this is the worst she's seen. Discussed possibility of new stroke, given carotid occlusions, however, patient cannot tolerate sitting for long periods and cannot follow commands for MRI, and patient is already on DAPT and statin and optimized medically - Urgent need would be to continue to treat infection, prevent bacteremia/ sepsis and to identify surgical plan while continuing symptom management - Continue prn ativan for severe agitation - initiate quetiapine nightly (3) Anemia Comment: - Stable - Suspect anemia of chronic disease due to foot infection (4) Anxiety Comment: - Continue zoloft - Ativan prn only for severe anxiety and agitation, limit use (5) GERD (gastroesophageal reflux disease) Current Visit: Yes Status: Acute Code(s): K21.9 - GASTRO-ESOPHAGEAL REFLUX DISEASE WITHOUT ESOPHAGITIS SNOMED Code(s): 031900682 Comment: - Continue pantoprazole (6) History of CVA with residual deficit Comment: Baseline residual right sided hemiparesis and chronic encephalopathic changes/dementia - Continue aspirin, Plavix - Continue depakote sprinkles, SSRI and ativan PRN (7) Hypertension Comment: - Continue metoprolol, amlodipine (8) Lower extremity edema Comment: - With associated wounds, new in the last 2 months - ? Related to venous stasis - LE US unremarkable except for atherosclerosis - Echo unremarkable - Continue furosemide (9) DVT prophylaxis Current Visit: Yes Comment: - Lovenox (10) DNR (do not resuscitate) Status and Disposition: Inpatient, awaiting MRI. Anticipate d/c back to [place] when medically stable after multiple procedures.
[2018-11-28] MEDS ORDERED: Famotidine TAB* 20 MG PO PRN (19:10)
[2018-11-28] MEDS: Enoxaparin(*) 40 MG/0.4 ML SYR SUBCUT SCH (20:53)
[2018-11-28] MEDS: QUEtiapine TAB* 25 MG PO SCH (20:55)
[2018-11-28] MEDS: Melatonin 3 MG TAB PO SCH (20:55)
[2018-11-28] MEDS: Tamsulosin CAP* 0.4 MG PO SCH (20:56)
[2018-11-28] MEDS: Lidocaine Patch REMOVE* 1 NOTE MISC PATCH OFF SCH (21:00)
[2018-11-29] MEDS: Vancomycin(*) 1,250 MG in NS 0.9% 250 ML* 250 ML IVPB SCH ×2 (02:46→15:34)
[2018-11-29] MEDS: LORazepam INJ* 2 MG/ML 1 ML VIAL IV PUSH PRN ×3 (04:57→22:15)
[2018-11-29] MEDS: traMADol TAB* 50 MG PO PRN ×3 (05:15→20:18)
[2018-11-29] MEDS: Fluticasone NASAL SPRAY 50MCG* 16 gm SPRAY BTL BOTH NARES SCH ×2 (07:56→11:45)
[2018-11-29] MEDS: Sertraline* 25 MG TAB PO SCH ×2 (08:57→20:19)
[2018-11-29] MEDS: Atorvastatin* 80 MG TAB PO SCH (08:57)
[2018-11-29] MEDS: Aspirin EC TAB* 81 MG TAB.EC PO SCH (08:57)
[2018-11-29] MEDS: Folic Acid TAB* 1 MG PO SCH (08:57)
[2018-11-29] MEDS: Thiamine TAB* 100 MG TAB PO SCH (08:57)
[2018-11-29] MEDS: Potassium Chlor TAB* 20 MEQ TAB.ER PO SCH (08:57)
[2018-11-29] MEDS: Lidocaine PATCH 5%* 1 PATCH TRANSDERM SCH (08:57)
[2018-11-29] MEDS: Clopidogrel TAB* 75 MG PO SCH (08:58)
[2018-11-29] MEDS: Furosemide TAB* 20 MG PO SCH (08:58)
[2018-11-29] MEDS: amLODIPine TAB* 5 MG PO SCH (08:58)
[2018-11-29] MEDS: Metoprolol Succinate XL TAB* 50 MG PO SCH (08:58)
[2018-11-29] MEDS: Acetaminophen TAB* 325 MG PO PRN (11:45)
[2018-11-29] MEDS: Divalproex Sprinkle CAP* 125 MG PO SCH ×2 (11:46→20:19)
[2018-11-29] MEDS: Magnesium Hydroxide LIQ* 30 ML UDC PO PRN (13:29)
[2018-11-29] MEDS ORDERED: Vancomycin Trough Check NOTE FOLLOW UP ONE (13:30)
--- NOTE | 2018-11-29 17:15 | PN ---
Subjective Date of Service: 11/29/18 Interval History: Pt responded well to initiation of quetiapine last night. Less agitation today. Stopped alprazolam yesterday and only continuing lorazepam prns. Does occasionally complain of pain to feet. Discussed revasc with IR - plan for OR on Tuesday. Discussed plan with Christina (brayan , HCP) and all questions answered. Objective Active Medications: Acetaminophen (Tylenol Tab*) 975 mg PO Q8H PRN PRN Reason: PAIN - MILD Last Admin: 11/29/18 11:45 Dose: 975 mg Amlodipine Besylate (Norvasc Tab*) 10 mg PO DAILY [facility] Last Admin: 11/29/18 08:58 Dose: 10 mg Aspirin (Aspirin Ec Tab*) 81 mg PO DAILY [facility] Last Admin: 11/29/18 08:57 Dose: 81 mg Atorvastatin Calcium (Lipitor*) 80 mg PO DAILY [facility] Last Admin: 11/29/18 08:57 Dose: 80 mg Clopidogrel Bisulfate (Plavix Tab*) 75 mg PO DAILY [facility] Last Admin: 11/29/18 08:58 Dose: 75 mg Divalproex Sodium (Depakote Sprinkle Cap*) 125 mg PO BID [facility] Last Admin: 11/29/18 11:46 Dose: 125 mg Enoxaparin Sodium (Lovenox(*)) 40 mg SUBCUT BEDTIME [facility] Last Admin: 11/28/18 20:53 Dose: 40 mg Famotidine (Pepcid Tab*) 20 mg PO DAILY PRN PRN Reason: HEARTBURN Fluticasone Propionate (Flonase Nasal [place] 50mcg*) 1 spray BOTH NARES DAILY [facility] Last Admin: 11/29/18 11:45 Dose: 1 spray Folic Acid (Folvite Tab*) 1 mg PO DAILY [facility] Last Admin: 11/29/18 08:57 Dose: 1 mg Glycerin (Glycerin Adult Supp*) 1 supp MO DAILY PRN PRN Reason: CONSTIPATION Last Admin: 11/26/18 10:15 Dose: 1 supp Vancomycin HCl 1,000 mg/ (Sodium Chloride) 250 mls @ 166.667 mls/hr IVPB Q8HR [facility] Lidocaine (Lidoderm 5% Patch*) 2 patch TRANSDERM DAILY [facility] Last Admin: 11/29/18 08:57 Dose: 2 patch Lorazepam (Ativan Inj*) 1 mg IV PUSH Q6H PRN PRN Reason: Anxiety or Agitation Last Admin: 11/29/18 17:25 Dose: 1 mg Magnesium Hydroxide (Milk Of Magnesia Liq*) 30 ml PO DAILY PRN PRN Reason: CONSTIPATION Last Admin: 11/29/18 13:29 Dose: 30 ml Melatonin (Melatonin) 3 mg PO BEDTIME [facility] Last Admin: 11/28/18 20:55 Dose: 3 mg Metoprolol Succinate (Toprol Xl Tab*) 150 mg PO DAILY [facility] Last Admin: 11/29/18 08:58 Dose: 150 mg Miscellaneous (Ativan Pyxis Tello) 1 ea N/A .ATIVAN IV TELLO PRN PRN Reason: PYXIS TELLO Pharmacy Consult (Vancomycin Per Pharmacy*) 1 note FOLLOW UP .VANC PER PHARMACY [facility]; Protocol Pharmacy Profile Note (Lidocaine Patch Remove*) 2 note PATCH OFF BEDTIME [facility] Last Admin: 11/28/18 21:00 Dose: Not Given Pharmacy Profile Note (Vancomycin Trough Check) 1 note FOLLOW UP ONCE ONE Stop: 12/01/18 05:31 Potassium Chloride (Klor Con Er Tab*) 20 meq PO DAILY@0900 [facility] Last Admin: 11/29/18 08:57 Dose: 20 meq Quetiapine Fumarate (Seroquel Tab*) 25 mg PO BEDTIME [facility] Last Admin: 11/28/18 20:55 Dose: 25 mg Senna (Senokot 8.6 Mg Tab*) 1 tab PO QPM PRN PRN Reason: CONSTIPATION Last Admin: 11/28/18 08:17 Dose: 1 tab Sertraline HCl (Zoloft*) 25 mg PO BID@0900,2100 [facility] Last Admin: 11/29/18 08:57 Dose: 25 mg Tamsulosin HCl (Flomax Cap*) 0.4 mg PO BEDTIME [facility] Last Admin: 11/28/18 20:56 Dose: 0.4 mg Thiamine HCl (Vitamin B-1 Tab*) 100 mg PO DAILY [facility] Last Admin: 11/29/18 08:57 Dose: 100 mg Tramadol HCl (Ultram*) 50 mg PO Q6HR PRN PRN Reason: Pain - Moderate to Severe Last Admin: 11/29/18 13:29 Dose: 50 mg Trazodone HCl (Desyrel Tab*) 50 mg PO BEDTIME PRN PRN Reason: INSOMNIA Vital Signs - 8 hr 11/29/18 11/29/18 11/29/18 11:40 13:29 15:10 Temperature 97.7 F 97.7 F Pulse Rate 62 55 Respiratory 16 16 20 Rate Blood Pressure 121/76 103/62 (mmHg) O2 Sat by Pulse 100 98 Oximetry Oxygen Devices in Use Now: None Appearance: appears older than stated age, frail Eyes: No Scleral Icterus Ears/Nose/Mouth/Throat: Clear Oropharnyx, - - dry mm Neck: NL Appearance and Movements; NL JVP Respiratory: Symmetrical Chest Expansion and Respiratory Effort, Clear to Auscultation Cardiovascular: RRR Extremities: No Edema, - - dry gangrene to some toes of L foot and heel, clean ulcer over dorsum of L foot Neurological: - - sometimes will give 1 word answers to questions; intermittently agitated Result Diagrams: 11/27/18 13:10 11/27/18 13:10 Additional Lab and Data: Above labs were pulled into the note when edited prior to signing, below are the labs from the day of consultation. Laboratory Tests 11/17/18 11/19/18 11/21/18 19:14 10:55 12:04 WBC 7.5 Hgb 9.7 L Hct 29 L Plt Count 280 Sodium 128 L Potassium 4.8 Chloride 99 L Carbon Dioxide 21 L BUN 20 Creatinine 0.69 Glucose 93 C-Reactive Protein 16.02 H Total Protein 5.9 L Albumin 3.0 L Microbiology and Other Data: Microbiology 11/17/18 19:49 Aerobic Blood Culture - Preliminary Blood Venous No Growth Day 2 Anaerobic Blood Culture - Preliminary No Growth Day 2 11/17/18 19:49 Aerobic Blood Culture - Preliminary Blood Venous No Growth Day 2 Anaerobic Blood Culture - Preliminary No Growth Day 2 11/18/18 00:00 Nasal Screen MRSA (PCR) - Final Nasal Mrsa Not Detected Diagnostic Imaging: Exam Date: 11/17/18 1859 - FOOT LEFT 3+ VWS IMPRESSION: 1. Subcutaneous emphysema about the distal first phalanx with no clear osseous destruction. 2. No fracture. Exam Date: 11/20/18 0000 - VL LOWER EXT VEINS BILATERAL IMPRESSION: 1. NO RIGHT LOWER EXTREMITY DEEP VEIN THROMBOSIS. 2. NO LEFT LOWER EXTREMITY DEEP VEIN THROMBOSIS. 3. 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 - Patient Problems (1) Gangrene of left foot Comment: Left great toe drainage culture with MRSA and proteus - Continue vancomycin with goal troughs 15-20, plus augmentin to cover proteus - Drs. Rodriguez and Laxmi consulting - MRI without osteo, per Dr. Rodriguez, CTA shows occlusions to bilateral SFA's that should be treatable, plan for IR intervention 12/01 (2) Acute delirium Comment: Multifactorial, likely combination of CVA with residual deficits, hospitalization, med AE, and infection. Per niece, patient has had periods of delerium since his stroke in June, but this is the worst she's seen. Discussed possibility of new stroke, given carotid occlusions, however, patient cannot tolerate sitting for long periods and cannot follow commands for MRI, and patient is already on DAPT and statin and optimized medically - Urgent need would be to continue to treat infection, prevent bacteremia/ sepsis and to identify surgical plan while continuing symptom management - Continue prn ativan for severe agitation - quetiapine nightly - avoid [place] meds as able (3) Anemia Comment: - Stable - Suspect anemia of chronic disease due to foot infection (4) Anxiety Comment: - Continue zoloft - Ativan prn only for severe anxiety and agitation, limit use (5) GERD (gastroesophageal reflux disease) Current Visit: Yes Status: Acute Code(s): K21.9 - GASTRO-ESOPHAGEAL REFLUX DISEASE WITHOUT ESOPHAGITIS SNOMED Code(s): 370486557 Comment: - Continue pantoprazole (6) History of CVA with residual deficit Comment: Baseline residual right sided hemiparesis and chronic encephalopathic changes/dementia - Continue aspirin, Plavix - Continue depakote sprinkles, SSRI (7) Hypertension Comment: - Continue metoprolol, amlodipine (8) Lower extremity edema Comment: With associated wounds, new in the last 2 months. ? Related to venous stasis. LE US unremarkable except for atherosclerosis. TTE with grade 1 diastolic dsfnx. - dry on exam, will hold furosemide and PO potassium and monitor (9) DVT prophylaxis Current Visit: Yes Comment: - Lovenox (10) DNR (do not resuscitate) Status and Disposition: Inpatient, anticipate d/c back to [place] when medically stable after multiple procedures.
[2018-11-29] MEDS: traZODone TAB* 50 MG TAB PO PRN (20:18)
[2018-11-29] MEDS: Senna TAB 8.6 mg* TAB PO PRN (20:18)
[2018-11-29] MEDS: QUEtiapine TAB* 25 MG PO SCH (20:18)
[2018-11-29] MEDS: Enoxaparin(*) 40 MG/0.4 ML SYR SUBCUT SCH (20:19)
[2018-11-29] MEDS: Melatonin 3 MG TAB PO SCH (20:19)
[2018-11-29] MEDS: Tamsulosin CAP* 0.4 MG PO SCH (20:19)
[2018-11-29] MEDS: Lidocaine Patch REMOVE* 1 NOTE MISC PATCH OFF SCH (20:19)
[2018-11-29] MEDS ORDERED: Ziprasidone IM INJ* 20 MG/ML VIAL IM ONE (20:55)
--- NOTE | 2018-11-29 20:57 | PN ---
Hospitalist Progress Note Date of Service: 11/29/18 Received call from nursing staff, patient is screaming and combative, potential harm to himself and others. Unable to be redirected. 9pm meds were given early with no effect and patient continues to be increasingly agitated with outburst behavior. Discussed with pharmacy, will trial one dose geodon 10mg IM and monitor for effect. Discussed with primary RN.
[2018-11-29] MEDS: Vancomycin(*) 1,000 MG in NS 0.9% 250 ML* 250 ML IVPB SCH (22:15)
[2018-11-30] MEDS: Vancomycin(*) 1,000 MG in NS 0.9% 250 ML* 250 ML IVPB SCH (04:03)
[2018-11-30] MEDS: traMADol TAB* 50 MG PO PRN ×3 (04:14→20:16)
[2018-11-30] MEDS: LORazepam INJ* 2 MG/ML 1 ML VIAL IV PUSH PRN ×3 (04:14→23:01)
[2018-11-30 06:41] LABS: Hematocrit 31 % (42-52); Hemoglobin 10.6 g/dL (14.0-18.0); Mean Corpuscular HGB Conc 34 g/dL (31-36); Mean Corpuscular Hemoglobin 31 pg (27-31); Mean Corpuscular Volume 92 fL (80-94); Platelet Count 240 10^3/uL (150-450); Red Blood Count 3.41 10^6 /uL (4.18-5.48); Red Cell Distribution Width 17 % (10-15); White Blood Count 7.2 10^3/uL (3.5-10.8)
[2018-11-30 06:59] LABS: BUN/Creatinine Ratio 26.7 (8-20); Calcium 8.8 mg/dL (8.6-10.3); EGFR African American 127.3 (>60); EGFR Non-African American 105.2 (>60); Potassium 4.1 mmol/L (3.5-5.0)
--- NOTE | 2018-11-30 08:46 | PN ---
Subjective Date of Service: 11/30/18 Interval History: More combative last night, received Geodon with good effect. However, somnolent all morning. Objective Active Medications: Acetaminophen (Tylenol Tab*) 975 mg PO Q8H PRN PRN Reason: PAIN - MILD Last Admin: 11/29/18 11:45 Dose: 975 mg Amlodipine Besylate (Norvasc Tab*) 10 mg PO DAILY [facility] Last Admin: 11/29/18 08:58 Dose: 10 mg Aspirin (Aspirin Ec Tab*) 81 mg PO DAILY [facility] Last Admin: 11/29/18 08:57 Dose: 81 mg Atorvastatin Calcium (Lipitor*) 80 mg PO DAILY [facility] Last Admin: 11/29/18 08:57 Dose: 80 mg Clopidogrel Bisulfate (Plavix Tab*) 75 mg PO DAILY [facility] Last Admin: 11/29/18 08:58 Dose: 75 mg Divalproex Sodium (Depakote Sprinkle Cap*) 125 mg PO BID [facility] Last Admin: 11/29/18 20:19 Dose: 125 mg Enoxaparin Sodium (Lovenox(*)) 40 mg SUBCUT BEDTIME [facility] Last Admin: 11/29/18 20:19 Dose: 40 mg Famotidine (Pepcid Tab*) 20 mg PO DAILY PRN PRN Reason: HEARTBURN Fluticasone Propionate (Flonase Nasal [place] 50mcg*) 1 spray BOTH NARES DAILY [facility] Last Admin: 11/29/18 11:45 Dose: 1 spray Folic Acid (Folvite Tab*) 1 mg PO DAILY [facility] Last Admin: 11/29/18 08:57 Dose: 1 mg Glycerin (Glycerin Adult Supp*) 1 supp RI DAILY PRN PRN Reason: CONSTIPATION Last Admin: 11/26/18 10:15 Dose: 1 supp Vancomycin HCl 1,000 mg/ (Sodium Chloride) 250 mls @ 166.667 mls/hr IVPB Q8HR [facility] Last Admin: 11/30/18 04:03 Dose: 166.667 mls/hr Lidocaine (Lidoderm 5% Patch*) 2 patch TRANSDERM DAILY [facility] Last Admin: 11/29/18 08:57 Dose: 2 patch Lorazepam (Ativan Inj*) 1 mg IV PUSH Q6H PRN PRN Reason: Anxiety or Agitation Last Admin: 11/30/18 04:14 Dose: 1 mg Magnesium Hydroxide (Milk Of Kenn Liq*) 30 ml PO DAILY PRN PRN Reason: CONSTIPATION Last Admin: 11/29/18 13:29 Dose: 30 ml Melatonin (Melatonin) 3 mg PO BEDTIME [facility] Last Admin: 11/29/18 20:19 Dose: 3 mg Metoprolol Succinate (Toprol Xl Tab*) 150 mg PO DAILY [facility] Last Admin: 11/29/18 08:58 Dose: 150 mg Miscellaneous (Ativan Pyxis Tello) 1 ea N/A .ATIVAN IV TELLO PRN PRN Reason: PYXIS TELLO Pharmacy Consult (Vancomycin Per Pharmacy*) 1 note FOLLOW UP .VANC PER PHARMACY ROJAS; Protocol Pharmacy Profile Note (Lidocaine Patch Remove*) 2 note PATCH OFF BEDTIME [facility] Last Admin: 11/29/18 20:19 Dose: 2 note Pharmacy Profile Note (Vancomycin Trough Check) 1 note FOLLOW UP ONCE ONE Stop: 12/01/18 05:31 Quetiapine Fumarate (Seroquel Tab*) 25 mg PO BEDTIME [facility] Last Admin: 11/29/18 20:18 Dose: 25 mg Senna (Senokot 8.6 Mg Tab*) 1 tab PO QPM PRN PRN Reason: CONSTIPATION Last Admin: 11/29/18 20:18 Dose: 1 tab Sertraline HCl (Zoloft*) 25 mg PO BID@0900,2100 [facility] Last Admin: 11/29/18 20:19 Dose: 25 mg Tamsulosin HCl (Flomax Cap*) 0.4 mg PO BEDTIME [facility] Last Admin: 11/29/18 20:19 Dose: 0.4 mg Thiamine HCl (Vitamin B-1 Tab*) 100 mg PO DAILY [facility] Last Admin: 11/29/18 08:57 Dose: 100 mg Tramadol HCl (Ultram*) 50 mg PO Q6HR PRN PRN Reason: Pain - Moderate to Severe Last Admin: 11/30/18 04:14 Dose: 50 mg Trazodone HCl (Desyrel Tab*) 50 mg PO BEDTIME PRN PRN Reason: INSOMNIA Last Admin: 11/29/18 20:18 Dose: 50 mg Vital Signs - 8 hr 11/30/18 11/30/18 11/30/18 02:38 04:02 04:14 Temperature 96.7 F 97.3 F Pulse Rate 60 Respiratory 16 18 Rate Blood Pressure 140/56 (mmHg) O2 Sat by Pulse 100 Oximetry 11/30/18 11/30/18 05:44 08:00 Temperature 98.2 F Pulse Rate 59 Respiratory 16 14 Rate Blood Pressure 135/63 (mmHg) O2 Sat by Pulse 99 Oximetry Oxygen Devices in Use Now: None Appearance: sleeping, NAD Eyes: No Scleral Icterus Ears/Nose/Mouth/Throat: Clear Oropharnyx, Mucous Membranes Moist Neck: NL Appearance and Movements; NL JVP, Trachea Midline Respiratory: Symmetrical Chest Expansion and Respiratory Effort, Clear to Auscultation Cardiovascular: NL Sounds; No Murmurs; No JVD, RRR Abdominal: NL Sounds; No Tenderness; No Distention, No Hepatosplenomegaly Extremities: No Edema, - - L foot with 3/5 toes with dry gangrene, dorsal L foot with ulceration Neurological: - - opens eyes to name Result Diagrams: 11/30/18 06:14 11/30/18 06:14 Additional Lab and Data: Above labs were pulled into the note when edited prior to signing, below are the labs from the day of consultation. Laboratory Tests 11/17/18 11/19/18 11/21/18 19:14 10:55 12:04 WBC 7.5 Hgb 9.7 L Hct 29 L Plt Count 280 Sodium 128 L Potassium 4.8 Chloride 99 L Carbon Dioxide 21 L BUN 20 Creatinine 0.69 Glucose 93 C-Reactive Protein 16.02 H Total Protein 5.9 L Albumin 3.0 L Microbiology and Other Data: Microbiology 11/17/18 19:49 Aerobic Blood Culture - Preliminary Blood Venous No Growth Day 2 Anaerobic Blood Culture - Preliminary No Growth Day 2 11/17/18 19:49 Aerobic Blood Culture - Preliminary Blood Venous No Growth Day 2 Anaerobic Blood Culture - Preliminary No Growth Day 2 11/18/18 00:00 Nasal Screen MRSA (PCR) - Final Nasal Mrsa Not Detected Diagnostic Imaging: Exam Date: 11/17/18 1859 - FOOT LEFT 3+ VWS IMPRESSION: 1. Subcutaneous emphysema about the distal first phalanx with no clear osseous destruction. 2. No fracture. Exam Date: 11/20/18 0000 - VL LOWER EXT VEINS BILATERAL IMPRESSION: 1. NO RIGHT LOWER EXTREMITY DEEP VEIN THROMBOSIS. 2. NO LEFT LOWER EXTREMITY DEEP VEIN THROMBOSIS. 3. 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 - Patient Problems (1) Gangrene of left foot Comment: Left great toe drainage culture with MRSA and proteus - cont Augmentin only, per ID recs - s/p vanc (11/17 - 11/30) - Drs. Rodriguez and Laxmi consulting - MRI without osteo, per Dr. Rodriguez, CTA shows occlusions to bilateral SFA's that should be treatable, plan for IR intervention 12/01 - possible ortho intervention next week (2) Acute delirium Comment: Multifactorial, likely combination of CVA with residual deficits, hospitalization, med AE, and infection. Per niece, patient has had periods of delerium since his stroke in June, but this is the worst she's seen. Discussed possibility of new stroke, given carotid occlusions, however, patient cannot tolerate sitting for long periods and cannot follow commands for MRI, and patient is already on DAPT and statin and optimized medically - Urgent need would be to continue to treat infection, prevent bacteremia/ sepsis and to identify surgical plan while continuing symptom management - Continue prn ativan for severe agitation - quetiapine nightly - avoid Beers meds as able (3) History of CVA with residual deficit Comment: Baseline residual right sided hemiparesis and chronic encephalopathic changes/dementia - Continue aspirin, Plavix - Continue depakote sprinkles, SSRI (4) Anxiety Comment: - Continue zoloft - Ativan prn only for severe anxiety and agitation, limit use (5) Anemia Comment: - Stable - Suspect anemia of chronic disease due to foot infection (6) GERD (gastroesophageal reflux disease) Current Visit: Yes Status: Acute Code(s): K21.9 - GASTRO-ESOPHAGEAL REFLUX DISEASE WITHOUT ESOPHAGITIS SNOMED Code(s): 930045243 Comment: - Continue pantoprazole (7) Hypertension Comment: - Continue metoprolol, amlodipine (8) Lower extremity edema Comment: With associated wounds, new in the last 2 months. ? Related to venous stasis. LE US unremarkable except for atherosclerosis. TTE with grade 1 diastolic dsfnx. - dry on exam, will hold furosemide and PO potassium and monitor (9) DVT prophylaxis Current Visit: Yes Comment: - Lovenox (10) DNR (do not resuscitate) Status and Disposition: Inpatient, anticipate d/c back to [place] when medically stable after multiple procedures.
[2018-11-30] MEDS: Folic Acid TAB* 1 MG PO SCH (09:31)
[2018-11-30] MEDS: Metoprolol Succinate XL TAB* 50 MG PO SCH (09:31)
[2018-11-30] MEDS: Thiamine TAB* 100 MG TAB PO SCH (09:32)
[2018-11-30] MEDS: Sertraline* 25 MG TAB PO SCH ×2 (09:32→20:15)
[2018-11-30] MEDS: amLODIPine TAB* 5 MG PO SCH (09:32)
[2018-11-30] MEDS: Atorvastatin* 80 MG TAB PO SCH (09:32)
[2018-11-30] MEDS: Clopidogrel TAB* 75 MG PO SCH (09:32)
[2018-11-30] MEDS: Aspirin EC TAB* 81 MG TAB.EC PO SCH (09:32)
[2018-11-30] MEDS: Divalproex Sprinkle CAP* 125 MG PO SCH ×2 (09:33→20:18)
[2018-11-30] MEDS ORDERED: Buffered Lidocaine 1% SYRIN* 1 ML/SYRINGE INTRADERM ONE (13:21)
--- NOTE | 2018-11-30 14:25 | CONS ---
CONSULTATION REPORT: DATE OF CONSULT: 11/30/18 REQUESTING PHYSICIAN: Dr. Hammond. CONSULTING SERVICE: Infectious Disease. REASON FOR CONSULTATION: Dry gangrene. IMPRESSION: 1. Dry gangrene of the distal aspect of the left third, fourth and fifth toes without an associated soft tissue infection currently. An MRI showed no osteomyelitis, though I do suspect he has bone in those toes. 2. Left lateral plantar midfoot ulceration without soft tissue infection. 3. Delirium. 4. History of stroke. 5. Diabetes with peripheral neuropathy and vascular disease. 6. Chronic kidney disease. RECOMMENDATION: We will stop his vancomycin and continue Augmentin as prophylaxis to soft tissue infection adjacent to his areas of dry gangrene in the setting of upcoming revascularization procedure. HISTORY OF PRESENT ILLNESS: This is a 62-year-old man with vascular disease, diabetes and baseline dementia, now with delirium, cannot provide history of his illness which is obtained from discussion with the nurse, review of the medical record and discussion with Dr. Hammond. He had been admitted on with left fourth and fifth toe dry gangrene, which had been followed at [facility] and the [facility]. He was started on vancomycin, which he had tolerated well. Augmentin was added. He has had no fevers here. His white count today was 7. He had a C-reactive protein on the 11/21/18, 16, on 11/25/18 it was 14. He has been followed by Dr. Rodriguez who plans on interventional procedure this week. He did receive some Geodon last night and is in response to combative behavior and he is more flaccid today. PAST MEDICAL HISTORY: 1. History of stroke. 2. ASD. 3. Type 2 diabetes with peripheral neuropathy. 4. Peripheral vascular disease. 5. Anxiety. 6. Hypertension. 7. Hyperlipidemia. 8. Gastroesophageal reflux disease. 9. Bilateral carotid occlusion. 10. Lower extremity wounds. 11. Constipation. MEDICATIONS: 1. Tylenol. 2. Amlodipine. 3. Aspirin. 4. Lipitor. 5. Plavix. 6. Depakote. 7. Enoxaparin. 8. Famotidine. 9. Fluticasone nasal spray. 10. Folic acid. 11. Glycerin suppository as needed. 12. Lidocaine transdermal patch. 13. Ativan every 6 hours as needed. 14. Magnesium hydroxide as needed. 15. Melatonin at bedtime. 16. Metoprolol. 17. Senna as needed. 18. Sertraline twice a day. 19. Tamsulosin at bedtime. 20. Thiamine daily. 21. Tramadol as needed. 22. Trazodone at bedtime. 23. Vancomycin 1 g every 8 hours. ALLERGIES: HYDROCHLOROTHIAZIDE, LATEX, RUBBER, ZOLPIDEM. SOCIAL HISTORY: He lives at [facility]. He was a past smoker. REVIEW OF SYSTEMS: Unobtainable given his mental status. PHYSICAL EXAM: Vital Signs: Temperature 36.8, heart rate 59, respiratory rate 14, blood pressure 135/63, oxygen saturation 99% on 2 L a minute by nasal cannula. In general, he is in no distress. Neurologic: He is asleep, he does open his eyes to touch and voice. He does not follow commands or guard. HEENT : There is no conjunctival hemorrhage. Oropharynx without lesions. Neck: Supple without mass. Heart is regular rate and rhythm without murmurs, rubs, or gallops. Lungs are clear to auscultation bilaterally. Abdomen is soft, nontender, nondistended. There are bowel sounds present. Skin: There is no rash or splinter hemorrhage. Musculoskeletal: There is no joint synovitis. The left third, fourth, and fifth toes have distal areas of gangrene without adjacent erythema or wound and then in the lateral dorsal forefoot, there is a centimeter and half wound with some fibrin and no surrounding erythema. Both feet are warm. DIAGNOSTIC STUDIES/LAB DATA: Creatinine 0.7, white blood cell count 7, hemoglobin 10, MCV 92, platelets 240. Vancomycin trough was 12.7. Please see impression and recommendations outlined above that I discussed with Dr. Hammond. [id number]/CPS #: [id number] [facility]
[2018-11-30] MEDS: Fluticasone NASAL SPRAY 50MCG* 16 gm SPRAY BTL BOTH NARES SCH (15:20)
[2018-11-30] MEDS: Acetaminophen TAB* 325 MG PO PRN (16:06)
[2018-11-30] MEDS ORDERED: oxyCODONE TAB* 5 MG TAB PO ONE (17:46)
[2018-11-30] MEDS: Lidocaine PATCH 5%* 1 PATCH TRANSDERM SCH (18:53)
[2018-11-30] MEDS: QUEtiapine TAB* 25 MG PO SCH (20:17)
[2018-11-30] MEDS: Tamsulosin CAP* 0.4 MG PO SCH (20:18)
[2018-11-30] MEDS: Melatonin 3 MG TAB PO SCH (20:19)
[2018-11-30] MEDS: Enoxaparin(*) 40 MG/0.4 ML SYR SUBCUT SCH (20:26)
[2018-11-30] MEDS: Lidocaine Patch REMOVE* 1 NOTE MISC PATCH OFF SCH (23:08)
[2018-12-01] MEDS ORDERED: Ziprasidone IM INJ* 20 MG/ML VIAL IM PRN
[2018-12-01] MEDS: Amoxicillin/Clavulan* ORALSYR 80 MG/ML (400 MG/5 ML) PO SCH ×3 (00:03→21:35)
[2018-12-01] MEDS: traZODone TAB* 50 MG TAB PO PRN (03:53)
[2018-12-01] MEDS: traMADol TAB* 50 MG PO PRN (03:53)
[2018-12-01] MEDS: LORazepam INJ* 2 MG/ML 1 ML VIAL IV PUSH PRN (04:59)
[2018-12-01] MEDS ORDERED: Vancomycin Trough Check NOTE FOLLOW UP ONE (05:30)
[2018-12-01] MEDS ORDERED: Lactated Ringers 1000 ML Bag* 1,000 ML IV SCH (06:00)
[2018-12-01] MEDS ORDERED: Midazolam* 1 MG/ML 5 ML VIAL (5 MG) ONE ×2 (07:58→12:13)
[2018-12-01] MEDS ORDERED: Dexmedetomidine* 200 MCG/2 ML 2 ML VIAL ONE ×3 (08:01)
[2018-12-01] MEDS ORDERED: KETAMINE HCL* 50 MG/ML 10 ML VIAL ONE (08:01)
[2018-12-01] MEDS ORDERED: Propofol* 10 MG/ML 20 ML BTL ONE ×2 (08:01)
[2018-12-01] MEDS ORDERED: Heparin 2 UNITS/ML IVPREMIX* 2,000 ML IV ONE (09:09)
[2018-12-01] MEDS ORDERED: Iohexol 350 (CONTRAST) 200 ML MDV IV ONE (09:09)
[2018-12-01] MEDS ORDERED: Lidocaine 1% INJ* 10 MG/ML 30 ML SDV ONE (09:09)
[2018-12-01] MEDS ORDERED: nitroGLYCERIN DRIP* 25,000 MCG/250 ML BTL ONE (09:41)
[2018-12-01] MEDS ORDERED: Heparin(*) 1000 UNIT/ML 10 ML VIAL CATH LAB IV ONE (09:41)
[2018-12-01] MEDS ORDERED: Iodixanol 320 (CONTRAST) 100 ML SDV ONE (09:49)
[2018-12-01] MEDS ORDERED: Phenylephrine 10 MG/ML VIAL* 1 ML VIAL ONE (10:46)
[2018-12-01] MEDS ORDERED: EPHEDrine (Pressors)* 50 MG/ML VIAL ONE (10:48)
[2018-12-01] MEDS: Atorvastatin* 80 MG TAB PO SCH (11:11)
[2018-12-01] MEDS: Clopidogrel TAB* 75 MG PO SCH (11:11)
[2018-12-01] MEDS: amLODIPine TAB* 5 MG PO SCH (11:11)
[2018-12-01] MEDS: Divalproex Sprinkle CAP* 125 MG PO SCH ×2 (11:11→21:37)
[2018-12-01] MEDS: Fluticasone NASAL SPRAY 50MCG* 16 gm SPRAY BTL BOTH NARES SCH (11:11)
[2018-12-01] MEDS: Aspirin EC TAB* 81 MG TAB.EC PO SCH (11:11)
[2018-12-01] MEDS: Folic Acid TAB* 1 MG PO SCH (11:13)
[2018-12-01] MEDS: Sertraline* 25 MG TAB PO SCH (11:13)
[2018-12-01] MEDS: Metoprolol Succinate XL TAB* 50 MG PO SCH (11:13)
[2018-12-01] MEDS: Thiamine TAB* 100 MG TAB PO SCH (11:14)
[2018-12-01] MEDS ORDERED: Dexmedetomidine* 1,000 MCG in NS 0.9% 250 ML* 240 ML IV SCH (13:00)
--- NOTE | 2018-12-01 13:06 | PN ---
Progress Note - Progress Note Date of Service: 12/01/18 Note: Patient taken by Dr. Rodriguez for revascularization today. Dr. Rodriguez will contact Dr. Hair to discuss findings. Further treatment recommendations depend upon findings. Plan for possible amputation.
--- NOTE | 2018-12-01 13:20 | PN ---
Progress Note - Progress Note Date of Service: 12/01/18 Note: 62 y/o male with severe peripheral vascular disease arrives from PACU after revascularization of LLE with pipeline stenting by Dr. Rodriguez. Perclose/ Angioseal not able to be completed. Baseline severe agitation and risk of hemorrhage at the arterial puncture site in right groin required the institution of Precedex to keep him predictably calm and flat for 6 hours post- procedure per Anesthesia and Dr. Rodriguez. He arrives on 0.7 mcg/kg/min Precedex protecting his airway with reasonable vitals and a warm left foot. No hematoma palpable at the puncture site. Plan is to continue the precedex for the prescribed total 6 hours to maximize the safety of his hemostasis at the puncture site and then return to his 4N bed. Vascular exam also reveals RLE cooler than left and it is endorsed that this is chronic and stable now that the left has been reperfused. Chest is clear with decreased basilar entry, S1S2 regular, abdomen benign, chronic ulcers LLE, no edema. Sedated but rouses to tactile stimulation and protecting airway. He is on a complex medication regimen , will temporarily hold his POs while sedated anticipating resuming them this evening. Endorsed in report that he received a heparin bolus for the procedure and was already on his plavix which is to be maintained. D/W Drs. Rodriguez and Manish
[2018-12-01] MEDS ORDERED: Midazolam* 1 MG/ML 2 ML VIAL (2 MG) IV SLOW PU PRN (16:18)
--- NOTE | 2018-12-01 18:48 | PN ---
Progress Note - Progress Note Date of Service: 12/01/18 SOAP: Subjective: Patient does not express any pain symptoms. Precedex still being infused so patient is minimally communicative. Objective: Selected Entries 12/01/18 16:31 Pulse Rate 47 Heart Rate 47 Respiratory 14 Rate Blood Pressure 148/80 (mmHg) Blood Pressure 94 Mean O2 Sat by Pulse 100 Oximetry Left groin is soft, nontender Dressing is clean/dry/intact 2+ pulse palpated at RCFA 1+ pulse at left popliteal and ROLLER GOLD LEAF. Left foot is considerably warmer to touch than right Assessment: 62 YOM status post pelvic and left leg arteriography, revascularization of 22cm length left SFA occlusion, left SFA stenting and balloon angioplasty from left RADHA to the junction of the left SFA/popliteal. Hemostasis of the right common femoral arteriotomy was achieved with manual compression which mandates 6 hours of bedrest with right leg straight. It was anticpated that the patient was notgoing to be able to comply with these bedrest restrictions so anesthesia was continued and the patient recovered for 6 hours in the ICU. Plan: 1. From Interventional Radiology perspective, Precedex sedation and bedrest is no longer necessary. 2. Continue Plavix 75 mg and ASA 81 mg PO daily. 3. Wound care management per foot & ankle surgery and ID. 4. The patient's successful stenting procedure was discussed over the telephone with his niece and ALEC Gutierrez at 1830 hours.
--- NOTE | 2018-12-01 19:40 | PN ---
Subjective Date of Service: 12/01/18 Interval History: No acute events overnight, pt less agitated. Tolerated IR procedure today but required post-procedure anesthesia due to medical necessity of keeping RLE still for 6 hours. This was administered in the ICU, and the patient was then cleared to return to the medical floors. Pt denies pain but no offers no response to other questions about symptoms. Objective Active Medications: Acetaminophen (Tylenol Tab*) 975 mg PO Q8H PRN PRN Reason: PAIN - MILD Last Admin: 11/30/18 16:06 Dose: 975 mg Amlodipine Besylate (Norvasc Tab*) 10 mg PO DAILY [facility] Last Admin: 12/01/18 11:11 Dose: Not Given Amoxicillin/Clavulanate Potassium (Augmentin 80 Mg/Ml Susp* Oralsyr) 875 mg PO BID [facility] Last Admin: 12/01/18 11:11 Dose: Not Given Aspirin (Aspirin Ec Tab*) 81 mg PO DAILY [facility] Last Admin: 12/01/18 11:11 Dose: Not Given Atorvastatin Calcium (Lipitor*) 80 mg PO DAILY [facility] Last Admin: 12/01/18 11:11 Dose: Not Given Clopidogrel Bisulfate (Plavix Tab*) 75 mg PO DAILY [facility] Last Admin: 12/01/18 11:11 Dose: Not Given Divalproex Sodium (Depakote Sprinkle Cap*) 125 mg PO BID [facility] Last Admin: 12/01/18 11:11 Dose: Not Given Famotidine (Pepcid Tab*) 20 mg PO DAILY PRN PRN Reason: HEARTBURN Fluticasone Propionate (Flonase Nasal [place] 50mcg*) 1 spray BOTH NARES DAILY [facility] Last Admin: 12/01/18 11:11 Dose: Not Given Folic Acid (Folvite Tab*) 1 mg PO DAILY [facility] Last Admin: 12/01/18 11:13 Dose: Not Given Glycerin (Glycerin Adult Supp*) 1 supp [place] DAILY PRN PRN Reason: CONSTIPATION Last Admin: 11/26/18 10:15 Dose: 1 supp Lidocaine (Lidoderm 5% Patch*) 2 patch TRANSDERM DAILY [facility] Last Admin: 11/30/18 18:53 Dose: 2 patch Lorazepam (Ativan Inj*) 1 mg IV PUSH Q6H PRN PRN Reason: Anxiety or Agitation Last Admin: 10/04/19 04:59 Dose: 1 mg Magnesium Hydroxide (Milk Of Kenn Liq*) 30 ml PO DAILY PRN PRN Reason: CONSTIPATION Last Admin: 11/29/18 13:29 Dose: 30 ml Melatonin (Melatonin) 3 mg PO BEDTIME [facility] Last Admin: 11/30/18 20:19 Dose: 3 mg Metoprolol Succinate (Toprol Xl Tab*) 150 mg PO DAILY [facility] Last Admin: 12/01/18 11:13 Dose: Not Given Miscellaneous (Ativan Pyxis Tello) 1 ea N/A .ATIVAN IV TELLO PRN PRN Reason: PYXIS TELLO Pharmacy Profile Note (Lidocaine Patch Remove*) 2 note PATCH OFF BEDTIME [facility] Last Admin: 11/30/18 23:08 Dose: Not Given Quetiapine Fumarate (Seroquel Tab*) 50 mg PO BEDTIME [facility] Last Admin: 11/30/18 20:17 Dose: 50 mg Senna (Senokot 8.6 Mg Tab*) 1 tab PO QPM PRN PRN Reason: CONSTIPATION Last Admin: 11/29/18 20:18 Dose: 1 tab Sertraline HCl (Zoloft*) 25 mg PO DAILY [facility] Tamsulosin HCl (Flomax Cap*) 0.4 mg PO BEDTIME [facility] Last Admin: 11/30/18 20:18 Dose: 0.4 mg Thiamine HCl (Vitamin B-1 Tab*) 100 mg PO DAILY [facility] Last Admin: 12/01/18 11:14 Dose: Not Given Tramadol HCl (Ultram*) 50 mg PO Q6HR PRN PRN Reason: Pain - Moderate to Severe Last Admin: 12/01/18 03:53 Dose: 50 mg Ziprasidone (Geodon Im Inj*) 5 mg IM ONCE PRN PRN Reason: severe agitation Oxygen Devices in Use Now: None Appearance: frail man, appears older than stated age, lying flat on back in NAD Eyes: No Scleral Icterus Ears/Nose/Mouth/Throat: Clear Oropharnyx, Mucous Membranes Moist Neck: NL Appearance and Movements; NL JVP, Trachea Midline Respiratory: Clear to Auscultation - anteriorly Cardiovascular: NL Sounds; No Murmurs; No JVD, RRR Abdominal: NL Sounds; No Tenderness; No Distention, No Hepatosplenomegaly Extremities: No Edema, - - L foot with 3/5 toes with dry gangrene, dorsal L foot with ulceration; L foot warmer than right Result Diagrams: 11/30/18 06:14 11/30/18 06:14 Assess/Plan/Problems-Billing Assessment: 62M with 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 - Patient Problems (1) Gangrene of left foot Comment: and PAD. Left great toe drainage culture with MRSA and proteus. MRI without osteo. S/p pelvic and L leg arteriography (12/01). - cont Augmentin (11/18 - ) only, per ID recs - s/p vanc (11/17 - 11/30) - Drs. Rodriguez and Laxmi consulting, possible ortho intervention next week - cont ASA and clopidogrel (2) Acute delirium Comment: Multifactorial, likely combination of CVA with residual deficits, hospitalization, med AE, and infection. Per niece, patient has had periods of delerium since his stroke in June, but this is the worst she's seen. Discussed possibility of new stroke, given carotid occlusions, however, patient cannot tolerate sitting for long periods and cannot follow commands for MRI, and patient is already on DAPT and statin and optimized medically - Urgent need would be to continue to treat infection, prevent bacteremia/ sepsis and to identify surgical plan while continuing symptom management - Continue prn ativan for severe agitation - quetiapine and melatonin nightly - avoid Beers meds as able - minimize disturbance, keep near window, quiet room (3) History of CVA with residual deficit Comment: Baseline residual right sided hemiparesis and chronic encephalopathic changes/dementia - Continue aspirin, Plavix, atorvastatin - Continue depakote bid, sertraline daily (4) Anxiety Comment: - Continue sertraline - Ativan prn only for severe anxiety and agitation, limit use (5) Anemia Comment: - Stable - Suspect anemia of chronic disease due to foot infection (6) Hypertension Comment: - Continue metoprolol 150, amlodipine 10 (7) GERD (gastroesophageal reflux disease) Comment: - continue home famotidine prn (8) Lower extremity edema Comment: With associated wounds, new in the last 2 months. ? Related to venous stasis. LE US unremarkable except for atherosclerosis. TTE with grade 1 diastolic dsfnx. - dry on exam, will hold furosemide and PO potassium and monitor (9) DVT prophylaxis Current Visit: Yes Comment: - Ciaty (10) DNR (do not resuscitate) Status and Disposition: Inpatient, anticipate d/c back to [place] when medically stable after multiple procedures.
[2018-12-01] MEDS ORDERED: Midazolam* 1 MG/ML 2 ML VIAL (2 MG) ONE (19:47)
[2018-12-01] MEDS: Lidocaine PATCH 5%* 1 PATCH TRANSDERM SCH (21:30)
[2018-12-01] MEDS: Enoxaparin(*) 40 MG/0.4 ML SYR SUBCUT SCH (21:32)
[2018-12-01] MEDS: Lidocaine Patch REMOVE* 1 NOTE MISC PATCH OFF SCH (21:33)
[2018-12-01] MEDS: Tamsulosin CAP* 0.4 MG PO SCH (21:43)
[2018-12-01] MEDS: QUEtiapine TAB* 25 MG PO SCH (22:59)
[2018-12-01] MEDS: Melatonin 3 MG TAB PO SCH (23:03)
[2018-12-02] MEDS: traMADol TAB* 50 MG PO PRN ×4 (00:05→20:38)
[2018-12-02] MEDS ORDERED: Morphine INJ* 2 MG/ML 1 ML SYRINGE (TWO MG - NEW SYRINGE VERSION) IV PRN (02:21)
[2018-12-02] MEDS ORDERED: Morphine INJ* 4 MG/ML 1 ML SYRINGE (NEW SYRINGE VERSION) IV PRN (05:44)
[2018-12-02] MEDS: LORazepam INJ* 2 MG/ML 1 ML VIAL IV PUSH PRN ×3 (07:17→21:31)
[2018-12-02] MEDS: Atorvastatin* 80 MG TAB PO SCH (07:55)
[2018-12-02] MEDS: Amoxicillin/Clavulan* ORALSYR 80 MG/ML (400 MG/5 ML) PO SCH ×2 (07:55→21:50)
[2018-12-02] MEDS: Clopidogrel TAB* 75 MG PO SCH (07:55)
[2018-12-02] MEDS: amLODIPine TAB* 5 MG PO SCH (07:55)
[2018-12-02] MEDS: Sertraline* 25 MG TAB PO SCH (07:55)
[2018-12-02] MEDS: Metoprolol Succinate XL TAB* 50 MG PO SCH (07:56)
[2018-12-02] MEDS: Aspirin EC TAB* 81 MG TAB.EC PO SCH (07:58)
[2018-12-02] MEDS: Thiamine TAB* 100 MG TAB PO SCH (07:58)
[2018-12-02] MEDS: Folic Acid TAB* 1 MG PO SCH (07:58)
[2018-12-02 08:33] LABS: Hematocrit 28 % (42-52); Hemoglobin 9.2 g/dL (14.0-18.0); Mean Corpuscular HGB Conc 33 g/dL (31-36); Mean Corpuscular Hemoglobin 30 pg (27-31); Mean Corpuscular Volume 92 fL (80-94); Platelet Count 202 10^3/uL (150-450); Red Blood Count 3.04 10^6 /uL (4.18-5.48); Red Cell Distribution Width 17 % (10-15); White Blood Count 6.6 10^3/uL (3.5-10.8)
[2018-12-02 08:50] LABS: Calcium 8.8 mg/dL (8.6-10.3); EGFR African American 131.3 (>60); EGFR Non-African American 108.5 (>60); Magnesium 1.7 mg/dL (1.9-2.7); Potassium 4.1 mmol/L (3.5-5.0)
[2018-12-02] MEDS ORDERED: Magnesium Sulfate 2 GM IV* 2 GM/50 ML BAG IVPB ONE (08:54)
[2018-12-02] MEDS ORDERED: QUEtiapine TAB* 25 MG PO SCH (09:00)
[2018-12-02] MEDS: Fluticasone NASAL SPRAY 50MCG* 16 gm SPRAY BTL BOTH NARES SCH (09:51)
[2018-12-02] MEDS: Lidocaine PATCH 5%* 1 PATCH TRANSDERM SCH (09:51)
[2018-12-02] MEDS: Morphine INJ* 4 MG/ML 1 ML SYRINGE (NEW SYRINGE VERSION) IV PRN ×3 (10:03→18:11)
[2018-12-02] MEDS: Gabapentin CAP(*) 100 MG PO SCH ×2 (10:03→14:00)
[2018-12-02] MEDS: Divalproex Sprinkle CAP* 125 MG PO SCH ×2 (11:34→21:50)
--- NOTE | 2018-12-02 13:42 | PN ---
Subjective Date of Service: 12/02/18 Interval History: Patient this AM was screaming into the hallway for hours. Patient was not very well able to clarify his concerns, but frequently grabbed at his genitals and his left thigh. Patient otherwise unable to engage in ROS. Family History: Unchanged from Admission Social History: Unchanged from Admission Past Medical History: Unchanged from Admission Objective Active Medications: Acetaminophen (Tylenol Tab*) 975 mg PO Q8H PRN PRN Reason: PAIN - MILD Last Admin: 11/30/18 16:06 Dose: 975 mg Amlodipine Besylate (Norvasc Tab*) 10 mg PO DAILY [facility] Last Admin: 12/02/18 07:55 Dose: 10 mg Amoxicillin/Clavulanate Potassium (Augmentin 80 Mg/Ml Susp* Oralsyr) 875 mg PO BID [facility] Last Admin: 12/02/18 07:55 Dose: 875 mg Aspirin (Aspirin Ec Tab*) 81 mg PO DAILY [facility] Last Admin: 12/02/18 07:58 Dose: 81 mg Atorvastatin Calcium (Lipitor*) 80 mg PO DAILY [facility] Last Admin: 12/02/18 07:55 Dose: 80 mg Clopidogrel Bisulfate (Plavix Tab*) 75 mg PO DAILY [facility] Last Admin: 12/02/18 07:55 Dose: 75 mg Divalproex Sodium (Depakote Sprinkle Cap*) 125 mg PO BID [facility] Last Admin: 12/02/18 11:34 Dose: 125 mg Enoxaparin Sodium (Lovenox(*)) 40 mg SUBCUT Q24H [facility] Last Admin: 12/01/18 21:32 Dose: 40 mg Famotidine (Pepcid Tab*) 20 mg PO DAILY PRN PRN Reason: HEARTBURN Fluticasone Propionate (Flonase Nasal [place] 50mcg*) 1 spray BOTH NARES DAILY [facility] Last Admin: 12/02/18 09:51 Dose: Not Given Folic Acid (Folvite Tab*) 1 mg PO DAILY [facility] Last Admin: 12/02/18 07:58 Dose: 1 mg Gabapentin (Neurontin Cap(*)) 200 mg PO TID [facility] Last Admin: 12/02/18 10:03 Dose: 200 mg Glycerin (Glycerin Adult Supp*) 1 supp CO DAILY PRN PRN Reason: CONSTIPATION Last Admin: 11/26/18 10:15 Dose: 1 supp Lidocaine (Lidoderm 5% Patch*) 2 patch TRANSDERM DAILY [facility] Last Admin: 12/02/18 09:51 Dose: Not Given Lorazepam (Ativan Inj*) 1 mg IV PUSH Q6H PRN PRN Reason: Anxiety or Agitation Last Admin: 12/02/18 07:17 Dose: 1 mg Magnesium Hydroxide (Milk Of Magnsami Liq*) 30 ml PO DAILY PRN PRN Reason: CONSTIPATION Last Admin: 11/29/18 13:29 Dose: 30 ml Melatonin (Melatonin) 3 mg PO BEDTIME [facility] Last Admin: 12/01/18 23:03 Dose: 3 mg Metoprolol Succinate (Toprol Xl Tab*) 150 mg PO DAILY [facility] Last Admin: 12/02/18 07:56 Dose: 150 mg Miscellaneous (Ativan Pyxis Tello) 1 ea N/A .ATIVAN IV TELLO PRN PRN Reason: PYXIS TELLO Morphine Sulfate (Morphine Inj (Syringe)*) 4 mg IV Q3H PRN PRN Reason: PAIN - SEVERE Last Admin: 12/02/18 10:03 Dose: 4 mg Pharmacy Profile Note (Lidocaine Patch Remove*) 2 note PATCH OFF BEDTIME [facility] Last Admin: 12/01/18 21:33 Dose: Not Given Quetiapine Fumarate (Seroquel Tab*) 50 mg PO BID [facility] Last Admin: 12/02/18 10:03 Dose: 50 mg Senna (Senokot 8.6 Mg Tab*) 1 tab PO QPM PRN PRN Reason: CONSTIPATION Last Admin: 11/29/18 20:18 Dose: 1 tab Sertraline HCl (Zoloft*) 25 mg PO DAILY [facility] Last Admin: 12/02/18 07:55 Dose: 25 mg Tamsulosin HCl (Flomax Cap*) 0.4 mg PO BEDTIME [facility] Last Admin: 12/01/18 21:43 Dose: 0.4 mg Thiamine HCl (Vitamin B-1 Tab*) 100 mg PO DAILY [facility] Last Admin: 12/02/18 07:58 Dose: 100 mg Tramadol HCl (Ultram*) 50 mg PO Q6HR PRN PRN Reason: Pain - Moderate to Severe Last Admin: 12/02/18 07:23 Dose: 50 mg Ziprasidone (Geodon Im Inj*) 5 mg IM ONCE PRN PRN Reason: severe agitation Vital Signs - 8 hr 1012/02/18 12/02/18 06:00 06:30 07:17 Temperature Pulse Rate Respiratory 24 20 24 Rate Blood Pressure (mmHg) O2 Sat by Pulse Oximetry 12/02/18 12/02/18 12/02/18 07:23 07:33 07:52 Temperature 98.2 F Pulse Rate 129 Respiratory 24 22 17 Rate Blood Pressure 129/75 (mmHg) O2 Sat by Pulse 96 Oximetry 12/02/18 12/02/18 12/02/18 09:14 09:51 10:03 Temperature Pulse Rate Respiratory 20 16 22 Rate Blood Pressure (mmHg) O2 Sat by Pulse Oximetry 12/02/18 12/02/18 12/02/18 11:01 11:31 13:05 Temperature Pulse Rate Respiratory 18 16 16 Rate Blood Pressure (mmHg) O2 Sat by Pulse 96 Oximetry Oxygen Devices in Use Now: None Appearance: Patient is a 62yo male who appears much older than stated age and is sitting in the bed in [facility]. Eyes: No Scleral Icterus, PERRLA Ears/Nose/Mouth/Throat: NL Teeth, Lips, Gums, Clear Oropharnyx, Mucous Membranes Moist Neck: NL Appearance and Movements; NL JVP, Trachea Midline Respiratory: Symmetrical Chest Expansion and Respiratory Effort, Clear to Auscultation Cardiovascular: NL Sounds; No Murmurs; No JVD, No Edema, - - Tachycardia Abdominal: NL Sounds; No Tenderness; No Distention, No Hepatosplenomegaly Lymphatic: No Cervical Adenopathy Extremities: No Edema, No Clubbing, Cyanosis Skin: No Nodules or Sclerosis, - - Gangrenous toes on B/L Feet, worse on left. Neurological: - - Alert and not oriented to self. Result Diagrams: 12/02/18 08:09 12/02/18 08:09 Additional Lab and Data: Above labs were pulled into the note when edited prior to signing, below are the labs from the day of consultation. Laboratory Tests 11/17/18 11/19/18 11/21/18 19:14 10:55 12:04 WBC 7.5 Hgb 9.7 L Hct 29 L Plt Count 280 Sodium 128 L Potassium 4.8 Chloride 99 L Carbon Dioxide 21 L BUN 20 Creatinine 0.69 Glucose 93 C-Reactive Protein 16.02 H Total Protein 5.9 L Albumin 3.0 L Microbiology and Other Data: Microbiology 11/17/18 19:49 Aerobic Blood Culture - Preliminary Blood Venous No Growth Day 2 Anaerobic Blood Culture - Preliminary No Growth Day 2 11/17/18 19:49 Aerobic Blood Culture - Preliminary Blood Venous No Growth Day 2 Anaerobic Blood Culture - Preliminary No Growth Day 2 11/18/18 00:00 Nasal Screen MRSA (PCR) - Final Nasal Mrsa Not Detected Diagnostic Imaging: Exam Date: 11/17/18 1859 - FOOT LEFT 3+ VWS IMPRESSION: 1. Subcutaneous emphysema about the distal first phalanx with no clear osseous destruction. 2. No fracture. Exam Date: 11/20/18 0000 - VL LOWER EXT VEINS BILATERAL IMPRESSION: 1. NO RIGHT LOWER EXTREMITY DEEP VEIN THROMBOSIS. 2. NO LEFT LOWER EXTREMITY DEEP VEIN THROMBOSIS. 3. 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 - Patient Problems (1) Gangrene of left foot Current Visit: Yes Status: Acute Code(s): I96 - GANGRENE, NOT ELSEWHERE CLASSIFIED SNOMED Code(s): 88705950384098377 Comment: - Partially due to PAD. - Left great toe drainage culture with MRSA and proteus. MRI without osteo. S/p pelvic and L leg arteriography (12/01). - Cont Augmentin (11/18 - ) only, per ID recs - S/P vanc (11/17 - 11/30) - Drs. Rodriguez and Laxmi consulting, possible ortho intervention next week - Cont ASA and clopidogrel (2) Acute delirium Current Visit: Yes Status: Acute Code(s): R41.0 - DISORIENTATION, UNSPECIFIED SNOMED Code(s): 0263680 Comment: - Multifactorial, likely combination of CVA with residual deficits, hospitalization, med AE, and infection. Per niece, patient has had periods of delerium since his stroke in June, but this is the worst she's seen. Discussed possibility of new stroke, given carotid occlusions, however, patient cannot tolerate sitting for long periods and cannot follow commands for MRI, and patient is already on DAPT and statin and optimized medically - Urgent need would be to continue to treat infection, prevent bacteremia/ sepsis and to identify surgical plan while continuing symptom management - Continue prn ativan for severe agitation - quetiapine and melatonin nightly - avoid Beers meds as able - minimize disturbance, keep near window, quiet room (3) Anemia Current Visit: Yes Status: Acute Code(s): D64.9 - ANEMIA, UNSPECIFIED SNOMED Code(s): 093934480 Comment: - Stable - Suspect anemia of chronic disease due to foot infection (4) Anxiety Current Visit: Yes Status: Acute Code(s): F41.9 - ANXIETY DISORDER, UNSPECIFIED SNOMED Code(s): 59344932 Comment: - Continue sertraline - Ativan prn only for severe anxiety and agitation, limit use (5) GERD (gastroesophageal reflux disease) Current Visit: Yes Status: Acute Code(s): K21.9 - GASTRO-ESOPHAGEAL REFLUX DISEASE WITHOUT ESOPHAGITIS SNOMED Code(s): 473752601 Comment: - continue home famotidine prn (6) History of CVA with residual deficit Current Visit: Yes Status: Acute Code(s): I69.30 - UNSPECIFIED SEQUELAE OF CEREBRAL INFARCTION SNOMED Code(s): 513328594 Comment: - Baseline residual right sided hemiparesis and chronic encephalopathic changes/dementia - Continue aspirin, Plavix, atorvastatin - Continue depakote bid, sertraline daily - B/L Carotid Occlusion with distal reconstitution, avoid hypotension if possible. (7) Hyperlipidemia Current Visit: Yes Status: Acute Code(s): E78.5 - HYPERLIPIDEMIA, UNSPECIFIED SNOMED Code(s): 11572092 Comment: - Continue atorvastatin (8) Hypertension Current Visit: Yes Status: Acute Code(s): I10 - ESSENTIAL (PRIMARY) HYPERTENSION SNOMED Code(s): 68426011 Comment: - Continue metoprolol 150, amlodipine 10 (9) Lower extremity edema Current Visit: Yes Status: Acute Code(s): R60.0 - LOCALIZED EDEMA SNOMED Code(s): 433816540 Comment: - With associated wounds, new in the last 2 months. ? Related to venous stasis. LE US unremarkable except for atherosclerosis. TTE with grade 1 diastolic dsfnx. - Lasix PRN (10) DNR (do not resuscitate) Current Visit: Yes Status: Acute Comment: (11) DVT prophylaxis Current Visit: Yes Status: Acute Code(s): Z29.9 - ENCOUNTER FOR PROPHYLACTIC MEASURES, UNSPECIFIED SNOMED Code(s): 357903223 Comment: - Lovenox Status and Disposition: Inpatient, anticipate d/c back to [facility] when medically stable after multiple procedures.
[2018-12-02] MEDS: Enoxaparin(*) 40 MG/0.4 ML SYR SUBCUT SCH (20:29)
[2018-12-02] MEDS: QUEtiapine TAB* 25 MG PO SCH (20:30)
[2018-12-02] MEDS: Tamsulosin CAP* 0.4 MG PO SCH (20:31)
[2018-12-02] MEDS: Melatonin 3 MG TAB PO SCH (20:31)
[2018-12-02] MEDS: Lidocaine Patch REMOVE* 1 NOTE MISC PATCH OFF SCH (21:56)
[2018-12-03] MEDS: Morphine INJ* 4 MG/ML 1 ML SYRINGE (NEW SYRINGE VERSION) IV PRN ×5 (02:24→18:47)
[2018-12-03] MEDS: LORazepam INJ* 2 MG/ML 1 ML VIAL IV PUSH PRN ×3 (04:56→19:24)
[2018-12-03 07:37] LABS: ABS Eosinophils 0.4 10^3/ul (0-0.6); ABS Lymphocytes 1.2 10^3/ul (1.0-4.8); ABS Monocytes 0.7 10^3/ul (0-0.8); ABS Neutrophils 3.1 10^3/ul (1.5-7.7); Eosinophil % 7.3 %; Hematocrit 27 % (42-52); Lymphocyte % 22.4 %; Mean Corpuscular HGB Conc 34 g/dL (31-36); Mean Corpuscular Hemoglobin 31 pg (27-31); Mean Corpuscular Volume 91 fL (80-94); Mean Platelet Volume 7.3 fL (7.4-10.4); Nucleated Red Blood Cells % 0.1; Platelet Count 196 10^3/uL (150-450); Red Blood Count 2.91 10^6 /uL (4.18-5.48); Red Cell Distribution Width 17 % (10-15); White Blood Count 5.5 10^3/uL (3.5-10.8)
[2018-12-03 07:55] LABS: BUN/Creatinine Ratio 19.2 (8-20); Calcium 8.8 mg/dL (8.6-10.3); EGFR African American 121.6 (>60); EGFR Non-African American 100.5 (>60); Magnesium 1.9 mg/dL (1.9-2.7); Potassium 3.9 mmol/L (3.5-5.0)
[2018-12-03] MEDS: traMADol TAB* 50 MG PO PRN (08:46)
[2018-12-03] MEDS: Atorvastatin* 80 MG TAB PO SCH (08:46)
[2018-12-03] MEDS: Metoprolol Succinate XL TAB* 50 MG PO SCH (08:46)
[2018-12-03] MEDS: Aspirin EC TAB* 81 MG TAB.EC PO SCH (08:47)
[2018-12-03] MEDS: Clopidogrel TAB* 75 MG PO SCH (08:47)
[2018-12-03] MEDS: Sertraline* 25 MG TAB PO SCH (08:47)
[2018-12-03] MEDS: Amoxicillin/Clavulan* ORALSYR 80 MG/ML (400 MG/5 ML) PO SCH ×2 (08:47→22:03)
[2018-12-03] MEDS: Folic Acid TAB* 1 MG PO SCH (08:47)
[2018-12-03] MEDS: amLODIPine TAB* 5 MG PO SCH (08:47)
[2018-12-03] MEDS: Lidocaine PATCH 5%* 1 PATCH TRANSDERM SCH (08:48)
[2018-12-03] MEDS: Thiamine TAB* 100 MG TAB PO SCH (08:55)
[2018-12-03] MEDS: Divalproex Sprinkle CAP* 125 MG PO SCH ×2 (10:18→22:04)
[2018-12-03] MEDS: Fluticasone NASAL SPRAY 50MCG* 16 gm SPRAY BTL BOTH NARES SCH (11:16)
--- NOTE | 2018-12-03 11:54 | PN ---
Subjective Date of Service: 12/03/18 Interval History: Mr. Fuentes is laying in bed, moaning and yelling. He is not responding to ROS questions, non-verbal at this time. Family History: Unchanged from Admission Social History: Unchanged from Admission Past Medical History: Unchanged from Admission Objective Active Medications: Acetaminophen (Tylenol Tab*) 975 mg PO Q8H PRN Amlodipine Besylate (Norvasc Tab*) 10 mg PO DAILY [facility] Amoxicillin/Clavulanate Potassium (Augmentin 80 Mg/Ml Susp* Oralsyr) 875 mg PO BID [facility] Aspirin (Aspirin Ec Tab*) 81 mg PO DAILY [facility] Atorvastatin Calcium (Lipitor*) 80 mg PO DAILY [facility] Clopidogrel Bisulfate (Plavix Tab*) 75 mg PO DAILY [facility] Divalproex Sodium (Depakote Sprinkle Cap*) 125 mg PO BID [facility] Enoxaparin Sodium (Lovenox(*)) 40 mg SUBCUT Q24H [facility] Famotidine (Pepcid Tab*) 20 mg PO DAILY [facility] Fluticasone Propionate (Flonase Nasal [place] 50mcg*) 1 spray BOTH NARES DAILY [facility] Folic Acid (Folvite Tab*) 1 mg PO DAILY [facility] Gabapentin (Neurontin Cap(*)) 200 mg PO TID [facility] Glycerin (Glycerin Adult Supp*) 1 supp MA DAILY PRN Lidocaine (Lidoderm 5% Patch*) 2 patch TRANSDERM DAILY [facility] Lorazepam (Ativan Inj*) 1 mg IV PUSH Q6H PRN Magnesium Hydroxide (Milk Of Magnesia Liq*) 30 ml PO DAILY PRN Melatonin (Melatonin) 3 mg PO BEDTIME [facility] Metoprolol Succinate (Toprol Xl Tab*) 150 mg PO DAILY [facility] Miscellaneous (Ativan Pyxis Tello) 1 ea N/A .ATIVAN IV TELLO PRN Morphine Sulfate (Morphine Inj (Syringe)*) 4 mg IV Q3H PRN Pharmacy Profile Note (Lidocaine Patch Remove*) 2 note PATCH OFF BEDTIME [facility] Quetiapine Fumarate (Seroquel Tab*) 50 mg PO BEDTIME [facility] Quetiapine Fumarate (Seroquel Tab*) 25 mg PO DAILY [facility] Senna (Senokot 8.6 Mg Tab*) 1 tab PO QPM PRN Sertraline HCl (Zoloft*) 25 mg PO DAILY [facility] Tamsulosin HCl (Flomax Cap*) 0.4 mg PO BEDTIME [facility] Thiamine HCl (Vitamin B-1 Tab*) 100 mg PO DAILY [facility] Tramadol HCl (Ultram*) 50 mg PO Q6HR PRN Ziprasidone (Geodon Im Inj*) 5 mg IM ONCE PRN Vital Signs: Temp Pulse Resp BP Pulse Ox 98.1 F 79 22 133/78 97 12/03/18 08:00 12/03/18 08:00 12/03/18 13:04 12/03/18 08:00 12/03/18 08:00 Oxygen Devices in Use Now: None Appearance: Pt is laying in bed unclothed, moaning and hollering out. He appears uncomfortable, but is intermittently falling asleep. Neck: NL Appearance and Movements; NL JVP, Trachea Midline Respiratory: Symmetrical Chest Expansion and Respiratory Effort, Clear to Auscultation - Unable to follow instructions for deep breathing. Cardiovascular: NL Sounds; No Murmurs; No JVD, RRR, No Edema Abdominal: NL Sounds; No Tenderness; No Distention, No Hepatosplenomegaly Extremities: No Edema, No Clubbing, Cyanosis, - - LLE with pedal edema. L foot with dry gangrene in digits 3-5. Neurological: - - Intermittently sleeping, confused. Moaning, not responding to questions, not making eye contact. Result Diagrams: 12/03/18 07:11 12/03/18 07:11 Additional Lab and Data: Above labs were pulled into the note when edited prior to signing, below are the labs from the day of consultation. Laboratory Tests 11/17/18 11/19/18 11/21/18 19:14 10:55 12:04 WBC 7.5 Hgb 9.7 L Hct 29 L Plt Count 280 Sodium 128 L Potassium 4.8 Chloride 99 L Carbon Dioxide 21 L BUN 20 Creatinine 0.69 Glucose 93 C-Reactive Protein 16.02 H Total Protein 5.9 L Albumin 3.0 L Microbiology and Other Data: Microbiology 11/17/18 19:49 Aerobic Blood Culture - Preliminary Blood Venous No Growth Day 2 Anaerobic Blood Culture - Preliminary No Growth Day 2 11/17/18 19:49 Aerobic Blood Culture - Preliminary Blood Venous No Growth Day 2 Anaerobic Blood Culture - Preliminary No Growth Day 2 11/18/18 00:00 Nasal Screen MRSA (PCR) - Final Nasal Mrsa Not Detected Diagnostic Imaging: Exam Date: 11/17/18 1859 - FOOT LEFT 3+ VWS IMPRESSION: 1. Subcutaneous emphysema about the distal first phalanx with no clear osseous destruction. 2. No fracture. Exam Date: 11/20/18 0000 - VL LOWER EXT VEINS BILATERAL IMPRESSION: 1. NO RIGHT LOWER EXTREMITY DEEP VEIN THROMBOSIS. 2. NO LEFT LOWER EXTREMITY DEEP VEIN THROMBOSIS. 3. 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 - Patient Problems (1) Gangrene of left foot Comment: - Partially due to PAD. - Left great toe drainage culture with MRSA and proteus. MRI without osteo. - S/p pelvic and L leg arteriography (12/01). - Cont Augmentin (11/18 - ) only, per ID recs - S/P vanc (11/17 - 11/30) - Drs. Rodriguez and Laxmi consulting, possible ortho intervention next week - Cont ASA and clopidogrel (2) Acute delirium Comment: - Multifactorial, likely combination of CVA with residual deficits, hospitalization, med AE, and infection. Per niece, patient has had periods of delerium since his stroke in June, but this is the worst she's seen. Discussed possibility of new stroke, given carotid occlusions, however, patient cannot tolerate sitting for long periods and cannot follow commands for MRI, and patient is already on DAPT and statin and optimized medically - Urgent need would be to continue to treat infection, prevent bacteremia/ sepsis and to identify surgical plan while continuing symptom management - Continue prn ativan for severe agitation - quetiapine and melatonin nightly - Quetiapine a.m. dose added - Pt worsening today from yesterday, moaning; question if this is partially due to pain- will add gabapentin tid - avoid Beers meds as able - minimize disturbance, keep near window, quiet room (3) Anemia Comment: - Stable - Suspect anemia of chronic disease due to foot infection (4) Lower extremity edema Comment: - With associated wounds, new in the last 2 months. ? Related to venous stasis. - B/L LE US unremarkable except for atherosclerosis. - TTE with grade 1 diastolic dsfnx. - Lasix PRN (5) Hypertension Comment: - Continue metoprolol 150, amlodipine 10 (6) Hyperlipidemia Comment: - Continue atorvastatin (7) History of CVA with residual deficit Comment: - Baseline residual right sided hemiparesis and chronic encephalopathic changes /dementia - Continue aspirin, Plavix, atorvastatin - Continue depakote bid, sertraline daily - B/L Carotid Occlusion with distal reconstitution, avoid hypotension if possible. (8) Anxiety Comment: - Continue sertraline - Ativan prn only for severe anxiety and agitation, limit use (9) GERD (gastroesophageal reflux disease) Comment: - continue home famotidine prn (10) DVT prophylaxis Comment: - Lovenox (11) DNR (do not resuscitate) Comment: Status and Disposition: Inpatient, anticipate d/c back to [facility] when medically stable after multiple procedures.
[2018-12-03] MEDS: Gabapentin CAP(*) 100 MG PO SCH ×4 (12:24→22:05)
[2018-12-03] MEDS: QUEtiapine TAB* 25 MG PO SCH ×2 (12:27→22:05)
[2018-12-03] MEDS: Tamsulosin CAP* 0.4 MG PO SCH (22:04)
[2018-12-03] MEDS: Enoxaparin(*) 40 MG/0.4 ML SYR SUBCUT SCH (22:04)
[2018-12-03] MEDS: Melatonin 3 MG TAB PO SCH (22:05)
[2018-12-03] MEDS: Lidocaine Patch REMOVE* 1 NOTE MISC PATCH OFF SCH (22:29)
[2018-12-04] MEDS: Morphine INJ* 4 MG/ML 1 ML SYRINGE (NEW SYRINGE VERSION) IV PRN ×6 (02:39→22:41)
[2018-12-04] MEDS: LORazepam INJ* 2 MG/ML 1 ML VIAL IV PUSH PRN ×3 (03:15→20:54)
[2018-12-04] MEDS: traMADol TAB* 50 MG PO PRN ×2 (09:31→16:24)
[2018-12-04] MEDS: Divalproex Sprinkle CAP* 125 MG PO SCH ×2 (10:00→20:54)
[2018-12-04] MEDS: Metoprolol Succinate XL TAB* 50 MG PO SCH (10:00)
[2018-12-04] MEDS: Folic Acid TAB* 1 MG PO SCH (10:02)
[2018-12-04] MEDS: amLODIPine TAB* 5 MG PO SCH (10:02)
[2018-12-04] MEDS: Thiamine TAB* 100 MG TAB PO SCH (10:02)
[2018-12-04] MEDS: Clopidogrel TAB* 75 MG PO SCH (10:02)
[2018-12-04] MEDS: Atorvastatin* 80 MG TAB PO SCH (10:02)
[2018-12-04] MEDS: Gabapentin CAP(*) 100 MG PO SCH ×3 (10:03→20:07)
[2018-12-04] MEDS: QUEtiapine TAB* 25 MG PO SCH ×2 (10:03→20:07)
[2018-12-04] MEDS: Sertraline* 25 MG TAB PO SCH (10:05)
[2018-12-04] MEDS: Aspirin EC TAB* 81 MG TAB.EC PO SCH (10:09)
[2018-12-04] MEDS: Lidocaine PATCH 5%* 1 PATCH TRANSDERM SCH (10:18)
[2018-12-04] MEDS: Amoxicillin/Clavulan* ORALSYR 80 MG/ML (400 MG/5 ML) PO SCH ×2 (10:24→20:53)
[2018-12-04] MEDS: Fluticasone NASAL SPRAY 50MCG* 16 gm SPRAY BTL BOTH NARES SCH (13:45)
--- NOTE | 2018-12-04 17:37 | PN ---
Subjective Date of Service: 12/04/18 Interval History: Pt is intermittently hollering, sleeping. He intermittently answers questions. When asked if he is in pain, he states "yes," but unable to say where pain is. He does not respond to further ROS questioning. Does not respond when asked if there is pain in L foot. Family History: Unchanged from Admission Social History: Unchanged from Admission Past Medical History: Unchanged from Admission Objective Active Medications: Acetaminophen (Tylenol Tab*) 975 mg PO Q8H PRN Amlodipine Besylate (Norvasc Tab*) 10 mg PO DAILY [facility] Amoxicillin/Clavulanate Potassium (Augmentin 80 Mg/Ml Susp* Oralsyr) 875 mg PO BID [facility] Aspirin (Aspirin Ec Tab*) 81 mg PO DAILY [facility] Atorvastatin Calcium (Lipitor*) 80 mg PO DAILY [facility] Clopidogrel Bisulfate (Plavix Tab*) 75 mg PO DAILY [facility] Divalproex Sodium (Depakote Sprinkle Cap*) 125 mg PO BID [facility] Enoxaparin Sodium (Lovenox(*)) 40 mg SUBCUT Q24H [facility] Famotidine (Pepcid Tab*) 20 mg PO DAILY PRN Fluticasone Propionate (Flonase Nasal [place] 50mcg*) 1 spray BOTH NARES DAILY [facility] Folic Acid (Folvite Tab*) 1 mg PO DAILY [facility] Gabapentin (Neurontin Cap(*)) 200 mg PO TID [facility] Glycerin (Glycerin Adult Supp*) 1 supp [place] DAILY PRN Lidocaine (Lidoderm 5% Patch*) 2 patch TRANSDERM DAILY [facility] Lorazepam (Ativan Inj*) 1 mg IV PUSH Q6H PRN Magnesium Hydroxide (Milk Of Magnesia Liq*) 30 ml PO DAILY PRN Melatonin (Melatonin) 3 mg PO BEDTIME [facility] Metoprolol Succinate (Toprol Xl Tab*) 150 mg PO DAILY [facility] Miscellaneous (Ativan Pyxis Tello) 1 ea N/A .ATIVAN IV TELLO PRN Morphine Sulfate (Morphine Inj (Syringe)*) 4 mg IV Q3H PRN Pharmacy Profile Note (Lidocaine Patch Remove*) 2 note PATCH OFF BEDTIME [facility] Quetiapine Fumarate (Seroquel Tab*) 50 mg PO BEDTIME [facility] Quetiapine Fumarate (Seroquel Tab*) 25 mg PO DAILY [facility] Senna (Senokot 8.6 Mg Tab*) 1 tab PO QPM PRN Sertraline HCl (Zoloft*) 25 mg PO DAILY [facility] Tamsulosin HCl (Flomax Cap*) 0.4 mg PO BEDTIME [facility] Thiamine HCl (Vitamin B-1 Tab*) 100 mg PO DAILY [facility] Tramadol HCl (Ultram*) 50 mg PO Q6HR PRN Ziprasidone (Geodon Im Inj*) 5 mg IM ONCE PRN Vital Signs: Temp Pulse Resp BP Pulse Ox 98.2 F 84 16 84/74 95 12/04/18 14:55 12/04/18 14:55 12/04/18 16:36 12/04/18 14:55 12/04/18 14:55 Oxygen Devices in Use Now: None Appearance: Pt is laying in bed; intermittently sleeping and yelling out; repositions frequently; appears that he may be in some discomfort, but not responding to questions. Respiratory: Symmetrical Chest Expansion and Respiratory Effort, Clear to Auscultation - Unable to follow instructions for deep breathing. Cardiovascular: NL Sounds; No Murmurs; No JVD, RRR Abdominal: NL Sounds; No Tenderness; No Distention, No Hepatosplenomegaly Extremities: No Clubbing, Cyanosis, - - B/l LE edema, L>R. L foot with dry gangrene in digits 3-5. Neurological: Alert and Oriented x 3 Result Diagrams: 12/03/18 07:11 12/03/18 07:11 Additional Lab and Data: Above labs were pulled into the note when edited prior to signing, below are the labs from the day of consultation. Laboratory Tests 11/17/18 11/19/18 11/21/18 19:14 10:55 12:04 WBC 7.5 Hgb 9.7 L Hct 29 L Plt Count 280 Sodium 128 L Potassium 4.8 Chloride 99 L Carbon Dioxide 21 L BUN 20 Creatinine 0.69 Glucose 93 C-Reactive Protein 16.02 H Total Protein 5.9 L Albumin 3.0 L Microbiology and Other Data: Microbiology 11/17/18 19:49 Aerobic Blood Culture - Preliminary Blood Venous No Growth Day 2 Anaerobic Blood Culture - Preliminary No Growth Day 2 11/17/18 19:49 Aerobic Blood Culture - Preliminary Blood Venous No Growth Day 2 Anaerobic Blood Culture - Preliminary No Growth Day 2 11/18/18 00:00 Nasal Screen MRSA (PCR) - Final Nasal Mrsa Not Detected Diagnostic Imaging: Exam Date: 09/20/19 1859 - FOOT LEFT 3+ VWS IMPRESSION: 1. Subcutaneous emphysema about the distal first phalanx with no clear osseous destruction. 2. No fracture. Exam Date: 11/20/18 0000 - VL LOWER EXT VEINS BILATERAL IMPRESSION: 1. NO RIGHT LOWER EXTREMITY DEEP VEIN THROMBOSIS. 2. NO LEFT LOWER EXTREMITY DEEP VEIN THROMBOSIS. 3. 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 - Patient Problems (1) Gangrene of left foot Comment: - Partially due to PAD - Left great toe drainage culture with MRSA and proteus; MRI without osteo. - S/p pelvic and L leg arteriography (12/01). - Cont Augmentin (11/18 - ) only, per ID recs - S/P vanc (11/17 - 11/30) - Drs. Rodriguez and Laxmi consulting, possible ortho intervention this week - Cont ASA and clopidogrel (2) Acute delirium Comment: - Multifactorial, likely combination of CVA with residual deficits, hospitalization, med AE, and infection. Per niece, patient has had periods of delerium since his stroke in June, but this is the worst she's seen. Discussed possibility of new stroke, given carotid occlusions, however, patient cannot tolerate sitting for long periods and cannot follow commands for MRI, and patient is already on DAPT and statin and optimized medically - Urgent need would be to continue to treat infection, prevent bacteremia/ sepsis and to identify surgical plan while continuing symptom management - Continue prn ativan for severe agitation - quetiapine BID, melatonin nightly - Add gabapentin for possible nerve pain in setting of gangrene to L foot - avoid Beers meds as able - minimize disturbance, keep near window, quiet room (3) Anemia Comment: - Stable - Suspect anemia of chronic disease due to foot infection (4) Lower extremity edema Comment: - With associated wounds, new in the last 2 months. ? Related to venous stasis. - B/L LE US unremarkable except for atherosclerosis. - TTE with grade 1 diastolic dsfnx. - Lasix PRN (5) Hypertension Comment: - Continue metoprolol 150, amlodipine 10 (6) Hyperlipidemia Comment: - Continue atorvastatin (7) History of CVA with residual deficit Comment: - Baseline residual right sided hemiparesis and chronic encephalopathic changes /dementia - Continue aspirin, Plavix, atorvastatin - Continue depakote bid, sertraline daily - B/L Carotid Occlusion with distal reconstitution, avoid hypotension if possible. (8) Anxiety Comment: - Continue sertraline - Ativan prn only for severe anxiety and agitation, limit use (9) GERD (gastroesophageal reflux disease) Comment: - continue home famotidine prn (10) DVT prophylaxis Comment: - Lovenox (11) DNR (do not resuscitate) Comment: Status and Disposition: Inpatient, anticipate d/c back to [facility] when medically stable after multiple procedures.
--- NOTE | 2018-12-04 19:34 | PN ---
Progress Note - Progress Note Date of Service: 12/04/18 SOAP: Subjective: [] Pt seen at bedside. he does not converse with me, he is thrashing and yelling out before I enter as well as while I'm in the room. Objective: []Gen: Thrashing and yelling, no localizable pain or distress Left foot: Wounds grossly unchanged from previous exam. No erythema or edema. Dry grangrene of 4th toe. Toes 2-5 dusky distally. Great toe without any active purulence. Dorsal lateral foot with dry superficial ulcer roughly quarter sized. Heel ulcer dry and appears superficial. DP pulse palpable. Assessment: [] Left foot dry gangrene status post pelvic and left leg arteriography, revascularization of 22cm length left SFA occlusion, left SFA stenting and balloon angioplasty from left RADHA to the junction of the left SFA/popliteal. Plan: []Cont abx per medicine - augmentin Continue Plavix 75 mg and ASA 81 mg PO daily per vasc Dr Hair made aware that vasc intervention is complete, surg intervention plan to be determined Laboratory Last Values WBC 5.5 10^3/uL (3.5-10.8) 12/03/18 07:11 RBC 2.91 10^6 /uL (4.18-5.48) L 12/03/18 07:11 Hgb 9.0 g/dL (14.0-18.0) L 12/03/18 07:11 Hct 27 % (42-52) L 12/03/18 07:11 MCV 91 fL (80-94) 12/03/18 07:11 MCH 31 pg (27-31) 12/03/18 07:11 MCHC 34 g/dL (31-36) 12/03/18 07:11 RDW 17 % (10-15) H 12/03/18 07:11 Plt Count 196 10^3/uL (150-450) 12/03/18 07:11 MPV 7.3 fL (7.4-10.4) L 12/03/18 07:11 Neut % (Auto) 56.8 % 12/03/18 07:11 Lymph % (Auto) 22.4 % 12/03/18 07:11 Teller % (Auto) 13.0 % 12/03/18 07:11 Eos % (Auto) 7.3 % 12/03/18 07:11 Baso % (Auto) 0.5 % 12/03/18 07:11 Absolute Neuts (auto) 3.1 10^3/ul (1.5-7.7) 12/03/18 07:11 Absolute Lymphs (auto) 1.2 10^3/ul (1.0-4.8) 12/03/18 07:11 Absolute Monos (auto) 0.7 10^3/ul (0-0.8) 12/03/18 07:11 Absolute Eos (auto) 0.4 10^3/ul (0-0.6) 12/03/18 07:11 Absolute Basos (auto) 0.0 10^3/ul (0-0.2) 12/03/18 07:11 Absolute Nucleated RBC 0.0 10^3/ul 12/03/18 07:11 Nucleated RBC % 0.1 12/03/18 07:11 INR (Anticoag Therapy) 1.06 (0.82-1.09) 11/23/18 05:58 APTT 38.0 seconds (26.0-38.0) 11/17/18 19:14 POC Activ Clotting Time < 135 seconds 12/01/18 11:14 Sodium 133 mmol/L (135-145) L 12/03/18 07:11 Potassium 3.9 mmol/L (3.5-5.0) 12/03/18 07:11 Chloride 99 mmol/L (101-111) L 12/03/18 07:11 Carbon Dioxide 29 mmol/L (22-32) 12/03/18 07:11 Anion Gap 5 mmol/L (2-11) 12/03/18 07:11 BUN 15 mg/dL (6-24) 12/03/18 07:11 Creatinine 0.78 mg/dL (0.67-1.17) 12/03/18 07:11 Est GFR ( Amer) 121.6 (>60) 12/03/18 07:11 Est GFR (Non-Af Amer) 100.5 (>60) 12/03/18 07:11 BUN/Creatinine Ratio 19.2 (8-20) 12/03/18 07:11 Glucose 83 mg/dL (70-100) 12/03/18 07:11 POC Glucose (mg/dL) 92 mg/dL (70-100) 12/01/18 08:02 Lactic Acid 2.0 mmol/L (0.5-2.0) 11/17/18 22:39 Calcium 8.8 mg/dL (8.6-10.3) 12/03/18 07:11 Magnesium 1.9 mg/dL (1.9-2.7) 12/03/18 07:11 Iron 39 ug/dL (50-212) L 11/18/18 05:33 TIBC 252 mcg/dL (250-450) 11/18/18 05:33 % Saturation 15 % (15-55) 11/18/18 05:33 Unsat Iron Binding < 237 ug/dL 11/18/18 05:33 Transferrin 180 mg/dL (203-362) L 11/18/18 05:33 Ferritin 257.2 ng/mL (24-336) 11/18/18 05:33 Total Bilirubin 0.20 mg/dL (0.2-1.0) 11/25/18 05:26 AST 14 U/L (13-39) 11/25/18 05:26 ALT 30 U/L (7-52) 11/25/18 05:26 Alkaline Phosphatase 69 U/L (34-104) 11/25/18 05:26 Ammonia 46 mcmol/L (16-53) 11/17/18 22:39 Troponin I 0.00 ng/mL (<0.04) 11/17/18 22:41 C-Reactive Protein 14.13 mg/L (<8.01) H 11/25/18 05:26 Total Protein 6.4 g/dL (6.4-8.9) 11/25/18 05:26 Albumin 3.3 g/dL (3.2-5.2) 11/25/18 05:26 Globulin 3.1 g/dL (2-4) 11/25/18 05:26 Albumin/Globulin Ratio 1.1 (1-3) 11/25/18 05:26 Vitamin B12 247 pg/mL (180-914) 11/18/18 05:33 Folate 19.14 ng/mL (>3.99) 11/18/18 05:33 Urine Color Straw 11/18/18 09:15 Urine Appearance Clear 11/18/18 09:15 Urine pH 7.0 (5-9) 11/18/18 09:15 Ur Specific [place] 1.009 (1.010-1.030) L 11/18/18 09:15 Urine Protein Negative (Negative) 11/18/18 09:15 Urine Ketones Negative (Negative) 11/18/18 09:15 Urine Blood Negative (Negative) 11/18/18 09:15 Urine Nitrate Negative (Negative) 11/18/18 09:15 Urine Bilirubin Negative (Negative) 11/18/18 09:15 Urine Urobilinogen Negative (Negative) 11/18/18 09:15 Ur Leukocyte Esterase Negative (Negative) 11/18/18 09:15 Urine Glucose Negative (Negative) 11/18/18 09:15 Vancomycin Trough 12.7 mcg/mL 11/29/18 14:14 Serum Alcohol < 10 mg/dL (<10) 11/17/18 19:14 Group A Strep Rapid Positive (Negative) A 11/18/18 14:20 Vital Signs Temp 98.2 F 12/04/18 14:55 Pulse 84 12/04/18 14:55 Resp 13 12/04/18 18:40 BP 84/74 12/04/18 14:55 Pulse Ox 95 12/04/18 14:55 Intake & Output 12/04/18 12/04/18 12/05/18 06:59 18:59 06:59 Intake Total 480 560 Output Total 25 Balance 455 560 Intake: Oral 480 560 Output: Urine 25 Other: Estimated Void Medium Medium # Bowel Movements 0 0 # Voids 3 2
[2018-12-04] MEDS: Acetaminophen TAB* 325 MG PO PRN (20:06)
[2018-12-04] MEDS: Enoxaparin(*) 40 MG/0.4 ML SYR SUBCUT SCH (20:06)
[2018-12-04] MEDS: Tamsulosin CAP* 0.4 MG PO SCH (20:07)
[2018-12-04] MEDS: Melatonin 3 MG TAB PO SCH (20:07)
[2018-12-04] MEDS: Lidocaine Patch REMOVE* 1 NOTE MISC PATCH OFF SCH (20:18)
[2018-12-05] MEDS: traMADol TAB* 50 MG PO PRN ×2 (01:04→11:32)
[2018-12-05] MEDS: LORazepam INJ* 2 MG/ML 1 ML VIAL IV PUSH PRN ×4 (02:09→20:10)
[2018-12-05] MEDS: Morphine INJ* 4 MG/ML 1 ML SYRINGE (NEW SYRINGE VERSION) IV PRN ×5 (04:40→23:37)
[2018-12-05] MEDS: Magnesium Hydroxide LIQ* 30 ML UDC PO PRN (07:57)
[2018-12-05] MEDS: Atorvastatin* 80 MG TAB PO SCH (07:57)
[2018-12-05] MEDS: Sertraline* 25 MG TAB PO SCH (07:58)
[2018-12-05] MEDS: Aspirin EC TAB* 81 MG TAB.EC PO SCH (07:58)
[2018-12-05] MEDS: Folic Acid TAB* 1 MG PO SCH (07:58)
[2018-12-05] MEDS: Clopidogrel TAB* 75 MG PO SCH (07:58)
[2018-12-05] MEDS: QUEtiapine TAB* 25 MG PO SCH (07:58)
[2018-12-05] MEDS: Gabapentin CAP(*) 100 MG PO SCH ×3 (07:58→19:38)
[2018-12-05] MEDS: Metoprolol Succinate XL TAB* 50 MG PO SCH (07:58)
[2018-12-05] MEDS: Senna TAB 8.6 mg* TAB PO PRN (07:58)
[2018-12-05] MEDS: amLODIPine TAB* 5 MG PO SCH (07:59)
[2018-12-05] MEDS: Thiamine TAB* 100 MG TAB PO SCH (07:59)
[2018-12-05] MEDS: Lidocaine PATCH 5%* 1 PATCH TRANSDERM SCH (08:01)
[2018-12-05] MEDS: Amoxicillin/Clavulan* ORALSYR 80 MG/ML (400 MG/5 ML) PO SCH ×2 (08:01→23:07)
[2018-12-05] MEDS: Divalproex Sprinkle CAP* 125 MG PO SCH ×2 (08:16→23:07)
[2018-12-05] MEDS: Fluticasone NASAL SPRAY 50MCG* 16 gm SPRAY BTL BOTH NARES SCH (08:17)
[2018-12-05] MEDS ORDERED: Bisacodyl SUPP* 10 MG SUPP PR PRN (08:27)
[2018-12-05] MEDS ORDERED: Sodium Phosphate ADULT ENEMA* 118 ml bottle PR PRN (12:11)
[2018-12-05] MEDS: Polyethylene Glycol 3350* 17 GM PACKET PO SCH ×2 (13:24→23:09)
--- NOTE | 2018-12-05 15:03 | CONSULT ---
Identification - Patient Identification Reason for Psychiatric Consultation: Patient Distress -: Patient is a 62 year old, M admitted on 11/17/18. - MHU Identification Employment Status: Disabled Hx Psychiatric Hospitalization: No History - Objective HPI: Patient with a history of dementia with superimposed delirium seen on the fourth floor due to consistent agitation and yelling out. I spoke with 4th floor nursing, who report that he came from a nursing facility somewhere near [place], [place] and he is apparently awaiting possible amputation of his left foot due to gangrene. He is often thrashing in his bed, trying to get up, and neither repositioning, pain medications nor other comfort measures make much of a difference in these behaviors. He was already on sertraline, quetiapine and Depakote upon admission. The primary team has increased the quetiapine to 25mg in the morning and 50mg at night. They have just added low dose gabapentin for pain control and have periodically given him prn lorazepam. Unfortunately, none of these interventions has been helpful thus far and his frequent screaming has taken a toll on the therapeutic environment for peers on [address] [place] [address]. On exam his is naked in his bed, rolling back and forth and appearing to try to get up. He is totally disoriented to time/place/situation. Exam Appearance: Well Developed/Nourished Hygiene: Dirty Grooming: Disheveled Psychomotor Activities: Abnormal-Increased Exhibits Abnormal Movement: Yes Attitude and Relatedness: Regressed Eye Contact: Poor - Speech Quality: Unpressured Latencies: Short Quantity: Terse Observed Affect: Labile Affect Consistent with: Dysphoria Patient's Thought Process: Disorganized Level of Consciousness: Agitated Orientation: No Intact, No Orientated to Time, No Orientated to Place, No Orientated to Person Impulse Control: Poor Insight and Judgement: Impaired Impression - Impression Clinical Impression: 62 y.o. single, white male with a history of dementia and superimposed delirium hospitalized on the 4th floor for gangrene in his left foot and presenting with agitation. Inpatient DSM-V Dx: R41.0 Merits Inpatient Hospitalization: No BSU: Problem List - Patient Problems (1) Delirium Current Visit: Yes Status: Acute Priority: High Code(s): R41.0 - DISORIENTATION, UNSPECIFIED SNOMED Code(s): 4881459 Plan - Treatment Plan Treatment Plan: Will increase quetiapine to 100mg PO BID. Patient also on Depakote, gabapentin and sertraline. Will check VPA level in AM. Psychiatry will continue to follow. Continued Medication Management: Different Medication Medications: Current Medications Acetaminophen (Tylenol Tab*) 975 mg PO Q8H PRN PRN Reason: PAIN - MILD Last Admin: 12/04/18 20:06 Dose: 975 mg Amlodipine Besylate (Norvasc Tab*) 10 mg PO DAILY [facility] Last Admin: 12/05/18 07:59 Dose: 10 mg Amoxicillin/Clavulanate Potassium (Augmentin 80 Mg/Ml Susp* Oralsyr) 875 mg PO BID [facility] Last Admin: 12/05/18 08:01 Dose: 875 mg Aspirin (Aspirin Ec Tab*) 81 mg PO DAILY [facility] Last Admin: 12/05/18 07:58 Dose: 81 mg Atorvastatin Calcium (Lipitor*) 80 mg PO DAILY [facility] Last Admin: 12/05/18 07:57 Dose: 80 mg Bisacodyl (Dulcolax Supp*) 10 mg [place] DAILY PRN PRN Reason: CONSTIPATION Last Admin: 12/05/18 08:38 Dose: 10 mg Clopidogrel Bisulfate (Plavix Tab*) 75 mg PO DAILY [facility] Last Admin: 12/05/18 07:58 Dose: 75 mg Divalproex Sodium (Depakote Sprinkle Cap*) 125 mg PO BID [facility] Last Admin: 12/05/18 08:16 Dose: 125 mg Enoxaparin Sodium (Lovenox(*)) 40 mg SUBCUT Q24H [facility] Last Admin: 12/04/18 20:06 Dose: 40 mg Famotidine (Pepcid Tab*) 20 mg PO DAILY PRN PRN Reason: HEARTBURN Fluticasone Propionate (Flonase Nasal [place] 50mcg*) 1 spray BOTH NARES DAILY [facility] Last Admin: 12/05/18 08:17 Dose: Not Given Folic Acid (Folvite Tab*) 1 mg PO DAILY [facility] Last Admin: 12/05/18 07:58 Dose: 1 mg Gabapentin (Neurontin Cap(*)) 200 mg PO TID [facility] Last Admin: 12/05/18 07:58 Dose: 200 mg Glycerin (Glycerin Adult Supp*) 1 supp [place] DAILY PRN PRN Reason: CONSTIPATION Last Admin: 11/26/18 10:15 Dose: 1 supp Lidocaine (Lidoderm 5% Patch*) 2 patch TRANSDERM DAILY [facility] Last Admin: 12/05/18 08:01 Dose: 2 patch Lorazepam (Ativan Inj*) 1 mg IV PUSH Q6H PRN PRN Reason: Anxiety or Agitation Last Admin: 12/05/18 07:50 Dose: 1 mg Magnesium Hydroxide (Milk Of Magnesia Liq*) 30 ml PO DAILY PRN PRN Reason: CONSTIPATION Last Admin: 12/05/18 07:57 Dose: 30 ml Melatonin (Melatonin) 3 mg PO BEDTIME [facility] Last Admin: 12/04/18 20:07 Dose: 3 mg Metoprolol Succinate (Toprol Xl Tab*) 150 mg PO DAILY [facility] Last Admin: 12/05/18 07:58 Dose: 150 mg Miscellaneous (Ativan Pyxis Tello) 1 ea N/A .ATIVAN IV TELLO PRN PRN Reason: PYXIS TELLO Morphine Sulfate (Morphine Inj (Syringe)*) 4 mg IV Q3H PRN PRN Reason: PAIN - SEVERE Last Admin: 12/05/18 09:17 Dose: 4 mg Pharmacy Profile Note (Lidocaine Patch Remove*) 2 note PATCH OFF BEDTIME [facility] Last Admin: 12/04/18 20:18 Dose: 2 note Polyethylene Glycol/Electrolytes (Miralax*) 17 gm PO 0800,2100 [facility] Last Admin: 12/05/18 13:24 Dose: 17 gm Quetiapine Fumarate (Seroquel Tab*) 50 mg PO BEDTIME [facility] Last Admin: 12/04/18 20:07 Dose: 50 mg Quetiapine Fumarate (Seroquel Tab*) 25 mg PO DAILY [facility] Last Admin: 12/05/18 07:58 Dose: 25 mg Senna (Senokot 8.6 Mg Tab*) 1 tab PO QPM PRN PRN Reason: CONSTIPATION Last Admin: 12/05/18 07:58 Dose: 1 tab Sertraline HCl (Zoloft*) 25 mg PO DAILY [facility] Last Admin: 12/05/18 07:58 Dose: 25 mg Sodium Biphosphate/Sodium Phosphate (Fleet Enema*) 1 bottle [place] DAILY PRN PRN Reason: CONSTIPATION Tamsulosin HCl (Flomax Cap*) 0.4 mg PO BEDTIME [facility] Last Admin: 12/04/18 20:07 Dose: 0.4 mg Thiamine HCl (Vitamin B-1 Tab*) 100 mg PO DAILY [facility] Last Admin: 12/05/18 07:59 Dose: 100 mg Tramadol HCl (Ultram*) 50 mg PO Q6HR PRN PRN Reason: Pain - Moderate to Severe Last Admin: 12/05/18 11:32 Dose: 50 mg Ziprasidone (Geodon Im Inj*) 5 mg IM ONCE PRN PRN Reason: severe agitation Last Admin: 12/03/18 22:11 Dose: 5 mg
--- NOTE | 2018-12-05 15:57 | PN ---
Subjective Date of Service: 12/05/18 Interval History: Pt is laying in bed sleeping. He wakes easily and responds to questions, but drifts back asleep. He is no longer yelling out, is calm and intermittently solmnolent. He denies pain. Family History: Unchanged from Admission Social History: Unchanged from Admission Past Medical History: Unchanged from Admission Objective Active Medications: Acetaminophen (Tylenol Tab*) 975 mg PO Q8H PRN Amlodipine Besylate (Norvasc Tab*) 10 mg PO DAILY [facility] Amoxicillin/Clavulanate Potassium (Augmentin 80 Mg/Ml Susp* Oralsyr) 875 mg PO BID [facility] Aspirin (Aspirin Ec Tab*) 81 mg PO DAILY [facility] Atorvastatin Calcium (Lipitor*) 80 mg PO DAILY [facility] Bisacodyl (Dulcolax Supp*) 10 mg [place] DAILY PRN Clopidogrel Bisulfate (Plavix Tab*) 75 mg PO DAILY [facility] Divalproex Sodium (Depakote Sprinkle Cap*) 125 mg PO BID [facility] Enoxaparin Sodium (Lovenox(*)) 40 mg SUBCUT Q24H [facility] Famotidine (Pepcid Tab*) 20 mg PO DAILY [facility] Fluticasone Propionate (Flonase Nasal [place] 50mcg*) 1 spray BOTH NARES DAILY [facility] Folic Acid (Folvite Tab*) 1 mg PO DAILY [facility] Gabapentin (Neurontin Cap(*)) 200 mg PO TID [facility] Glycerin (Glycerin Adult Supp*) 1 supp AR DAILY PRN Lidocaine (Lidoderm 5% Patch*) 2 patch TRANSDERM DAILY [facility] Lorazepam (Ativan Inj*) 1 mg IV PUSH Q6H PRN Magnesium Hydroxide (Milk Of Magnesia Liq*) 30 ml PO DAILY PRN Melatonin (Melatonin) 3 mg PO BEDTIME [facility] Metoprolol Succinate (Toprol Xl Tab*) 150 mg PO DAILY [facility] Miscellaneous (Ativan Pyxis Tello) 1 ea N/A .ATIVAN IV TELLO PRN Morphine Sulfate (Morphine Inj (Syringe)*) 4 mg IV Q3H PRN Pharmacy Profile Note (Lidocaine Patch Remove*) 2 note PATCH OFF BEDTIME [facility] Polyethylene Glycol/Electrolytes (Miralax*) 17 gm PO 0800,2100 [facility] Quetiapine Fumarate (Seroquel Tab*) 100 mg PO BID [facility] Senna (Senokot 8.6 Mg Tab*) 1 tab PO QPM PRN Sertraline HCl (Zoloft*) 25 mg PO DAILY [facility] Sodium Biphosphate/Sodium Phosphate (Fleet Enema*) 1 bottle [place] DAILY PRN Tamsulosin HCl (Flomax Cap*) 0.4 mg PO BEDTIME [facility] Thiamine HCl (Vitamin B-1 Tab*) 100 mg PO DAILY [facility] Tramadol HCl (Ultram*) 50 mg PO Q6HR PRN Ziprasidone (Geodon Im Inj*) 5 mg IM ONCE PRN Vital Signs: Temp Pulse Resp BP Pulse Ox 97.2 F 72 16 129/63 99 12/05/18 11:00 12/05/18 11:00 12/05/18 16:27 12/05/18 11:00 12/05/18 11:00 Oxygen Devices in Use Now: None Appearance: Pt is laying in bed sleeping, he wakes easily, answers some questions, and drifts back to sleep. No acute distress. Ears/Nose/Mouth/Throat: NL Teeth, Lips, Gums, Clear Oropharnyx, - - Mildly dry Neck: NL Appearance and Movements; NL JVP, Trachea Midline Respiratory: Symmetrical Chest Expansion and Respiratory Effort, Clear to Auscultation - Does not follow instructions for deep breathing Cardiovascular: NL Sounds; No Murmurs; No JVD, RRR Abdominal: NL Sounds; No Tenderness; No Distention, No Hepatosplenomegaly Extremities: No Clubbing, Cyanosis, - - 1+ pitting pedal edema to LLE. L 3-5 digits with dry gangrene. Neurological: Alert and Oriented x 3 Result Diagrams: 12/05/18 17:31 12/03/18 07:11 Additional Lab and Data: Above labs were pulled into the note when edited prior to signing, below are the labs from the day of consultation. Laboratory Tests 11/17/18 11/19/18 11/21/18 19:14 10:55 12:04 WBC 7.5 Hgb 9.7 L Hct 29 L Plt Count 280 Sodium 128 L Potassium 4.8 Chloride 99 L Carbon Dioxide 21 L BUN 20 Creatinine 0.69 Glucose 93 C-Reactive Protein 16.02 H Total Protein 5.9 L Albumin 3.0 L Microbiology and Other Data: Microbiology 11/17/18 19:49 Aerobic Blood Culture - Preliminary Blood Venous No Growth Day 2 Anaerobic Blood Culture - Preliminary No Growth Day 2 11/17/18 19:49 Aerobic Blood Culture - Preliminary Blood Venous No Growth Day 2 Anaerobic Blood Culture - Preliminary No Growth Day 2 11/18/18 00:00 Nasal Screen MRSA (PCR) - Final Nasal Mrsa Not Detected Diagnostic Imaging: Exam Date: 11/17/18 1859 - FOOT LEFT 3+ VWS IMPRESSION: 1. Subcutaneous emphysema about the distal first phalanx with no clear osseous destruction. 2. No fracture. Exam Date: 11/20/18 0000 - VL LOWER EXT VEINS BILATERAL IMPRESSION: 1. NO RIGHT LOWER EXTREMITY DEEP VEIN THROMBOSIS. 2. NO LEFT LOWER EXTREMITY DEEP VEIN THROMBOSIS. 3. 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 - Patient Problems (1) Gangrene of left foot Comment: - Partially due to PAD - Left great toe drainage culture with MRSA and proteus; MRI without osteo. - S/p pelvic and L leg arteriography (12/01). - Cont Augmentin (11/18 - ) only, per ID recs - S/P vanc (11/17 - 11/30) - Drs. Rodriguez and Laxmi consulting - Ortho recommends wound care, continued Augmentin, no surgical intervention unless worsening - Cont ASA and clopidogrel (2) Acute delirium Comment: - Multifactorial, likely combination of CVA with residual deficits, hospitalization, med AE, and infection. Per niece, patient has had periods of delerium since his stroke in June, but this is the worst she's seen. Discussed possibility of new stroke, given carotid occlusions, however, patient cannot tolerate sitting for long periods and cannot follow commands for MRI, and patient is already on DAPT and statin and optimized medically - Urgent need would be to continue to treat infection, prevent bacteremia/ sepsis and to identify surgical plan while continuing symptom management - Continue prn ativan for severe agitation - quetiapine BID, melatonin nightly - Add gabapentin for possible nerve pain in setting of gangrene to L foot - avoid Beers meds as able - minimize disturbance, keep near window, quiet room - Consulted psych- recommend 100 seroquel BID (3) Anemia Comment: - Stable - Suspect anemia of chronic disease due to foot infection (4) Lower extremity edema Comment: - With associated wounds, new in the last 2 months. ? Related to venous stasis. - B/L LE US unremarkable except for atherosclerosis. - TTE with grade 1 diastolic dsfnx. - Lasix PRN - Improving (5) Hypertension Comment: - Continue metoprolol 150, amlodipine 10 (6) Hyperlipidemia Comment: - Continue atorvastatin (7) History of CVA with residual deficit Comment: - Baseline residual right sided hemiparesis and chronic encephalopathic changes /dementia - Continue aspirin, Plavix, atorvastatin - Continue depakote bid, sertraline daily - B/L Carotid Occlusion with distal reconstitution, avoid hypotension if possible (8) Anxiety Comment: - Continue sertraline - Ativan prn only for severe anxiety and agitation, limit use (9) GERD (gastroesophageal reflux disease) Comment: - continue home famotidine prn (10) DVT prophylaxis Comment: - Lovenox (11) DNR (do not resuscitate) Comment: Status and Disposition: Inpatient, anticipate d/c back to [place] when medically stable after multiple procedures.
--- NOTE | 2018-12-05 17:32 | PN ---
Progress Note - Progress Note Date of Service: 12/05/18 SOAP: Subjective: []Pt seen at bedside. He does not communicate with me, he is sedated today and noncombative. Objective: [] Gen: NAD Left foot: No erythema or edema. Dry gangrene of 4th toe. Toes 2,3,5 mildly dusky under the nail beds which seems to be improving. Great toe without any active purulence and no obvious tenderness to palpation. Dorsal lateral foot with dry superficial ulcer roughly quarter sized. Heel ulcer dry unroofed, is superficial without any discharge. DP pulse palpable. Assessment: [] Left foot dry gangrene 4th toe status post pelvic and left leg arteriography, revascularization of 22cm length left SFA occlusion, left SFA stenting and balloon angioplasty from left RADHA to the junction of the left SFA/popliteal. Plan: []abx per medicine - augmentin Wound care Continue Plavix 75 mg and ASA 81 mg PO daily per vasc Discussed case with Dr Hair. No operative procedure planned at this time, he is ready for DC from ortho standpoint. Patient is not systemically ill and no need to urgently address dry gangrene. Should he become systemically ill or foot appears actively infected, please contact orthopedics to discuss surgical necessity at that time. Vital Signs Temp 97.2 F 12/05/18 11:00 Pulse 72 12/05/18 11:00 Resp 16 12/05/18 16:27 BP 129/63 12/05/18 11:00 Pulse Ox 99 12/05/18 11:00 Intake & Output 12/04/18 12/05/18 12/05/18 18:59 06:59 18:59 Intake Total 560 0 650 Balance 560 0 650 Weight 169 lb 6.4 oz Intake: Oral 560 0 650 Other: Estimated Void Medium Medium Medium # Bowel Movements 0 0 # Voids 2 1 1 Laboratory Last Values WBC 5.5 10^3/uL (3.5-10.8) 12/03/18 07:11 RBC 2.91 10^6 /uL (4.18-5.48) L 12/03/18 07:11 Hgb 9.0 g/dL (14.0-18.0) L 12/03/18 07:11 Hct 27 % (42-52) L 12/03/18 07:11 MCV 91 fL (80-94) 12/03/18 07:11 MCH 31 pg (27-31) 12/03/18 07:11 MCHC 34 g/dL (31-36) 12/03/18 07:11 RDW 17 % (10-15) H 12/03/18 07:11 Plt Count 196 10^3/uL (150-450) 12/03/18 07:11 MPV 7.3 fL (7.4-10.4) L 12/03/18 07:11 Neut % (Auto) 56.8 % 12/03/18 07:11 Lymph % (Auto) 22.4 % 12/03/18 07:11 [place] % (Auto) 13.0 % 12/03/18 07:11 Eos % (Auto) 7.3 % 12/03/18 07:11 Baso % (Auto) 0.5 % 12/03/18 07:11 Absolute Neuts (auto) 3.1 10^3/ul (1.5-7.7) 12/03/18 07:11 Absolute Lymphs (auto) 1.2 10^3/ul (1.0-4.8) 12/03/18 07:11 Absolute Monos (auto) 0.7 10^3/ul (0-0.8) 12/03/18 07:11 Absolute Eos (auto) 0.4 10^3/ul (0-0.6) 12/03/18 07:11 Absolute Basos (auto) 0.0 10^3/ul (0-0.2) 12/03/18 07:11 Absolute Nucleated RBC 0.0 10^3/ul 12/03/18 07:11 Nucleated RBC % 0.1 12/03/18 07:11 INR (Anticoag Therapy) 1.06 (0.82-1.09) 11/23/18 05:58 APTT 38.0 seconds (26.0-38.0) 11/17/18 19:14 POC Activ Clotting Time < 135 seconds 12/01/18 11:14 Sodium 133 mmol/L (135-145) L 12/03/18 07:11 Potassium 3.9 mmol/L (3.5-5.0) 12/03/18 07:11 Chloride 99 mmol/L (101-111) L 12/03/18 07:11 Carbon Dioxide 29 mmol/L (22-32) 12/03/18 07:11 Anion Gap 5 mmol/L (2-11) 12/03/18 07:11 BUN 15 mg/dL (6-24) 12/03/18 07:11 Creatinine 0.78 mg/dL (0.67-1.17) 12/03/18 07:11 Est GFR ( Amer) 121.6 (>60) 12/03/18 07:11 Est GFR (Non-Af Amer) 100.5 (>60) 12/03/18 07:11 BUN/Creatinine Ratio 19.2 (8-20) 12/03/18 07:11 Glucose 83 mg/dL (70-100) 12/03/18 07:11 POC Glucose (mg/dL) 92 mg/dL (70-100) 12/01/18 08:02 Lactic Acid 2.0 mmol/L (0.5-2.0) 11/17/18 22:39 Calcium 8.8 mg/dL (8.6-10.3) 12/03/18 07:11 Magnesium 1.9 mg/dL (1.9-2.7) 12/03/18 07:11 Iron 39 ug/dL (50-212) L 11/18/18 05:33 TIBC 252 mcg/dL (250-450) 11/18/18 05:33 % Saturation 15 % (15-55) 11/18/18 05:33 Unsat Iron Binding < 237 ug/dL 11/18/18 05:33 Transferrin 180 mg/dL (203-362) L 11/18/18 05:33 Ferritin 257.2 ng/mL (24-336) 11/18/18 05:33 Total Bilirubin 0.20 mg/dL (0.2-1.0) 11/25/18 05:26 AST 14 U/L (13-39) 11/25/18 05:26 ALT 30 U/L (7-52) 11/25/18 05:26 Alkaline Phosphatase 69 U/L (34-104) 11/25/18 05:26 Ammonia 46 mcmol/L (16-53) 11/17/18 22:39 Troponin I 0.00 ng/mL (<0.04) 11/17/18 22:41 C-Reactive Protein 14.13 mg/L (<8.01) H 11/25/18 05:26 Total Protein 6.4 g/dL (6.4-8.9) 11/25/18 05:26 Albumin 3.3 g/dL (3.2-5.2) 11/25/18 05:26 Globulin 3.1 g/dL (2-4) 11/25/18 05:26 Albumin/Globulin Ratio 1.1 (1-3) 11/25/18 05:26 Vitamin B12 247 pg/mL (180-914) 11/18/18 05:33 Folate 19.14 ng/mL (>3.99) 11/18/18 05:33 Urine Color Straw 11/18/18 09:15 Urine Appearance Clear 11/18/18 09:15 Urine pH 7.0 (5-9) 11/18/18 09:15 Ur Specific [place] 1.009 (1.010-1.030) L 11/18/18 09:15 Urine Protein Negative (Negative) 11/18/18 09:15 Urine Ketones Negative (Negative) 11/18/18 09:15 Urine Blood Negative (Negative) 11/18/18 09:15 Urine Nitrate Negative (Negative) 11/18/18 09:15 Urine Bilirubin Negative (Negative) 11/18/18 09:15 Urine Urobilinogen Negative (Negative) 11/18/18 09:15 Ur Leukocyte Esterase Negative (Negative) 11/18/18 09:15 Urine Glucose Negative (Negative) 11/18/18 09:15 Vancomycin Trough 12.7 mcg/mL 11/29/18 14:14 Serum Alcohol < 10 mg/dL (<10) 11/17/18 19:14 Group A Strep Rapid Positive (Negative) A 11/18/18 14:20
[2018-12-05 17:41] LABS: ABS Basophils 0.1 10^3/ul (0-0.2); ABS Eosinophils 0.3 10^3/ul (0-0.6); ABS Lymphocytes 1.1 10^3/ul (1.0-4.8); ABS Monocytes 0.7 10^3/ul (0-0.8); ABS Neutrophils 4.7 10^3/ul (1.5-7.7); Hematocrit 30 % (42-52); Hemoglobin 9.8 g/dL (14.0-18.0); Lymphocyte % 16.1 %; Mean Corpuscular HGB Conc 33 g/dL (31-36); Mean Corpuscular Hemoglobin 30 pg (27-31); Mean Corpuscular Volume 92 fL (80-94); Mean Platelet Volume 7.2 fL (7.4-10.4); Platelet Count 247 10^3/uL (150-450); Red Blood Count 3.23 10^6 /uL (4.18-5.48); Red Cell Distribution Width 17 % (10-15); White Blood Count 6.7 10^3/uL (3.5-10.8)
[2018-12-05 18:10] LABS: Potassium 4.3 mmol/L (3.5-5.0)
[2018-12-05 18:16] LABS: BUN/Creatinine Ratio 24.1 (8-20); EGFR African American 113.2 (>60); EGFR Non-African American 93.6 (>60)
[2018-12-05] MEDS: Acetaminophen TAB* 325 MG PO PRN (19:39)
[2018-12-05] MEDS: QUEtiapine TAB* 100 MG PO SCH (23:07)
[2018-12-05] MEDS: Melatonin 3 MG TAB PO SCH (23:07)
[2018-12-05] MEDS: Tamsulosin CAP* 0.4 MG PO SCH (23:07)
[2018-12-05] MEDS: Lidocaine Patch REMOVE* 1 NOTE MISC PATCH OFF SCH (23:34)
[2018-12-06] MEDS: Enoxaparin(*) 40 MG/0.4 ML SYR SUBCUT SCH (00:55)
[2018-12-06] MEDS: LORazepam INJ* 2 MG/ML 1 ML VIAL IV PUSH PRN ×2 (02:17→08:41)
[2018-12-06] MEDS: Morphine INJ* 4 MG/ML 1 ML SYRINGE (NEW SYRINGE VERSION) IV PRN (07:43)
[2018-12-06] MEDS: QUEtiapine TAB* 100 MG PO SCH (07:44)
[2018-12-06] MEDS ORDERED: Divalproex Sprinkle CAP* 125 MG PO SCH (09:00)
[2018-12-06] MEDS: Thiamine TAB* 100 MG TAB PO SCH (09:32)
[2018-12-06] MEDS: Metoprolol Succinate XL TAB* 50 MG PO SCH (09:34)
[2018-12-06] MEDS: Gabapentin CAP(*) 100 MG PO SCH (09:36)
[2018-12-06] MEDS: Clopidogrel TAB* 75 MG PO SCH (09:43)
[2018-12-06] MEDS: Atorvastatin* 80 MG TAB PO SCH (09:47)
[2018-12-06] MEDS: Sertraline* 25 MG TAB PO SCH (09:47)
[2018-12-06] MEDS: Folic Acid TAB* 1 MG PO SCH (09:47)
[2018-12-06] MEDS: Polyethylene Glycol 3350* 17 GM PACKET PO SCH (09:48)
[2018-12-06] MEDS: Magnesium Hydroxide LIQ* 30 ML UDC PO PRN (09:48)
[2018-12-06] MEDS: Lidocaine PATCH 5%* 1 PATCH TRANSDERM SCH (09:49)
[2018-12-06] MEDS: Amoxicillin/Clavulan* ORALSYR 80 MG/ML (400 MG/5 ML) PO SCH (09:51)
[2018-12-06] MEDS: Aspirin EC TAB* 81 MG TAB.EC PO SCH ×2 (09:51→10:07)
[2018-12-06] MEDS: amLODIPine TAB* 5 MG PO SCH (09:51)
[2018-12-06] MEDS: Fluticasone NASAL SPRAY 50MCG* 16 gm SPRAY BTL BOTH NARES SCH (10:14)
[2018-12-06] MEDS: Divalproex Sprinkle CAP* 125 MG PO SCH (10:14)
[2018-12-06 10:20] VITALS: BP 154/78
--- NOTE | 2018-12-06 11:21 | CONSULT ---
Identification - Patient Identification Reason for Psychiatric Consultation: Patient Distress -: Patient is a 62 year old, M admitted on 11/17/18. - MHU Identification Employment Status: Disabled Hx Psychiatric Hospitalization: No History - Objective HPI: Alex is seen for follow up. After increasing his quetiapine last night and this morning the patient appears more comfortable and he is resting in his bed as I enter. He is unable to answer questions with anything but basic "yes" answers. Staff report he had some screaming in the late evening and some this morning. Exam Appearance: Well Developed/Nourished Hygiene: Dirty Grooming: Disheveled Psychomotor Activities: Abnormal-Increased Exhibits Abnormal Movement: Yes Attitude and Relatedness: Regressed Eye Contact: Poor - Speech Quality: Unpressured Latencies: Short Quantity: Terse Observed Affect: Labile Affect Consistent with: Dysphoria Patient's Thought Process: Disorganized Level of Consciousness: Agitated Orientation: No Intact, No Orientated to Time, No Orientated to Place, No Orientated to Person Impulse Control: Poor Insight and Judgement: Impaired Impression - Impression Clinical Impression: 62 y.o. single, white male with a history of dementia and superimposed delirium hospitalized on the 4th floor for gangrene in his left foot and presenting with agitation. Inpatient DSM-V Dx: R41.0 Merits Inpatient Hospitalization: No BSU: Problem List - Patient Problems (1) Delirium Current Visit: Yes Status: Acute Priority: High Code(s): R41.0 - DISORIENTATION, UNSPECIFIED SNOMED Code(s): 5354727 Plan - Treatment Plan Treatment Plan: We have increased quetiapine to 100mg PO BID. The patient is also on Depakote, gabapentin and sertraline. VPA level was grossly subtherapeutic this AM at 15.0. We will increase Depakote sprinkles to 250mg PO TID. Psychiatry will continue to follow. Continued Medication Management: Different Medication Medications: Current Medications Acetaminophen (Tylenol Tab*) 975 mg PO Q8H PRN PRN Reason: PAIN - MILD Last Admin: 12/05/18 19:39 Dose: 975 mg Amlodipine Besylate (Norvasc Tab*) 10 mg PO DAILY [facility] Last Admin: 12/06/18 09:51 Dose: Not Given Amoxicillin/Clavulanate Potassium (Augmentin 80 Mg/Ml Susp* Oralsyr) 875 mg PO BID [facility] Last Admin: 12/06/18 09:51 Dose: 875 mg Aspirin (Aspirin Ec Tab*) 81 mg PO DAILY [facility] Last Admin: 12/06/18 10:07 Dose: Not Given Atorvastatin Calcium (Lipitor*) 80 mg PO DAILY [facility] Last Admin: 12/06/18 09:47 Dose: 80 mg Bisacodyl (Dulcolax Supp*) 10 mg AR DAILY PRN PRN Reason: CONSTIPATION Last Admin: 12/05/18 08:38 Dose: 10 mg Clopidogrel Bisulfate (Plavix Tab*) 75 mg PO DAILY [facility] Last Admin: 12/06/18 09:43 Dose: 75 mg Divalproex Sodium (Depakote Sprinkle Cap*) 250 mg PO TID [facility] Last Admin: 12/06/18 09:32 Dose: 250 mg Enoxaparin Sodium (Lovenox(*)) 40 mg SUBCUT Q24H [facility] Last Admin: 12/06/18 00:55 Dose: 40 mg Famotidine (Pepcid Tab*) 20 mg PO DAILY PRN PRN Reason: HEARTBURN Fluticasone Propionate (Flonase Nasal [place] 50mcg*) 1 spray BOTH NARES DAILY [facility] Last Admin: 12/06/18 10:14 Dose: Not Given Folic Acid (Folvite Tab*) 1 mg PO DAILY [facility] Last Admin: 12/06/18 09:47 Dose: 1 mg Gabapentin (Neurontin Cap(*)) 200 mg PO TID [facility] Last Admin: 12/06/18 09:36 Dose: 200 mg Glycerin (Glycerin Adult Supp*) 1 supp AR DAILY PRN PRN Reason: CONSTIPATION Last Admin: 11/26/18 10:15 Dose: 1 supp Lidocaine (Lidoderm 5% Patch*) 2 patch TRANSDERM DAILY [facility] Last Admin: 12/06/18 09:49 Dose: 2 patch Lorazepam (Ativan Inj*) 1 mg IV PUSH Q6H PRN PRN Reason: Anxiety or Agitation Last Admin: 12/06/18 08:41 Dose: 1 mg Magnesium Hydroxide (Milk Of Magnesia Liq*) 30 ml PO DAILY PRN PRN Reason: CONSTIPATION Last Admin: 12/06/18 09:48 Dose: 30 ml Melatonin (Melatonin) 3 mg PO BEDTIME [facility] Last Admin: 12/05/18 23:07 Dose: 3 mg Metoprolol Succinate (Toprol Xl Tab*) 150 mg PO DAILY [facility] Last Admin: 12/06/18 09:34 Dose: 150 mg Miscellaneous (Ativan Pyxis Tello) 1 ea N/A .ATIVAN IV TELLO PRN PRN Reason: PYXIS TELLO Morphine Sulfate (Morphine Inj (Syringe)*) 4 mg IV Q3H PRN PRN Reason: PAIN - SEVERE Last Admin: 12/06/18 07:43 Dose: 4 mg Pharmacy Profile Note (Lidocaine Patch Remove*) 2 note PATCH OFF BEDTIME [facility] Last Admin: 12/05/18 23:34 Dose: Not Given Polyethylene Glycol/Electrolytes (Miralax*) 17 gm PO 0800,2100 [facility] Last Admin: 12/06/18 09:48 Dose: 17 gm Quetiapine Fumarate (Seroquel Tab*) 100 mg PO BID [facility] Last Admin: 12/06/18 07:44 Dose: 100 mg Senna (Senokot 8.6 Mg Tab*) 1 tab PO QPM PRN PRN Reason: CONSTIPATION Last Admin: 12/05/18 07:58 Dose: 1 tab Sertraline HCl (Zoloft*) 25 mg PO DAILY [facility] Last Admin: 12/06/18 09:47 Dose: 25 mg Sodium Biphosphate/Sodium Phosphate (Fleet Enema*) 1 bottle AR DAILY PRN PRN Reason: CONSTIPATION Tamsulosin HCl (Flomax Cap*) 0.4 mg PO BEDTIME [facility] Last Admin: 12/05/18 23:07 Dose: 0.4 mg Thiamine HCl (Vitamin B-1 Tab*) 100 mg PO DAILY [facility] Last Admin: 12/06/18 09:32 Dose: 100 mg Ziprasidone (Geodon Im Inj*) 5 mg IM ONCE PRN PRN Reason: severe agitation Last Admin: 12/03/18 22:11 Dose: 5 mg
--- NOTE | 2018-12-06 13:59 | DS ---
CC: Dr. Eve West; Dr. Schaffer; Dr. Rodriguez; Dr. Hair * DISCHARGE SUMMARY: DATE OF ADMISSION: 11/18/18 DATE OF DISCHARGE: PRIMARY CARE PROVIDER: Dr. Eve West. OTHER PROVIDERS: Dr. Schaffer, Dr. Rodriguez, Dr. Hair. ATTENDING PHYSICIAN: Sharri Saldivar MD * (dictated by SHAYNA Willoughby). DISCHARGE DIAGNOSES: 1. Dry gangrene, left foot digits 3 to 5. 2. Acute delirium. 3. Anemia of chronic disease. SECONDARY DIAGNOSES: 1. Atrial septal defect. 2. Hypertension. 3. Hyperlipidemia. 4. 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 5. Bilateral carotid occlusion. 6. Chronic lower extremity edema. 7. Chronic lower extremity wounds. 8. Gastroesophageal reflux disease. 9. Anxiety. STUDIES WHILE IN THE HOSPITAL: 1. Transthoracic echocardiogram, summary: LV systolic function normal, estimated EF 55% to 60%, wall motion normal, no regional wall motional abnormalities. RV systolic function normal, mild MR, trace to mild TR, no pericardial effusion, systolic pressure cannot be accurately estimated. 2. Bilateral lower extremity Doppler ultrasound, impression: No right lower extremity DVT, no left lower extremity DVT. Atherosclerosis. 3. Left lower extremity MRI, impression: Soft tissue edema about toes and generalized about forefoot without significant focality. No loculated soft tissue plane abscess collection evident. There is no compelling bone marrow edema or loss of normal T1 hyperintensity to indicate osteomyelitis at this time. Negative for joint effusion. 4. 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 Bilaterally, there are occlusions of superficial femoral artery measuring approximately 25 cm right, 20 cm left distally. There is inflow through popliteal arteries with two-vessel runoff provided by [employer] and peroneal arteries bilaterally. 5. Bilateral carotid ultrasound, impression: Study technically limited. There is occlusion of the right internal carotid artery. Evaluation of the left internal carotid artery is nondiagnostic. CONSULTATIONS WHILE IN THE HOSPITAL: 1. Wound consult. Recommend dry dressing to protect area of left foot. Keep right heel elevated off bed for unstaged pressure injury, barrier cream to buttocks, frequent turning and repositioning. 2. Ortho consult. Recommend MRI, ABIs. The patient unable to tolerate MRI even with sedation. Bone scan ordered. Dr. Rodriguez has been consulted. Weight bear as tolerated. If he has poor blood flow, which is anticipated, then optimally vascular intervention will be done first as long as he is not systemically ill. 3. Interventional Radiology. CT angio of aorta with runoff may require sedation. Following runoff, we will determine need and feasibility of endovascular revascularization to support lower extremity wound healing. 4. Infectious Disease. Stop vancomycin and continue Augmentin as prophylaxis to soft tissue infection adjacent to areas of dry gangrene in the setting of upcoming revascularization procedure. PROCEDURES WHILE IN THE HOSPITAL: Interventional angiography. Diagnostic pelvic and left lower extremity arteriogram. Revascularization of occluded left superficial femoral artery, balloon angio of left common iliac artery, external iliac artery, common femoral artery, and superficial femoral artery. Long segment stenting of left superficial femoral artery. DISCHARGE MEDICATIONS: Home medications: 1. Acetaminophen 100 mg p.o. t.i.d. p.r.n. q.8 hour scheduled. 2. Alprazolam 0.25 mg p.o. b.i.d. p.r.n. agitation/anxiety. 3. Amlodipine 10 mg p.o. daily. 4. Aspirin 81 mg p.o. daily. 5. Atorvastatin 80 mg p.o. daily. 6. Cholecalciferol 50,000 units p.o. weekly. 7. Clopidogrel 75 mg p.o. daily. 8. Divalproex Sprinkles 125 mg p.o. b.i.d. 9. Fluticasone nasal spray 1 spray to both nares daily. 10. Folic acid 1 mg p.o. daily. 11. Furosemide 20 mg p.o. daily. 12. Gabapentin 200 mg p.o. t.i.d. 13. Glycerin suppository 1 suppository daily p.r.n. constipation. 14. Lidocaine patch 5% two patches transdermally daily. 15. Magnesium hydroxide 30 mL p.o. daily p.r.n. constipation. 16. Melatonin 5 mg p.o. at bedtime. 17. Metoprolol succinate XL 150 mg p.o. daily. 18. Omeprazole 40 mg p.o. daily. 19. Potassium chloride 20 mEq p.o. daily. 20. Quetiapine 100 mg p.o. b.i.d. 21. Ranitidine 75 mg p.o. b.i.d. 22. Senna tab 8.6 one tab p.o. at bedtime p.r.n. constipation. 23. Sertraline 25 mg p.o. b.i.d. 24. Tamsulosin 0.4 mg p.o. at bedtime. 25. Thiamine 100 mg p.o. daily. 26. Tramadol 50 mg p.o. q.6 hours p.r.n. pain. 27. Trazodone 100 mg p.o. at bedtime p.r.n. New home medications: 1. Tylenol [id number]. 2. Gabapentin. 3. Quetiapine. HISTORY OF PRESENT ILLNESS/HOSPITAL COURSE: Mr. Fuentes is a 62-year-old male with a past medical history of hypertension, hyperlipidemia, CVA in 2019 with resulting right hemiplegia. He has been in a senior care since this time, first [place], then [facility]. For full and complete details, please see the history and physical dictated by Don Redmond MD, but in short, the patient presents with worsening fourth and fifth digit wounds on the left foot. He wass admitted with concerns for osteomyelitis. MRI was performed and showed no osteomyelitis. Wound cultures were obtained from the left foot and revealed MRSA proteus. The patient was started on vancomycin. ID was consulted and they recommended continuation of Augmentin. Ortho was consulted and recommended revascularization. Interventional Radiology was consulted. They performed revascularization of the left SFA as well as balloon angio to left common iliac, external iliac and common femoral artery. After this, the lower extremity wounds to the digits of the left foot, digits 3 through 4 improved somewhat, although the fourth toe remained completely blackened. Due to the improvement in the patient's appearance, Ortho recommended foregoing surgical intervention and continuing conservative treatment. The patient will be continued on Plavix 75, aspirin 81. Wound Clinic recommends protective wrapping of the left foot, which has been ordered. The patient's foot appears to be improving. There are no signs of local or systemic infection. He will follow up with Dr. Hair, Orthopedics, in 2 to 4 weeks, sooner if he does become systemically ill or the foot appears infected. The patient was noted to have bilateral lower extremity edema. An ultrasound was ordered and was negative except for atherosclerosis. Echocardiogram was also ordered and was unremarkable. He will be continued on furosemide at the time of discharge. His lower extremity edema is almost resolved with trace left pedal edema remaining. During the patient's stay, he suffered from acute delirium. This was likely in combination of hospitalization in the setting of infection and possibly residual effects of CVA contributing. The patient's care was discussed with his niece and healthcare proxy, Gwendolyn Gutierrez. She notes that he has had periods of delirium since his stroke in June, but that this appears to be worse. We discussed the possibility of new stroke especially in the setting of carotid occlusion, but the patient cannot tolerate an MRI. He will continue his dual-antiplatelet therapy and statin. Psych was consulted for further recommendations regarding the patient's delirium and recommended Seroquel 100 b.i.d. which has been started. The patient will be discharged home on this medication. REVIEW OF SYSTEMS: Limited due to the patient's inability to participate. He was napping at the time of this interview and would intermittently wake up, but fell back asleep. He does report that he has no pain in the foot and that he is comfortable. PHYSICAL EXAMINATION: Vital Signs: Temperature 98.7 oral, heart rate 63, respiratory rate 16, oxygen saturation 100% on room air, blood pressure 154/78. General: Mr. Fuentes is a well-developed, well-nourished, middle-aged white male who is lying in bed asleep. He is undressed. He wakes up to touch and sound, but only occasionally answers questioning. He does not appear to be in acute distress. HEENT: PERRL. Nonicteric sclerae. Hearing appears to be grossly intact. Oral mucous membranes are mildly dry. Cardiovascular: Regular rate and rhythm with S1, S2 present without murmurs, rubs, clicks, or gallops. There is no JVD. There is trace left pedal edema. Pulmonary: Symmetrical chest expansion without the use of accessory muscles. Lungs: Clear to auscultation bilaterally without rhonchi, wheezes, or rubs anteriorly, although the patient is unable to follow instructions for deep breathing. Abdomen: Flat. Bowel sounds in all quadrants. The abdomen is soft. There is no tenderness to palpation. Musculoskeletal: There is a left heel pressure ulcer that appears to be healing without any open area, discharge, or erythema. The left third through fourth digits on the foot have areas of black and dry gangrene with the fourth digit being the worse. The entire fourth digit has dry gangrene. There is no surrounding erythema. There is no discharge from these areas. They appear nontender to palpation. There is some pedal edema, but nothing significant. Neuro: The patient is sleeping, but wakes. He does not respond to review of systems questioning. He is unable to follow instructions for assessment of cranial nerves and strength, but it is noted that he does move all of his extremities. DISCHARGE PLAN: Mr. Fuentes is stable for discharge to [facility]. CONDITION: Stable. DIET: Return to home diet. ACTIVITY: As tolerated. MEDICATIONS: 1. Continue pain management with gabapentin, [id number] Tylenol 1 g q.8 hours, tramadol q.6 hours p.r.n. 2. Continue Seroquel 100 mg p.o. b.i.d. 3. Continue aspirin and Plavix. EDUCATION: 1. Keep left foot wrapped and protected with clean, dry dressing. 2. Keep left heel elevated. 3. Follow up with primary care provider in 4 to 7 days. 4. Follow up with Dr. Hair in 2 to 4 weeks for followup on left foot. 5. Follow up sooner or seek medical attention at ER if there is a concern for infection. 6. Follow up with Dr. Rodriguez in 2 to 4 weeks for followup on revascularization. 7. Return to the ER or nearest hospital if you there are any signs or symptoms of infection such as erythema, edema, increased pain, discharge or drainage from the wounds on the left foot. Return for fever, chills, or sweats. Return for a chest pain or discomfort, shortness of breath, dizziness, lightheadedness , loss of consciousness, high fevers, chills, night sweats or any other worrisome signs or symptoms. This is a summarized report of a complex medical history and hospital stay. For further details, please see the entire medical record. TIME SPENT: Approximately 40 minutes were spent on this discharge, greater than half that time was spent [id number] with the patient and his niece. SHAYNA REIS [id number]/[facility] #: [id number] [place]
== END 2018-12-06 12:30 | DRG 181 ==
LOC: ED 18:14 → MED 23:43 → ICU 12-01 13:10 → MED 12-01 19:00
PROVIDERS: ADMIT Internal Medicine; ATTEND Internal Medicine
PROC: B41G1ZZ Fluoroscopy of Left Lower Extremity Arteries using Low Osmolar Contrast (ICD-10-PCS; 2018-12-01)
PROC: B41C1ZZ Fluoroscopy of Pelvic Arteries using Low Osmolar Contrast (ICD-10-PCS; 2018-12-01)
PROC: X27J385 Dilation of Left Femoral Artery with Sustained Release Drug-eluting Intraluminal Device, Percutaneous Approach, New Technology Group 5 (ICD-10-PCS; 2018-12-01)
PROC: 047J3ZZ Dilation of Left External Iliac Artery, Percutaneous Approach (ICD-10-PCS; 2018-12-01)
PROC: 047D3ZZ Dilation of Left Common Iliac Artery, Percutaneous Approach (ICD-10-PCS; principal; 2018-12-01 07:30)
DX: E11.52 Type 2 diabetes mellitus with diabetic peripheral angiopathy with gangrene (principal); I96 Gangrene, not elsewhere classified; F05 Delirium due to known physiological condition; L97.429 Non-pressure chronic ulcer of left heel and midfoot with unspecified severity; Q21.1 Atrial septal defect; I69.351 Hemiplegia and hemiparesis following cerebral infarction affecting right dominant side; D63.8 Anemia in other chronic diseases classified elsewhere; E78.5 Hyperlipidemia, unspecified; K21.9 Gastro-esophageal reflux disease without esophagitis; F41.9 Anxiety disorder, unspecified; I65.23 Occlusion and stenosis of bilateral carotid arteries; E11.42 Type 2 diabetes mellitus with diabetic polyneuropathy; N18.9 Chronic kidney disease, unspecified; I12.9 Hypertensive chronic kidney disease with stage 1 through stage 4 chronic kidney disease, or unspecified chronic kidney disease; E11.22 Type 2 diabetes mellitus with diabetic chronic kidney disease; F03.90 Unspecified dementia, unspecified severity, without behavioral disturbance, psychotic disturbance, mood disturbance, and anxiety; R29.6 Repeated falls; L89.610 Pressure ulcer of right heel, unstageable; L89.322 Pressure ulcer of left buttock, stage 2; S90.922A Unspecified superficial injury of left foot, initial encounter; S90.921A Unspecified superficial injury of right foot, initial encounter; X58.XXXA Exposure to other specified factors, initial encounter; J02.0 Streptococcal pharyngitis; B95.62 Methicillin resistant Staphylococcus aureus infection as the cause of diseases classified elsewhere; B96.4 Proteus (mirabilis) (morganii) as the cause of diseases classified elsewhere; Z66 Do not resuscitate; I70.1 Atherosclerosis of renal artery; I70.0 Atherosclerosis of aorta; I77.1 Stricture of artery; Z88.8 Allergy status to other drugs, medicaments and biological substances; Z91.040 Latex allergy status; Z91.013 Allergy to seafood; Z86.718 Personal history of other venous thrombosis and embolism; Y92.009 Unspecified place in unspecified non-institutional (private) residence as the place of occurrence of the external cause; Z79.82 Long term (current) use of aspirin; Z87.891 Personal history of nicotine dependence; Z79.02 Long term (current) use of antithrombotics/antiplatelets
CPT/HCPCS: 36415; 71045; 75635; 76937; 80048; 80053; 80164; 80202; 80320; 81003; 82140; 82607; 82728; 82746; 83540; 83550; 83605; 83735; 84484; 85025; 85027; 85347; 85610; 85730; 86140; 87040; 87070; 87077; 87186; 87205; 87640; 87641; 87651; 90686; 93005; 93306; 93880; 93970; 99285; A9270-GY; C1725; C1760; C1769; C1874; C1887; C1894; G0480; G8978-GP-CL; G8979-GP-CJ; J1630; J1644; J1650; J2060; J2250; J2270; J2704; J3370; J3475; J3486; Q9967